=== PATIENT | female | born 1995 | race Caucasian/White ===

== ENCOUNTER 2021-03-03 12:48 | Outpatient (REF) | payer MEDICAID, SELFPAY ==
[2021-03-03 14:52] LABS: MANUAL DIFF FLAG NO
[2021-03-03 14:54] LABS: Basophils Percent Auto 0.1 % (0-2); Eosinophils Absolute Auto 0.1 X10*3/uL (0.0-0.4); Eosinophils Percent Auto 0.6 % (0-4); Hematocrit 44.7 % (37-47); Hemoglobin 14.9 g/dl (12.0-16.0); Imm Gran Abs Auto 0.03 X10*3/uL (0.00-0.03); Imm Gran Pct Auto 0.4 % (0.0-0.4); Lymphocytes Percent Auto 23.4 % (20-40); Mean Corpuscular HGB Conc 33.3 g/dl (31.0-35.0); Mean Corpuscular Hemoglobin 26.7 pg (27.0-33.0); Mean Corpuscular Volume 80.1 fL (80-98); Mean Platelet Volume 11.4 fL (9.4-12.3); Monocytes Absolute Auto 0.5 X10*3/uL (0.1-1.2); Monocytes Percent Auto 6.2 % (2-11); Neutrophils Absolute Auto 5.9 X10*3/uL (2.0-8.3); Neutrophils Percent Auto 69.3 % (45-73); Platelet Count 283 X10*3/uL (160-400); Red Blood Count 5.58 X10*6/uL (4.20-5.50); Red Cell Distribution Width 13.2 % (11.0-16.0); White Blood Count 8.5 X10*3/uL (4.8-10.8)
[2021-03-03 15:00] LABS: Estimated Average Glucose 338 mg/dL; Hemoglobin A1c % 13.4 %
[2021-03-03 15:10] LABS: Alanine Aminotransferase 43 U/L (0-31); Albumin Level 4.6 g/dL (3.5-5.0); Alkaline Phosphatase 123 U/L (39-117); Anion Gap 16 (12-20); Aspartate Amino Transferase 19 U/L (5-31); Bilirubin Total 0.6 mg/dL (0.0-1.0); Blood Urea Nitrogen 12 mg/dL (9-16); C Reactive Protein 1.16 mg/dL (< or = 0.50); Carbon Dioxide 23 mmol/L (22-29); Chloride 104 mmol/L (96-108); Cholesterol 271 mg/dL; Estimated Glomerular Filt Rate > 60; Glucose Random 338 mg/dL (60-115); HDL Cholesterol 38 mg/dL; Iron 62 mcg/dL (30-160); LDL Cholesterol Calculated 167 mg/dl; Percent Iron Saturation 13 % (15-50); Potassium 4.3 mmol/L (3.3-5.1); Sodium 139 mmol/L (135-145); Total Iron Binding Capacity 477 mcg/dL (228-428); Total Protein 7.5 g/dL (6.5-8.0); Triglycerides 330 mg/dL; Unsaturated Iron Binding 415 ug/dL
[2021-03-03 15:34] LABS: Ferritin 240 ng/mL (10-122); TSH reflex Free T4 1.23 uIU/mL (0.32-4.0); Vitamin D 25-OH Total 10.4 ng/mL (>30)
[2021-03-03 15:43] LABS: Folate 16.1 ng/mL (> or = 4.0); Vitamin B12 432 pg/mL (200-900)
[2021-03-04 13:31] LABS: PTHI 50 pg/mL (14-64)
[2021-03-04 21:11] LABS: Insulin Level Total 9.3 uIU/mL
[2021-03-06 17:16] LABS: Zinc 77 mcg/dL (60-130)
[2021-03-07 00:32] LABS: Vitamin A 45 mcg/dL (38-98)
[2021-03-07 06:22] LABS: Vitamin B1 15 nmol/L (8-30)
== END 2021-03-03 12:49 | disposition home or self-care (01) ==
LOC: HO.LAB 12:48
PROVIDERS: PCP Internal Medicine; Referring Provider Internal Medicine; Visit Provider Physician Assistant
DX: E66.01 Morbid (severe) obesity due to excess calories (principal); Z68.44 Body mass index [BMI] 60.0-69.9, adult
CPT/HCPCS: 36415; 80053; 80061; 82306; 82607; 82728; 82746; 83036; 83525; 83540; 83970; 84425; 84443; 84590; 84630; 85025; 86140; 99212

== ENCOUNTER 2021-03-13 11:03 | Outpatient (REF) | payer MEDICAID, SELFPAY ==
--- NOTE | ~2021-03-13 | XR_ITS ---
EXAMINATION: XR CHEST CLINICAL INFORMATION: Bariatric service evaluation. E66.01 COMPARISON: Chest radiograph 10/24/2014. TECHNIQUE: 2 views of the chest were obtained. FINDINGS: Radiographs are mildly underpenetrated. There is no lobar or segmental airspace consolidation or focal groundglass opacity. The costophrenic sulci are clear. The heart is normal in size. The hilar and mediastinal contours and visualized bony structures are unremarkable. XR/XR chest 2V IMPRESSION: Unremarkable examination.
--- NOTE | 2021-03-13 12:54 | ECG_ITS ---
Test Reason : OBESITY Blood Pressure : / mmHG Vent. Rate : 100 BPM Atrial Rate : 100 BPM P-R Int : 180 ms QRS Dur : 108 ms QT Int : 374 ms P-R-T Axes : 039 000 004 degrees QTc Int : 482 ms Normal sinus rhythm Prolonged QT Abnormal ECG When compared with ECG of 05-AUG-2018 12:11, No significant change was found Referred By: Darya Guan Electronically Signed By:Max Rios
[2021-03-14 14:26] LABS: H Pylori Breath Test NOT DETECTED (NOT DETECTED)
== END 2021-03-13 11:04 | disposition home or self-care (01) ==
LOC: HO.XRAY 11:03
PROVIDERS: PCP Internal Medicine; Referring Provider Internal Medicine; Visit Provider Physician Assistant
DX: E66.01 Morbid (severe) obesity due to excess calories (principal); Z11.0 Encounter for screening for intestinal infectious diseases; Z71.3 Dietary counseling and surveillance
CPT/HCPCS: 71046; 83013; 93005; 99211; 99212

== ENCOUNTER 2021-03-31 08:34 | Outpatient (REF) | payer MEDICAID, SELFPAY ==
--- NOTE | ~2021-03-31 | FL_ITS ---
EXAMINATION: XR GI SERIES CLINICAL INFORMATION: Morbid/severe obesity due to excess calories. COMPARISON: None TECHNIQUE: Routine upper GI air-contrast study was performed. FINDINGS: Following oral administration of thick barium and effervescent granules, there is normal propagation of bolus from the oral cavity through the pharynx, esophagus into stomach without any evidence of obstruction, narrowing or stricture. On placing patient supine and prone lying, the course, caliber and peristalsis of the stomach, duodenal bulb and the sweep are normal. The mucosal pattern of the stomach and the duodenum is normal. No gastroesophageal reflux or hiatal hernia seen. FLUOROSCOPY TIME: 1.4 minutes. DOSE AREA PRODUCT: 57.91 uGy-m2 (microgray-meter squared) FL/FL upper GI series IMPRESSION: Unremarkable upper GI air-contrast study.
--- NOTE | ~2021-03-31 | US_ITS ---
EXAMINATION: US COMPLETE ABDOMEN WITH LIVER ELASTOGRAPHY CLINICAL INFORMATION: Morbid obesity. COMPARISON: None. TECHNIQUE: Real-time imaging of the abdominal viscera. Noninvasive ultrasound liver fibrosis assessment is performed using Karen ElastPQ point quantification shear wave elastography (pSWE) with a C5-2 MHz transducer. Multiple elastography samples are obtained. FINDINGS: PANCREAS: Largely obscured by overlying bowel gas. ABDOMINAL AORTA: The proximal, middle, and distal aortic segments are normal in caliber. INFERIOR VENA CAVA: Visualized portions are normal. LIVER: The liver demonstrates normal size, contour and increased echogenicity. No focal lesion or intrahepatic biliary duct dilatation. The right lobe measures 18.0 cm in length. The left lobe measures 16.0 cm in length. Portal flow is towards the liver (hepatopetal). Shear wave liver elastography median stiffness is 1.50 m/s (reference: normal median stiffness is 1.3 m/s or less). IQR/median stiffness to assess sampling precision is 0.19 (reference: good quality data set is IQR/median stiffness of 0.15 or less). GALLBLADDER: Normal. The gallbladder is physiologically distended without evidence of stones, sludge, polyps, wall thickening or pericholecystic fluid. COMMON BILE DUCT: Normal in caliber measuring 0.5 cm in diameter. RIGHT KIDNEY: Normal. No hydronephrosis. No renal calculi or focal parenchymal lesions. The kidney measures 13.5 cm in maximum dimension. LEFT KIDNEY: Normal. No hydronephrosis. No renal calculi or focal parenchymal lesions. The kidney measures 14.0 cm in maximum dimension. SPLEEN: Normal. The spleen measures 12.6 cm in maximum dimension. FREE FLUID: None. US/US abdomen comp w elastography IMPRESSION: 1. There is generalized increase in hepatic echotexture, consistent with fatty infiltration or hepatocellular disease. Please correlate clinically. No focal hepatic mass or intrahepatic biliary dilatation is seen. 2. Liver elastography: Although measurements appear to rule out compensated advanced chronic liver disease, there is statistical variability of the sampling which decreases accuracy. REFERENCE: Society of Radiologists in Ultrasound Liver Stiffness Thresholds (2019): LIVER STIFFNESS THRESHOLDS: *Liver Stiffness equal or less than 1.3 m/s: High probability of being normal. *Liver Stiffness less than 1.7 m/s: In the absence of other known clinical signs, rules out compensated advanced chronic liver disease. *Liver Stiffness 1.7-2.1 m/s: Suggestive of compensated advanced chronic liver disease but need further test for confirmation. *Liver Stiffness over 2.1 m/s: Rules in compensated advanced chronic liver disease. *Liver Stiffness over 2.4 m/s: Suggestive of clinically significant portal hypertension. QUALITY OF DATA SET: *IQR/Median value equal or less than 0.15 implies a quality data set. *IQR/Median value over 0.15 implies a poor quality data set. SIGNIFICANT CHANGE FROM PRIOR EXAM: Significant change if liver stiffness measurement is 10% or greater from prior exam. OTHER CONSIDERATIONS: The stage of liver fibrosis may be overestimated in the setting of acute hepatitis, liver inflammation, elevated liver function tests, hepatic vascular congestion, obstructive cholestasis, non-fasting state, and infiltrative diseases such as amyloidosis and lymphoma. In some patients with NAFLD, the liver stiffness thresholds for compensated advanced chronic liver disease may be lower. In causes other than viral hepatitis and NAFLD, liver stiffness thresholds are not well established.
== END 2021-03-31 08:35 | disposition home or self-care (01) ==
LOC: HO.US 08:34
PROVIDERS: Visit Provider Physician Assistant
DX: Z01.818 Encounter for other preprocedural examination (principal); E66.01 Morbid (severe) obesity due to excess calories; K21.9 Gastro-esophageal reflux disease without esophagitis
CPT/HCPCS: 74240; 76705; 76981

== ENCOUNTER → 2021-04-07 10:32 | Outpatient (BNVA) | payer MEDICAID, SELFPAY | PROVIDERS: PCP Internal Medicine; Visit Provider Dietitian, Registered | DX: E66.01 Morbid (severe) obesity due to excess calories (principal); Z68.43 Body mass index [BMI] 50.0-59.9, adult | CPT/HCPCS: 97802 ==

== ENCOUNTER → 2021-04-23 10:09 | Outpatient (BNVA) | payer MEDICAID, SELFPAY | PROVIDERS: PCP Internal Medicine; Referring Provider Internal Medicine; Visit Provider Physician Assistant ==

== ENCOUNTER → 2021-05-12 09:55 | Outpatient (BNVA) | payer MEDICAID, SELFPAY | PROVIDERS: PCP Internal Medicine; Referring Provider Internal Medicine; Visit Provider Physician Assistant Surgical ==

== ENCOUNTER → 2021-05-14 08:25 | Outpatient (BNVA) | payer MEDICAID, SELFPAY | PROVIDERS: PCP Internal Medicine; Visit Provider Physician Assistant ==

== ENCOUNTER 2021-06-11 15:30 | Outpatient (REF) | payer MEDICAID, SELFPAY ==
[2021-06-11 16:50] LABS: Estimated Average Glucose 126 mg/dL
[2021-06-11 16:55] LABS: Alanine Aminotransferase 96 U/L (0-31); Albumin Level 4.4 g/dL (3.5-5.0); Alkaline Phosphatase 118 U/L (39-117); Aspartate Amino Transferase 38 U/L (5-31); Bilirubin Direct 0.3 mg/dL (0.0-0.5); Bilirubin Total 0.7 mg/dL (0.0-1.0); Total Protein 6.8 g/dL (6.5-8.0)
== END 2021-06-11 15:31 | disposition home or self-care (01) ==
LOC: HO.LAB 15:30
PROVIDERS: PCP Internal Medicine; Referring Provider Internal Medicine; Visit Provider Physician Assistant
DX: E66.01 Morbid (severe) obesity due to excess calories (principal); Z68.43 Body mass index [BMI] 50.0-59.9, adult; R94.31 Abnormal electrocardiogram [ECG] [EKG]; E11.9 Type 2 diabetes mellitus without complications; Z79.4 Long term (current) use of insulin
CPT/HCPCS: 36415; 80076; 83036; 99212

== ENCOUNTER → 2021-06-18 08:46 | Outpatient (BNVA) | payer MEDICAID, SELFPAY | PROVIDERS: PCP Internal Medicine; Visit Provider Surgery ==

== ENCOUNTER → 2021-07-07 08:06 | Outpatient (REF) | payer MEDICAID, SELFPAY ==
--- NOTE | 2021-07-07 08:10 | CA_ITS ---
Transthoracic Echocardiogram Patient (Last, First, Middle): Yulia Ryan, Gender: Female Date of : 1995 Age: 25 Procedure Date: 07/07/2021 Procedure Type: Transthoracic Echocardiogram Location: OP Height: 162.56 cm Weight: 135.17 kg BSA: 2.32 m2 Heart Rate: bpm BP: 130 / 80 mmHg Preload Supervisor: DEONNA Genao MD: Darya Guan PA-C Symptoms: R94.31 - Abnormal electrocardiogram [ECG] [EKG] Study Quality: Technically Difficult/Contrast ECG Rhythm: Sinus Conclusions: - The left ventricular systolic function is moderately decreased. The calculated ejection fraction is 34% by biplane method. - No obvious valvular pathology seen on this study. Findings Procedure Information Contrast agent, definity, is being given per protocol without apparent complications. Left Ventricle Normal left ventricular cavity size. There is normal left ventricular wall thickness. The left ventricular systolic function is moderately decreased. The calculated ejection fraction is 34% by biplane method. There is moderate global hypokinesis. Diastolic function is normal for age. Right Ventricle Normal right ventricular cavity size and systolic function. TAPSE 2cm. Atria Both atria are normal in size. Aortic Valve There is a normal trileaflet aortic valve. There is no aortic valve stenosis. There is no aortic valve regurgitation. Mitral Valve The mitral valve appears normal. There is no mitral valve regurgitation. There is no mitral valve stenosis. Pulmonic Valve The pulmonic valve was not well visualized. Tricuspid Valve Normal tricuspid valve structure. There is trace tricuspid valve regurgitation. The pulmonary artery systolic pressure is normal. Great Vessels The aortic annulus, sinuses of valsalva, asc aorta, and aortic arch are normal in size. Venous The inferior vena cava is normal in size and collapses less than 50% with inspiration. Pericardium/Pleural There is no evidence of pericardial effusion. Prior Study Comparison No prior study available for comparison. Recommendations, Care & Conclusions No obvious valvular pathology seen on this study. Measurements 2D Linear Measurements IVSd: 1.07 0.6-0.9/0.6-1.0 cm LVIDd: 5.30 3.9-5.3/4.2-5.9 cm LVIDd Index: 2.28 2.4-3.2/2.2-3.1 cm/m2 LVIDs: 4.07 2.0-3.6 cm LVPWd: 0.90 0.7-1.1 cm Ao Root: 2.90 2.1-3.5 cm LA Diam: 3.60 2.7-3.8/3.0-4.0 cm LAIDs Index: 1.55 1.5-2.3 cm/m2 LV Mass: 245.44 67-162/88-224 g LV Mass Index: 105.79 43-95/49-115 g/m2 LVOT Diam: 2.10 3.0+(-)1.3 cm 2D Systolic Function EF 4C: 39.10 >55% EF 2C: 32.20 >55% EF BiP: 33.90 >55% Mitral Valve MV Pk E: 0.87 MV PK A: 0.59 MV Decel Time: 236.00 E/A: 1.50 E'Lateral: 10.90 E'Medial: 7.40 E/E' Med: 11.80 E/E' Lat: 8.00 PHT: 69.00 MVA PHT: 3.19 Decel Castro: 3.70 Aortic Valve AoV Pk Ras: 1.55 AoV Mn Ras: 1.09 AoV VTI: 0.30 AoV Pk Grad: 10.00 Aov Mn Grad: 5.00 VICK Cont.VTI: 2.29 LVOT LVOT Pk Ras: 0.92 LVOT Mn Ras: 0.68 LVOT VTI: 0.20 LVOT Pk Grad: 3.00 LVOT Mn Grad: 2.00 LVOT Diam: 2.10 LVOT Area: 3.46 Diastolic Function MV Pk E: 0.87 MV Pk A: 0.59 E/A: 1.50 E'Medial: 7.40 E/E' Med: 11.80 E' Laterial: 10.90 E/E' Lat: 8.00 Right Ventricle TAPSE (mm): 1.98 TVS' Ras: 13.40 Tricuspid Valve TR Pk Ras: 2.10 TR Pk Grad: 18.00 RA Press: 8.00 RVSP: 26.00 Great Vessels Aorta Ao Root-2D: 2.90 2.0-3.7 cm Ao Asc: 2.80 2.1-3.4 cm Ao Arch: 2.60 Updated in Other Vendor System with Status of Final Nicolas Bauman MD electronically signed on 07/07/2021 4:46:57 PM with status of Final
== END ==
LOC: HO.CARD 08:06
PROVIDERS: Visit Provider Physician Assistant
DX: R94.31 Abnormal electrocardiogram [ECG] [EKG] (principal)
CPT/HCPCS: 93306; Q9957

== ENCOUNTER → 2021-07-18 08:06 | Outpatient (BNVA) | payer MEDICAID, SELFPAY | PROVIDERS: PCP Internal Medicine; Visit Provider Surgery ==

== ENCOUNTER → 2021-07-23 14:50 | Outpatient (BNVA) | payer MEDICAID, SELFPAY | PROVIDERS: PCP Internal Medicine; Referring Provider Surgery; Visit Provider Internal Medicine Cardiovascular Disease | DX: Z01.810 Encounter for preprocedural cardiovascular examination (principal); I42.9 Cardiomyopathy, unspecified; E66.01 Morbid (severe) obesity due to excess calories; Z68.42 Body mass index [BMI] 45.0-49.9, adult | CPT/HCPCS: 99202 ==

== ENCOUNTER → 2021-08-11 07:50 | Outpatient (BNVA) | payer MEDICAID, SELFPAY | PROVIDERS: PCP Internal Medicine; Visit Provider Surgery ==

== ENCOUNTER → 2021-08-22 10:46 | Outpatient (REF) | payer MEDICAID, SELFPAY ==
--- NOTE | 2021-08-22 10:49 | CA_ITS ---
Acquisition Time: 2021-08-22 10:53:22 Total Exercise Time: 00:08:51 Test Indications: CARDIOMYOPATHY Medications: SEE CHART Protocol: LIYA Max HR: 184 BPM 93% of Pred: 196 BPM Max BP: 172/084 mmHG Max Work Load: 10.1 METS Exercise stress test with exercise 8 min 51 sec of Liya protocol, without anginal symptoms, without arrythmia, with normotensive response to exercise, without EKG changes meeting criteria for ischemia. Echo images obtained by tech at rest and immediately post peak exercise. Definity contrast used. Test reviewed with Dr Bauman. Referred By: Max Rios Overread By: ELINA CARMEN
== END ==
LOC: HO.CARD 10:46
PROVIDERS: Visit Provider Internal Medicine Cardiovascular Disease
DX: I42.9 Cardiomyopathy, unspecified (principal)
CPT/HCPCS: 93350; Q9957

== ENCOUNTER → 2021-08-27 12:57 | Outpatient (BNVA) | payer MEDICAID, SELFPAY | PROVIDERS: PCP Internal Medicine; Referring Provider Internal Medicine; Visit Provider Physician Assistant Surgical ==

== ENCOUNTER 2021-09-03 06:43 | Inpatient (IN) | payer MEDICAID, SELFPAY ==
[2021-08-29 07:16] LABS: MANUAL DIFF FLAG NO
[2021-08-29 07:48] LABS: Basophils Percent Auto 0.3 % (0-2); Eosinophils Absolute Auto 0.1 X10*3/uL (0.0-0.4); Eosinophils Percent Auto 0.7 % (0-4); Hematocrit 38.9 % (37.0-47.0); Imm Gran Abs Auto 0.01 X10*3/uL (0.00-0.03); Imm Gran Pct Auto 0.1 % (0.0-0.4); Lymphocytes Absolute Auto 2.7 X10*3/uL (1.2-4.9); Lymphocytes Percent Auto 37.9 % (20-40); Mean Corpuscular HGB Conc 33.4 g/dl (31.0-35.0); Mean Corpuscular Hemoglobin 28.4 pg (27.0-33.0); Mean Corpuscular Volume 84.9 fL (80.0-98.0); Mean Platelet Volume 12.4 fL (9.4-12.3); Monocytes Absolute Auto 0.5 X10*3/uL (0.1-1.2); Monocytes Percent Auto 7.1 % (2-11); Neutrophils Absolute Auto 3.8 x10*3/uL (2.0-8.3); Neutrophils Percent Auto 53.9 % (45-73); Platelet Count 242 X10*3/uL (160-400); Red Blood Count 4.58 X10*6/uL (4.20-5.50); Red Cell Distribution Width 13.3 % (11.0-16.0); White Blood Count 7.1 X10*3/uL (4.8-10.8)
[2021-08-29 07:52] LABS: INTERNATIONAL NORM RATIO 1.3 (0.9-1.1); Prothrombin Time 14.5 SEC (9.9-13.0)
[2021-08-29 07:55] LABS: Partial Thromboplastin Time 41.1 SEC (24.1-38.0)
[2021-08-29 08:24] LABS: Estimated Average Glucose 91 mg/dL; Hemoglobin A1c % 4.8 %
[2021-08-29 08:36] LABS: Alanine Aminotransferase 71 U/L (0-31); Albumin Level 4.1 g/dL (3.5-5.0); Alkaline Phosphatase 95 U/L (39-117); Anion Gap 15 (12-20); Aspartate Amino Transferase 37 U/L (5-31); Bilirubin Total 0.9 mg/dL (0.0-1.0); Blood Urea Nitrogen 9 mg/dL (9-16); C Reactive Protein 0.88 mg/dL (< or = 0.50); Calcium 9.9 mg/dL (8.4-10.2); Carbon Dioxide 24 mmol/L (22-29); Chloride 105 mmol/L (96-108); Cholesterol 196 mg/dL; Estimated Glomerular Filt Rate > 60; Glucose Random 91 mg/dL (60-115); HDL Cholesterol 28 mg/dL; LDL Cholesterol Calculated 147 mg/dl; Potassium 3.9 mmol/L (3.3-5.1); Sodium 140 mmol/L (135-145); Total Protein 6.7 g/dL (6.5-8.0); Triglycerides 107 mg/dL
[2021-08-29 08:46] LABS: TSH reflex Free T4 2.55 uIU/mL (0.32-4.0)
[2021-08-29 12:39] VITALS: BMI 46.1
[2021-08-29 20:49] LABS: Insulin 9 uU/mL (2-29)
--- NOTE | 2021-09-01 19:59 | MHC.SHP ---
Pre-Procedural Eval Section A Date of Service: 09/01/21 The patient is an INPATIENT: Yes The History & Physical has been completed within 30 days and I have reviewed it.: No Section B Chief Complaint: obesity Relevant Family History (Specify if Yes): Yes Relevant Social History: None Present Medications: None Medical History: No relevant PMH History of Previous Operations: No relevant previous surgery Allergies: Allergies Allergy/AdvReac Type Severity Reaction Status Date / Time No Known Allergies Allergy Verified 08/29/21 12:39 [No Known Allergies*] Review of Systems Sugical H&P ROS: Negative: Constitution, Cardiovascular, Respiratory, Neurological, Psychiatric, Hem-Onc, Allergic/Immunologic, Gastrointestinal, Genitourinary, Musculoskeletal, Integumentary, Endocrine and Eyes/Ears/Nose/Throat Exam Surgical H&P Exam: Normal: HEENT, Normal: Heart, Normal: Lungs, Normal: Extremities, Normal: Abdomen, Normal: Skin and Normal: Neurological Plan Diagnosis/Plan: Unchanged I have reviewed the history and physical and performed a pertinent physical examination on my patient. No changes have occurred unless specified.
--- NOTE | 2021-09-02 10:58 | HO.ANESPROP2 ---
Documented by User: Cheyenne Rojas NP 09/02/21 11:03 HPI - Anesthesia Eval Consult details Narrative: 25yo F for Gastrectomy Sleeve,EGD,poss diaphragmatic hernia,poss ventral hernia,poss open, Cardiac cleared at low to intermed risk PMFSH Active Problems Active Problems: All Active Problems (Updated 08/29/21 @ 12:43 by Dinah Pizano, RN) Morbid obesity (Acute) MDD (major depressive disorder), recurrent episode, moderate (Acute) Abnormal ECG (Acute) Insulin dependent type 2 diabetes mellitus (Acute) Low left ventricular ejection fraction (Acute) Cardiomyopathy (Acute) Preop cardiovascular exam (Acute) Hypertension (Acute) Past Medical History Medical History (Updated 08/29/21 @ 12:43 by Dinah Pizano RN) Hypertension MARCIA (obstructive sleep apnea) Family History Family History Mother Bipolar 1 disorder Father Heart disease Brother No problems noted. Brother No problems noted. Sister No problems noted. Surgical History Surgical History No significant past surgical history Social History Social History (Updated 08/29/21 @ 12:37 by Dinah Pizano RN) Household Members Other:: mother Are you a primary manager of care to a significant other at home: No Do you presently have visiting nurse or other home services: No Alcohol intake: never Patient Tobacco Use Status: Never used Tobacco Use of substances other than those prescribed or required for medical reasons: No Have you been hit, kicked, punched, or otherwise hurt by someone within the past year? If so, by whom?: No Are you DNR?: No Advance Directives: No Advance Directives Information Provided: Yes Advance Directives on File: No Recently lost weight without trying: No Patient : No FDLMP: 08/28/2021 : No Poor oral hygiene: No Meds Allergies Allergy/AdvReac Type Severity Reaction Status Date / Time No Known Allergies Allergy Verified 08/29/21 12:39 [No Known Allergies*] Exam Exam Date and Time: September 02, 2021 1058 Height,Weight and Vital Signs: Height 5 ft 4 in Weight 122.016 kg Pertinent Lab Results Pertinent Lab Results: Laboratory Tests 08/29/21 08/29/21 08/29/21 07:10 07:14 07:14 WBC 7.1 RBC 4.58 Hgb 13.0 Hct 38.9 MCV 84.9 MCH 28.4 MCHC 33.4 RDW 13.3 Plt Count 242 MPV 12.4 H Immature Gran % (Auto) 0.1 Neut % (Auto) 53.9 Lymph % (Auto) 37.9 [place] % (Auto) 7.1 Eos % (Auto) 0.7 Baso % (Auto) 0.3 Lymph # (Auto) 2.7 [place] # (Auto) 0.5 Eos # (Auto) 0.1 Baso # (Auto) 0.0 Abs Immat Gran (auto) 0.01 Absolute Neuts (auto) 3.8 Absolute Nucleated RBC 0.000 Nucleated RBC % (auto) 0.0 PT 14.5 H INR 1.3 H APTT 41.1 H Sodium Potassium Chloride Carbon Dioxide Anion Gap BUN Creatinine Estim Creat Clear Calc Estimated GFR Random Glucose Estimat Average Glucose Hemoglobin A1c % Insulin Level Calcium Total Bilirubin AST ALT Alkaline Phosphatase C-Reactive Protein Total Protein Albumin Triglycerides Cholesterol LDL Cholesterol, Calc HDL Cholesterol TSH Blood Type O Positive Antibody Screen NEGATIVE 08/29/21 08/29/21 07:14 07:14 WBC RBC Hgb Hct MCV MCH MCHC RDW Plt Count MPV Immature Gran % (Auto) Neut % (Auto) Lymph % (Auto) [place] % (Auto) Eos % (Auto) Baso % (Auto) Lymph # (Auto) [place] # (Auto) Eos # (Auto) Baso # (Auto) Abs Immat Gran (auto) Absolute Neuts (auto) Absolute Nucleated RBC Nucleated RBC % (auto) PT INR APTT Sodium 140 Potassium 3.9 Chloride 105 Carbon Dioxide 24 Anion Gap 15 BUN 9 Creatinine 0.57 Estim Creat Clear Calc TNP Estimated GFR > 60 Random Glucose 91 Estimat Average Glucose 91 Hemoglobin A1c % 4.8 Insulin Level 9 Calcium 9.9 Total Bilirubin 0.9 AST 37 H ALT 71 H Alkaline Phosphatase 95 C-Reactive Protein 0.88 H Total Protein 6.7 Albumin 4.1 Triglycerides 107 Cholesterol 196 D LDL Cholesterol, Calc 147 HDL Cholesterol 28 D TSH 2.55 Blood Type Antibody Screen Narrative Narrative: EKG 03/2021 Vent. Rate : 100 BPM ? ? Atrial Rate : 100 BPM ?? P-R Int : 180 ms? QRS Dur : 108 ms ? ? QT Int : 374 ms ? ? ? P-R-T Axes : 039 000 004 degrees ?? QTc Int : 482 ms ? Normal sinus rhythm Prolonged QT Abnormal ECG When compared with ECG of 05-AUG-2018 12:11, No significant change was found ECHO 06/2021 Conclusions: - The left ventricular systolic function is moderately decreased. The calculated ejection fraction is 34% by biplane method. ? ? ? - No obvious valvular pathology seen on this study.? ?? Stress ECHO 08/2021 Normal LVEF without any regional wall motion abnormalities (RWMA)? at rest. LV size is smaller after stress with appropriate augmentation of the LVEF. There are no RWMA on the post stress images. ? Impression: Normal stress echocardiogram. Assessment and Plan Assessment Anesthesia Assessment: Chart Reviewed Documented by User: Arthur Givens MD 09/03/21 07:14 [facility] Past Medical History Medical History (Updated 08/29/21 @ 12:43 by Dinah Pizano RN) Hypertension MARCIA (obstructive sleep apnea) Family History Family History Mother Bipolar 1 disorder Father Heart disease Brother No problems noted. Brother No problems noted. Sister No problems noted. Family history of problems with anesthesia: No Surgical History Surgical History No significant past surgical history History of Problems with Anesthesia: No Social History Social History (Updated 08/29/21 @ 12:37 by Dinah Pizano RN) Household Members Other:: mother Are you a primary manager of care to a significant other at home: No Do you presently have visiting nurse or other home services: No Alcohol intake: never Patient Tobacco Use Status: Never used Tobacco Use of substances other than those prescribed or required for medical reasons: No Have you been hit, kicked, punched, or otherwise hurt by someone within the past year? If so, by whom?: No Are you DNR?: No Advance Directives: No Advance Directives Information Provided: Yes Advance Directives on File: No Recently lost weight without trying: No Patient : No FDLMP: 08/28/2021 : No Poor oral hygiene: No Meds Allergies Allergy/AdvReac Type Severity Reaction Status Date / Time No Known Allergies Allergy Verified 08/29/21 12:39 [No Known Allergies*] Exam Airway Mallampati Class: I TM Dist: >3cm Neck ROM: Full Assessment and Plan Assessment Anesthesia Assessment: Anesthesia Plan Discussed Final Anesthetic Review Family History of Problems with Anesthesia: No History of Problems with Anesthesia: No NPO: Yes ASA Class: III Final Preanesthetic Review: No Changes in Pt Med Stat, Meds/Allgs Chart Reviewed, Consent Obtained/Reviewed and Anes Risks/Benef Reviewed Patient Risk: Intermediate Procedure Risk: Intermediate Anesthetic Plan Anesthetic Plan: GA Disposition: Inp. Admit - Standard Bed
[2021-09-02 13:13] LABS: COVID-19 Test Negative (Negative)
[2021-09-03] VITALS (12 sets, daily range): BP systolic 135–156; BP diastolic 74–98; PULSE 68–113; RESP 16–24; TEMP 36.2–37.2; O2SAT 98–100
--- NOTE | 2021-09-03 07:14 | P.CONAN_ITS ---
[facility] Active Problems Active Problems: All Active Problems (Updated 08/29/21 @ 12:43 by Dinah Pizano RN) Morbid obesity (Acute) MDD (major depressive disorder), recurrent episode, moderate (Acute) Abnormal ECG (Acute) Insulin dependent type 2 diabetes mellitus (Acute) Low left ventricular ejection fraction (Acute) Cardiomyopathy (Acute) Preop cardiovascular exam (Acute) Hypertension (Acute) Past Medical History Medical History (Updated 08/29/21 @ 12:43 by Dinah Pizano RN) Hypertension MARCIA (obstructive sleep apnea) Family History Family History Mother Bipolar 1 disorder Father Heart disease Brother No problems noted. Brother No problems noted. Sister No problems noted. Family history of problems with anesthesia: No Surgical History Surgical History No significant past surgical history History of Problems with Anesthesia: No Social History Social History (Updated 08/29/21 @ 12:37 by Dinah Pizano RN) Household Members Other:: mother Are you a primary personal care attendant to a significant other at home: No Do you presently have visiting nurse or other home services: No Alcohol intake: never Patient Tobacco Use Status: Never used Tobacco Use of substances other than those prescribed or required for medical reasons: No Have you been hit, kicked, punched, or otherwise hurt by someone within the past year? If so, by whom?: No Are you DNR?: No Advance Directives: No Advance Directives Information Provided: Yes Advance Directives on File: No Recently lost weight without trying: No Patient : No FDLMP: 08/28/2021 : No Poor oral hygiene: No Meds Allergies Allergy/AdvReac Type Severity Reaction Status Date / Time No Known Allergies Allergy Verified 08/29/21 12:39 [No Known Allergies*] Active Medications: Current Medications Lactated Ringer's (Lr) 1,000 mls @ 100 mls/hr IVCONT .Q10H SAGE Lactated Ringer's (Lr) 1,000 mls @ 999 mls/hr IV .Q1H1M SAGE Stop: 09/03/21 07:45 Exam Exam Date and Time: September 03, 2021 0714 Height,Weight and Vital Signs: Height 5 ft 4 in Weight 122.016 kg Pertinent Lab Results Pertinent Lab Results: Laboratory Tests 08/29/21 08/29/21 08/29/21 07:10 07:14 07:14 WBC 7.1 RBC 4.58 Hgb 13.0 Hct 38.9 MCV 84.9 MCH 28.4 MCHC 33.4 RDW 13.3 Plt Count 242 MPV 12.4 H Immature Gran % (Auto) 0.1 Neut % (Auto) 53.9 Lymph % (Auto) 37.9 [place] % (Auto) 7.1 Eos % (Auto) 0.7 Baso % (Auto) 0.3 Lymph # (Auto) 2.7 [place] # (Auto) 0.5 Eos # (Auto) 0.1 Baso # (Auto) 0.0 Abs Immat Gran (auto) 0.01 Absolute Neuts (auto) 3.8 Absolute Nucleated RBC 0.000 Nucleated RBC % (auto) 0.0 PT 14.5 H INR 1.3 H APTT 41.1 H Sodium Potassium Chloride Carbon Dioxide Anion Gap BUN Creatinine Estim Creat Clear Calc Estimated GFR Random Glucose Estimat Average Glucose Hemoglobin A1c % Insulin Level Calcium Total Bilirubin AST ALT Alkaline Phosphatase C-Reactive Protein Total Protein Albumin Triglycerides Cholesterol LDL Cholesterol, Calc HDL Cholesterol TSH COVID-19 (DANIA) COVID-19 Clin Com Blood Type O Positive Antibody Screen NEGATIVE 08/29/21 08/29/21 09/02/21 07:14 07:14 12:45 WBC RBC Hgb Hct MCV MCH MCHC RDW Plt Count MPV Immature Gran % (Auto) Neut % (Auto) Lymph % (Auto) [place] % (Auto) Eos % (Auto) Baso % (Auto) Lymph # (Auto) [place] # (Auto) Eos # (Auto) Baso # (Auto) Abs Immat Gran (auto) Absolute Neuts (auto) Absolute Nucleated RBC Nucleated RBC % (auto) PT INR APTT Sodium 140 Potassium 3.9 Chloride 105 Carbon Dioxide 24 Anion Gap 15 BUN 9 Creatinine 0.57 Estim Creat Clear Calc TNP Estimated GFR > 60 Random Glucose 91 Estimat Average Glucose 91 Hemoglobin A1c % 4.8 Insulin Level 9 Calcium 9.9 Total Bilirubin 0.9 AST 37 H ALT 71 H Alkaline Phosphatase 95 C-Reactive Protein 0.88 H Total Protein 6.7 Albumin 4.1 Triglycerides 107 Cholesterol 196 D LDL Cholesterol, Calc 147 HDL Cholesterol 28 D TSH 2.55 COVID-19 (DANIA) Negative COVID-19 Clin Com See Note Blood Type Antibody Screen Assessment and Plan Final Anesthetic Review Family History of Problems with Anesthesia: No History of Problems with Anesthesia: No
[2021-09-03 07:24] LABS: Glucose, Whole Blood 84 mg/dL (60-115)
[2021-09-03] MEDS: Lactated Ringers 1,000 ML 999 ML IV (07:50)
[2021-09-03] MEDS: Lactated Ringers 1,000 ML 100 ML IVCONT ×3 (07:50→21:17)
--- NOTE | 2021-09-03 08:11 | PC.NURSE ---
Patient arrived to preop for prep. Attempted to urinate x3 to obtain sample for HCG. Unable to obtain sample. Per patient, she has never had intercourse. Dr. Givens and Dr. Gutierrez aware. Okay per both doctors to proceed with surgery without urine sample to check for .
--- NOTE | 2021-09-03 11:03 | P.DS_ITS ---
DS: Providers Provider Date of Service: 09/04/21 Date of admission: 09/03/21 06:43 Primary care physician: Marcella Khan MD DS: Summary Hospital Course Hospital Course: ADMITTING DIAGNOSIS: morbid obesity, HTN DISCHARGE DIAGNOSIS: same, s/p laparoscopic sleeve gastrectomy PAST SURGICAL HISTORY: none PROCEDURE: upper endoscopy, laparoscopic sleeve gastrectomy DISCHARGE SUMMARY: History of Present Illness: The patient is a 25 year-old woman with a BMI of 61.9 kg/m2 and associated co- morbidities as described above. The patient had extensive work-up,lost 96.8 lbs preoperatively and was electively scheduled for laparoscopic, possible open sleeve gastrectomy and gastropexy. Risks and complications of the surgery were discussed with the patient in advance, particularly the possibility of , pulmonary embolism, anastomotic leak, bleeding, bowel injury, GERD, cardiac, renal or pulmonary complications. The patient understood all the risks and was in agreement with the surgical plan. Hospital Course: The patient underwent an uneventful laparoscopic sleeve gastrectomy with gastropexy on the day of admission. Postoperatively, the patient was transferred to the surgical floor. The patient received IV Acetaminophen and IV dilaudid for pain control. Patient was started on bariatric phase 1 diet POD #0. On postoperative day one, the patient was feeling well without nausea, vomiting, fevers, or tachycardia. The patient had some mild incisional pain and the abdomen was soft. On the morning of postoperative day one, the patient was continued on 1 ounce of water or ice every half hour. During the day, the patient did fairly well, having some incisional pain, but able to ambulate adequately and to tolerate liquids well. Since the patient is doing well, we decided that the patient was ready to be discharged. The patient was given instructions to follow-up with me next week and to call my office for any fever over 101, persistent abdominal pain, nausea, vomiting, GERD, symptoms of DVT such as calf tenderness, or leg swelling, or pulmonary embolism such as chest pain or shortness of breath. The patient was also instructed to drink 40-60 ounces of liquids per day using the 1-ounce cups. The patient had been given prescriptions for Tylenol for pain, Zofran prn for nausea, and pantoprazole and carafate previously. The patient was encouraged to ambulate and use the incentive spirometer. The patient was allowed to shower, but no baths, and encouraged to stay active at home. All of these instructions were given to the patient personally. All questions were answered and the patient understood all instructions, the instructions were also given to the patient in print. Time Spent with Patient Time attestation: Total time spent providing and/or coordinating discharge services: Discharge coordination time: Less than 30 minutes Quality: Stroke Does the patient have a stroke diagnosis?: No Physical Exam Verdana 4l Vital Signs: Verdana 4d Verdana 4d Vital Signs: Verdana 4d Verdana 4Bd Last Vital Signs Verdana 4d Stove Mounter New 4d Stove Mounter New 4d Temp 97.5 F 09/03/21 07:23 Stove Mounter New 4d Pulse 91 09/03/21 07:23 Stove Mounter New 4d Resp 16 09/03/21 07:23 BP 139/86 09/03/21 07:23 Pulse Ox 99 09/03/21 07:23 BMI result Body Mass Index 46.1 DS: Data Data Completed and Pending Pending studies at discharge: Pending at discharge 09/03/21 10:30 Surgical [PTH] Routine Labs on day of discharge: Laboratory Results - last 24 hr 09/02/21 09/03/21 12:45 07:20 POC Glucose 84 COVID-19 (DANIA) Negative COVID-19 Clin Com See Note Discharge Plan Discharge Anticipated Discharge Date/Time: 09/04/21 10:00 Patient Disposition: Home, Self-Care Discharge Diagnosis: s/p sleeve gastrectomy Referrals: Marcella Khan MD [Primary Care Provider] - 1 Week Discharge Medications: Continued (DME) blood-glucose meter [Blood Glucose Monitoring] Kit See Rx Instructions .Route Qty: 1 0RF Rx Instructions: As directed metoprolol succinate [Toprol XL] 25 mg tablet extended release 24 hr 25 mg PO DAILY Qty: 30 3RF pantoprazole 40 mg tablet,delayed release (DR/EC) 40 mg PO DAILY Qty: 30 2RF sucralfate 100 mg/mL suspension 10 ml PO BID Qty: 400 2RF ondansetron HCl 4 mg tablet 4 mg PO Q12H Qty: 20 0RF Discontinued cholecalciferol (vitamin D3) 50 mcg (2,000 unit) tablet 50 mcg PO DAILY 180 Days Qty: 180 3RF cyanocobalamin (vitamin B-12) 500 mcg tablet 500 mcg PO DAILY Qty: 30 6RF polyethylene glycol 3350 [Miralax] 17 gram powder in packet 17 g PO DAILY Qty: 14 0RF Rx Instructions: Mix each packet with 8oz of water and do 7 packets on 09/01/21 and another 7 packets on 09/02/21 Discharge Orders: Discharge Order (Routine); Ordered 09/04/21 Ordered By: Ruben Bird Diet: other Activity on Discharge: No heavy lifting Stand Alone Forms: Patient Portal Discharge page Care Plan Goals: weight loss Health Concerns: morbid obesity Plan of Treatment: No tub baths, sex or returning to work until discussed at first post op appointment. No exercise, alcohol, tobacco or illegal drug use. Continue to use incentive spirometer hourly while awake. Walk in home for 5- 10 minutes every 2 hours during the first week. Continue phase 1 diet today and start phase 2 diet tomorrow morning. Follow all instructions in the bariatric handbook and call with any questions. 1. Please call your doctor or come back to the emergency room should any new symptoms arise. 2. You will receive a courtesy call from [facility] 24-48 hours after discharge. 3. Activity: abstain from alcohol, practice limited stair climbing, no bending, no driving, no exercise, no illicit substances, no lifting, no sex, no tub bath, no work. 4. Diet: continue as discussed with Dr. Bird. 5. Dressing Change/Wound Care: Do not change or remove surgical dressings unless they are wet or soiled. 6. Call your doctor if: - Your temperature exceeds 101.5 F - You experience excessive pain or swelling - You have an unexpected reaction to medication - You have excessive bleeding - You experience continued vomiting/nausea - Your incision begins to separate - Your incision shows signs of infection such as increased redness, swelling, excessive pain, heat, or drainage (light blood or clear fluid is normal) 7. General instructions: No lifting greater than 5 lbs for the next 4 weeks[address] driving within 24 hours of taking narcotic pain medications. If you do not move your bowels in the next 2 days, please take milk of magnesia over the counter. Please follow the post op diet and do not advance your diet until you are seen in the office in about 2 weeks. Please walk around your home every hour or two to prevent blood clots from forming in your legs. You do not need to wake from sleeping to walk. Please sleep in a bed or couch to prevent kinking at the hips and knees. Please take your incentive spirometer (your lung humanities professor) home with you and use it for the next few days to prevent pneumonias. You may shower, no hot tubs, baths or swimming pools. Please call the office with any questions or concerns such as increasing abdominal pain, fever, chills, shortness of breath, chest pain, leg pain or swelling, or redness or drainage from your incisions. Do not hesitate to contact the office with any questions at . The patient's medical history has been reviewed and they are considered low risk for post op DVT and therefore DVT prophylaxis is not considered necessary. Travel after surgery was reviewed. The patient has not disclosed any travel plans during the first 30 days after surgery and they have been advised that within the first 30 days after surgery any bus, plane, train or car travel over 2 hours in duration is contraindicated due to the possibility of developing blood clots from immobility. Any travel, needs to include periods of ambulation of 10 minutes in duration every 2 hours. The patient was instructed to discuss any plans for travel during this period with their bariatric surgeon. Assessment: stable post op sleeve gastrectomy
[2021-09-03 12:09] LABS: Hematocrit 38.9 % (37.0-47.0); Hemoglobin 13.2 g/dl (12.0-16.0)
[2021-09-03 12:25] LABS: Anion Gap 22 (12-20); Blood Urea Nitrogen 6 mg/dL (9-16); Calcium 9.5 mg/dL (8.4-10.2); Carbon Dioxide 20 mmol/L (22-29); Chloride 100 mmol/L (96-108); Estimated Glomerular Filt Rate > 60; Glucose Random 183 mg/dL (60-115); Potassium 3.5 mmol/L (3.3-5.1); Sodium 138 mmol/L (135-145)
[2021-09-03] MEDS: ondansetron HCL 4 MG/2 ML VIAL IVPUSH ×2 (12:26→19:11)
[2021-09-03] MEDS: Famotidine/PF 20 MG/2 ML VIAL IVPUSH ×2 (12:26→21:17)
[2021-09-03] MEDS: ceFAZolin Sodium/Dextrose,Iso 2 GM/50 ML PIGGYBACK IV (14:25)
--- NOTE | 2021-09-03 15:03 | MHC.CM.PN ---
CM meet with patient. A&O x3 able to make needs known and answer questions. Patient reports living at home with her mother. Will not need services on d/c. Anticipate D/C 09/04 AM.
--- NOTE | 2021-09-03 17:20 | P.BOP_ITS ---
Brief Operative Note Date of Service: 09/03/21 Pre-op diagnosis: Morbid obesity with comorbid conditions (see below) Post-op diagnosis: same Procedure: INITIAL PATIENT BMI ON PRESENTATION AT OUR OFFICE: 61.9 kg/m2 LAST BMI BEFORE SURGERY: 46.7 kg/m2 COMORBIDITIES: insulin dependent diabetes, cardiomyopathy, liver steatosis, liver fibrosis ?The patient presented to the Weight Management Program with significant obesity that was negatively impacting the patient's comorbidities as listed above.? The program is a phased program with a special focus on preoperative medical weight management to promote substantial weight loss and prepare the patients for the second phase of the program: bariatric surgery. The patient participated in an intensive weekly lifestyle ?intervention and exercise program during which the patient ?has lost between the initial office visit and the last preoperative visit 102 lbs, or 27.4% of initial actual body weight. It was deemed appropriate for the patient to now have bariatric surgery. In light of the current Covid-19 pandemic and the well documented strong association of obesity and increased risk of worse outcomes if infected with Covid-19 (REFERENCES: https://pubmed.ncbi.nlm.nih.gov/69288836/ ,? https://pubmed.ncbi.nlm.nih.gov/80457743/ ), any delay in undergoing bariatric surgery may lead to the patient's worsening health condition and increased?risk of more severe Covid-19 disease if infected. In addition a recent?study from [facility] published in [facility] on 08/04/2021 ([email or web address]:/[id number]) found that, among patients with obesity, substantial weight loss achieved with surgery was associated with improved outcomes of COVID-19 infection. The findings suggest that obesity can be a modifiable risk factor for the severity of COVID-19 infection. In addition, the patient met the BMI-criteria for bariatric surgery based on the BMI on initial presentation. The patient should not be penalized for achieving such weight loss because ?it is not sustainable long-term without surgical intervention and it was achieved in preparation for bariatric surgery ?under my direction and based on my published research ([email or web address]).pdf and? https://www.soard.org/article/[email or web address](86)15983-X/pdf ) ?that a 10% preoperative weight loss improves long-term weight loss after surgery and reduces perioperative complications.? Insurance carriers such as [facility] have endorsed my recommendations ?and have included in their policies criteria to include a 10% preoperative weight loss requirement. PROCEDURE: Esophago-gastroscopy, laparoscopic sleeve gastrectomy and laparoscopic gastropexy INDICATIONS: This is a 25 year-old female who was electively scheduled for laparoscopic, possibly open sleeve gastrectomy. The risks and complications of the procedure were discussed with the patient in advance, particularly the possibility of ; pulmonary embolism; staple line leak; bleeding; GERD; cardiac, pulmonary, or renal complications; as well as long-term problems such as insufficient weight loss, vitamin deficiency, strictures, or ulcers. The patient understood all the risks, and was in agreement to proceed with surgery. DESCRIPTION OF PROCEDURE: After informed consent was obtained from the patient, the patient was given preoperative antibiotics, and was transferred to the operating room. After successful induction of general anesthesia, pneumatic compression devices were placed on both lower extremities. An upper endoscopy was performed next. The oropharynx and esophagus appeared to be within normal limits. There was a diaphragmatic hernia present of moderate size consistent with the findings of the preoperative upper GI. The stomach was entered. Then after all fluid and air were suctioned and the stomach was fully decompressed, the scope was withdrawn and secured in the mid esophagus. The patient was then prepped and draped in the usual sterile manner, and abdominal access was established at the right upper quadrant with the Kaila technique. A 12 mm blunt port was inserted, and the abdomen was insufflated with CO2 to a pressure of 15 mmHg. Under direct visualization, additional ports were placed, specifically two 5 mm Versi-step ports to the left upper quadrant, and a 5 mm Versi-Step port to the right upper quadrant. 1% lidocaine plain was used to infiltrate all port sites as well as all fascia defects. Using the EndoClose suture passer device, I placed a #1 Polysorb tie across the falciform ligament in order to retract it up against the abdominal wall and prevent injury of the ligament with our instruments during the procedure. Following that, the patient was placed in a steep reverse Trendelenburg position. An additional 5 mm port was placed to the right flank for the Mediflex retractor that was used to retract the left lobe of the liver. The gastro-esophageal fat pad was opened with the ultrasonic device (Thunderbeat, Olympus) and the anterior esophagus and hiatus were exposed. The angle of His was opened with the ultrasonic device the fundus of the stomach from any diaphragmatic and splenic attachments. I then opened the gastrocolic ligament between the transverse colon and the greater curvature of the stomach with the ultrasonic device to enter the lesser sac and facilitate the ligation of the short gastric vessels. I started at a mid-point along the greater curvature and using the Thunderbeat, all short gastric vessels were divided all the way to the angle of His until the left twyla was completely dissected at its entirety. I then divided the gastro-colic ligament distally to a distance of about 3-4 cm proximal to the esophagus. The stomach was then divided transversely with one Endo VAMSHI-45 purple, and four VAMSHI-60 articulating orange loads using the AEON stapler and loads. Every effort was made that the gastric sleeve had a tubular shape and an even caliber throughout. Once the sleeve resection was completed, the staple line of the gastric sleeve was reinforced with Hemoclips. The resected stomach was retrieved without difficulty from the Kaila port. A gastropexy was then performed in order to prevent postoperative GERD and partial gastric volvulus. Several interrupted 2.0 Surgidac sutures were placed between the sleeve's staple line and the previously divided greater omentum and gastro-colic ligament using the Endo-Stitch device. ?An upper endoscopy was performed. There was no narrowing at the GE junction. T he scope was easily advanced all the way to the pylorus which was clearly visualized. There was no narrowing anywhere and the sleeve's caliber was even throughout. The sleeve's staple line was inspected and there was no evidence of ischemia, bleeding or dehiscence. At that point the gastroscope was withdrawn from the patient?s mouth while we were decompressing the bowel and the stomach from any remaining air. I looked into the lesser sac to see how the sleeve was situating and it was situating well. There was no bleeding from the staple line, spleen, or short gastric vessels. The Mediflex retractor was removed, and the undersurface of the liver was inspected and there was no bleeding. The patient was placed in supine position. I closed the fascial defect of the 12 mm port site with a figure of eight #1 Polysorb suture. Then 100 cc 0.25 % Marcaine plain with 10 mg of Dexamethasone were used to infiltrate the fascial closure as well as all skin incisions. At this point, the abdomen was deflated, all ports were removed under direct vision, and no bleeding was noted from any of the port sites. The skin incisions were irrigated with saline and were closed with 4-0 absorbable monofilament sutures. Steri-Strips and OpSites were used to cover all incisions. The patient was extubated and was transferred in stable condition to the recovery room for further care. I was present and performed all ag parts of the procedure. Ms. Guan was the journeyman operator assistant. There were no residents to assist with this case. Edgar Bird MD, PhD, FACS Surgeon: Ruben Bird MD Anesthesia: GETA, local and other (TAP block) Was an [employer] used for this Procedure?: Yes [employer]: Darya Guan Estimated blood loss (mL): 10 IV fluids (mL): 3,500 Urine output (mL): 0 (no sullivan to gravity) Pathology: other (Stomach) Condition: stable Disposition: PACU
--- NOTE | 2021-09-03 17:28 | P.PNGS_ITS ---
Subjective Subjective Date of Service: 09/04/21 Interval history: Patient has mild incisional pain, but was able to ambulate and use the incentive spirometer. She is tolerating phase 1 bariatric diet Physical Exam Verdana 4l Vital Signs: Verdana 4d Verdana 4d Vital Signs: Verdana 4d Verdana 4Bd Last Vital Signs Verdana 4d Health Care Specialist New 4d Health Care Specialist New 4d Temp 97.2 F 09/03/21 15:30 Health Care Specialist New 4d Pulse 109 H 09/03/21 15:30 Health Care Specialist New 4d Resp 16 09/03/21 15:30 BP 138/98 H 09/03/21 15:30 Pulse Ox 98 09/03/21 15:30 BMI result Body Mass Index 46.1 GI: Inspection: Yes normal to inspection, Yes incision (clean, dry and intact) and Yes obesity Extrem: Right lower extremity: normal to inspection (no calf tenderness) Left lower extremity: normal to inspection (no calf tenderness) Objective Data Active Medications Famotidine (Famotidine/Pf 20 Mg/2 Ml Vial) 20 mg IVPUSH BID [facility] Last Admin: 09/03/21 12: Dose: 20 mg Documented by: MARITZA Hydromorphone HCl (Hydromorphone Hcl 0.5 Mg/0.5 Ml Syringe) 0.5 mg IVPUSH Q5M PRN; Protocol PRN Reason: Pain, Severe (Pain Scale 7-10) Hydromorphone HCl (Hydromorphone Hcl 1 Mg/Ml Syringe) 0.25 mg IVPUSH Q4H PRN; Protocol PRN Reason: Pain, Moderate (Pain Scale 4-6 Promethazine HCl 12.5 mg/ (Sodium Chloride) 50.5 mls @ 202 mls/hr IV ONCE PRN PRN Reason: Nausea and Vomiting Lactated Ringer's (Lr) 1,000 mls @ 100 mls/hr IVCONT .Q10H [facility] Last Admin: 09/03/21 12: Dose: 100 mls/hr Documented by: MARITZA Acetaminophen (Ofirmev) 1,000 mg in 100 mls @ 16.7 mls/hr IV .Q6H [facility] Last Admin: 09/03/21 12: Dose: 16.7 mls/hr Documented by: MARITZA Metoclopramide HCl (Metoclopramide Hcl 10 Mg/2 Ml Vial) 10 mg IVPUSH Q6H PRN PRN Reason: Nausea Metoprolol Succinate (Metoprolol Succinate Er 25 Mg Tab.Er.24h) 25 mg PO DAILY [facility]; Protocol Ondansetron HCl (Ondansetron Hcl 4 Mg/2 Ml Vial) 4 mg IVPUSH Q8H [facility] Last Admin: 09/03/21 12:26 Dose: 4 mg Documented by: MARITZA Sodium Chloride (0.9 % Sodium Chloride Flush 3 Ml Syringe) 3 ml IVFLUSH QSHIFT [facility] Last Admin: 09/03/21 13:14 Dose: Not Given Documented by: MARITZA Non-Admin Reason: IV Running Labs CBC & Chem 7: 09/04/21 05:13 09/04/21 05:13 Labs: Laboratory Results - last 24 hr 09/03/21 09/03/21 07:20 11:50 Anion Gap 22 H Estim Creat Clear Calc 151.0 Estimated GFR > 60 POC Glucose 84 Random Glucose 183 H Calcium 9.5 Procedures Date of Service Date of Service: 09/04/21 Progress Note: A&P Assessment and plan (1) Morbid obesity: Status: Acute Assessment and Plan: s/p laparoscopic sleeve gastrectomy and gastropexy Doing well Check am labs. If OK, will discharge home? (2) S/P laparoscopic sleeve gastrectomy: Status: Acute (3) Insulin dependent type 2 diabetes mellitus: (4) Low left ventricular ejection fraction: (5) Cardiomyopathy: Status: Acute (6) Hypertension: Status: Acute (7) Steatosis, liver: Status: Acute Fall Risk Details Current Medications: Current Medications Famotidine (Famotidine/Pf 20 Mg/2 Ml Vial) 20 mg IVPUSH BID [facility] Last Admin: 09/03/21 12:26 Dose: 20 mg Documented by: Hydromorphone HCl (Hydromorphone Hcl 0.5 Mg/0.5 Ml Syringe) 0.5 mg IVPUSH Q5M PRN; Protocol PRN Reason: Pain, Severe (Pain Scale 7-10) Hydromorphone HCl (Hydromorphone Hcl 1 Mg/Ml Syringe) 0.25 mg IVPUSH Q4H PRN; Protocol PRN Reason: Pain, Moderate (Pain Scale 4-6 Promethazine HCl 12.5 mg/ (Sodium Chloride) 50.5 mls @ 202 mls/hr IV ONCE PRN PRN Reason: Nausea and Vomiting Lactated Ringer's (Lr) 1,000 mls @ 100 mls/hr IVCONT .Q10H [facility] Last Admin: 09/03/21 12:26 Dose: 100 mls/hr Documented by: Acetaminophen (Ofirmev) 1,000 mg in 100 mls @ 16.7 mls/hr IV .Q6H [facility] Last Admin: 09/03/21 12:27 Dose: 16.7 mls/hr Documented by: Metoclopramide HCl (Metoclopramide Hcl 10 Mg/2 Ml Vial) 10 mg IVPUSH Q6H PRN PRN Reason: Nausea Metoprolol Succinate (Metoprolol Succinate Er 25 Mg Tab.Er.24h) 25 mg PO DAILY [facility]; Protocol Ondansetron HCl (Ondansetron Hcl 4 Mg/2 Ml Vial) 4 mg IVPUSH Q8H [facility] Last Admin: 09/03/21 12:26 Dose: 4 mg Documented by: Sodium Chloride (0.9 % Sodium Chloride Flush 3 Ml Syringe) 3 ml IVFLUSH QSHIFT [facility] Last Admin: 09/03/21 13:14 Dose: Not Given Documented by: Time Spent With Patient Time: Total time spent is greater than 50% in coordination of care (as documented) at patient's floor/unit and/or counseling patient: Time with patient: less than 15 minutes Quality Stroke Does the patient have a stroke diagnosis?: No VTE Prior VTE?: No VTE Risk Level:: Surgical - moderate VTE Device Contraindication: N/A - Device Ordered VTE Drug Contraindication: Treatment Not Indicated
[2021-09-03] MEDS: 0.9 % Sodium Chloride Flush 3 ML SYRINGE IVFLUSH (19:15)
[2021-09-04] VITALS: BP 133/72; PULSE 105; RESP 18; TEMP 36.2; O2SAT 99
[2021-09-04 03:56] VITALS: BP 126/66; PULSE 103; RESP 18; TEMP 36.6; O2SAT 98
[2021-09-04] MEDS: ondansetron HCL 4 MG/2 ML VIAL IVPUSH (04:17)
[2021-09-04 05:43] LABS: MANUAL DIFF FLAG NO
[2021-09-04 05:46] LABS: Basophils Percent Auto 0.1 % (0-2); Hematocrit 36.4 % (37.0-47.0); Hemoglobin 12.4 g/dl (12.0-16.0); Imm Gran Abs Auto 0.04 X10*3/uL (0.00-0.03); Imm Gran Pct Auto 0.4 % (0.0-0.4); Lymphocytes Absolute Auto 1.5 X10*3/uL (1.2-4.9); Lymphocytes Percent Auto 13.2 % (20-40); Mean Corpuscular HGB Conc 34.1 g/dl (31.0-35.0); Mean Corpuscular Hemoglobin 28.3 pg (27.0-33.0); Mean Corpuscular Volume 83.1 fL (80.0-98.0); Monocytes Absolute Auto 0.7 X10*3/uL (0.1-1.2); Monocytes Percent Auto 5.9 % (2-11); Neutrophils Absolute Auto 8.9 x10*3/uL (2.0-8.3); Neutrophils Percent Auto 80.4 % (45-73); Platelet Count 273 X10*3/uL (160-400); Red Blood Count 4.38 X10*6/uL (4.20-5.50); Red Cell Distribution Width 13.4 % (11.0-16.0); White Blood Count 11.1 X10*3/uL (4.8-10.8)
[2021-09-04] MEDS: Lactated Ringers 1,000 ML 100 ML IVCONT (06:25)
[2021-09-04 06:29] LABS: Anion Gap 19 (12-20); Blood Urea Nitrogen 3 mg/dL (9-16); Calcium 9.4 mg/dL (8.4-10.2); Carbon Dioxide 15 mmol/L (22-29); Chloride 107 mmol/L (96-108); Creatinine Clr Calc Pharmacy 164.3; Estimated Glomerular Filt Rate > 60; Glucose Random 113 mg/dL (60-115); Sodium 137 mmol/L (135-145)
--- NOTE | 2021-09-04 07:00 | HO.POSTANES ---
Post Anesthesia Evaluation Post Anesthesia Evaluation Vital Signs: Vital Signs Temp Pulse Resp BP Pulse Ox 09/04/21 03:56 97.9 F 103 H 18 126/66 98 09/04/21 00:00 97.2 F 105 H 18 133/72 99 09/03/21 19:34 97.6 F 111 H 18 135/74 99 Anesthesia: General Endotracheal-GETA Mental Status: Awake Pain Control: Satisfactory Nausea/Vomiting: None Hydration: Adequate Anesthesia-Related Issues: No Anes. Related Issues
--- NOTE | 2021-09-04 07:00 | PHA.MEDREC ---
Pharmacy Consult ? Medication Reconciliation Pharmacy has reviewed the medication reconciliation. Unverifed medications are for post-op. Odilia Acosta, MegD
[2021-09-04] MEDS: Famotidine/PF 20 MG/2 ML VIAL IVPUSH (07:07)
[2021-09-04 08:00] VITALS: BP 142/90; PULSE 85; RESP 18; TEMP 36.2; O2SAT 98
[2021-09-04] MEDS: Metoprolol Succinate ER 25 MG TAB.ER.24H PO (08:32)
== END 2021-09-04 10:40 | disposition home or self-care (01) | DRG 403 ==
LOC: HO.SSSA 06:45 → HO.S3 10:40
PROVIDERS: Physician Assistant; Physician Assistant Surgical; Admitting Provider Surgery; PCP Internal Medicine; Visit Provider Surgery
PROC: 0DB64Z3 Excision of Stomach, Percutaneous Endoscopic Approach, Vertical (ICD-10-PCS; CPT 43845; principal; 2021-09-03 10:20)
DX: E66.01 Morbid (severe) obesity due to excess calories (principal); I42.9 Cardiomyopathy, unspecified; K74.00 Hepatic fibrosis, unspecified; K76.0 Fatty (change of) liver, not elsewhere classified; E11.9 Type 2 diabetes mellitus without complications; G47.33 Obstructive sleep apnea (adult) (pediatric); Z68.42 Body mass index [BMI] 45.0-49.9, adult; Z20.822 Contact with and (suspected) exposure to COVID-19; Z79.899 Other long term (current) drug therapy
CPT/HCPCS: 36415; 80048; 80053; 80061; 82947; 83036; 83525; 84443; 85014; 85018; 85025; 85610; 85730; 86140; 86850; 86900; 86901; 87635; 88307; 88342; 99024; A4649; J0131; J0690; J1100; J1170; J2250; J2405; J3010

== ENCOUNTER → 2021-09-10 08:33 | Outpatient (BNVA) | payer MEDICAID, SELFPAY | PROVIDERS: PCP Internal Medicine; Referring Provider Internal Medicine; Visit Provider Surgery | DX: E66.01 Morbid (severe) obesity due to excess calories (principal); Z98.84 Bariatric surgery status; Z68.41 Body mass index [BMI] 40.0-44.9, adult | CPT/HCPCS: 99212 ==

== ENCOUNTER → 2021-09-24 10:30 | Outpatient (BNVA) | payer MEDICAID, SELFPAY | PROVIDERS: PCP Internal Medicine; Referring Provider Internal Medicine; Visit Provider Physician Assistant Surgical ==

== ENCOUNTER 2021-09-24 11:41 | Inpatient (IN) | payer MEDICAID, SELFPAY ==
--- NOTE | ~2021-09-24 | CT_ITS ---
EXAMINATION: CT ABDOMEN AND PELVIS WITH CONTRAST CLINICAL INFORMATION: Post laparoscopic sleeve gastrectomy. Nausea and vomiting. Evaluate for obstruction. COMPARISON: Abdominal ultrasound March 2021 TECHNIQUE: Multidetector volumetric images were obtained from the superior aspect of the liver through the pubic symphysis following administration 85 mL of Omnipaque 350 intravenous contrast. Sagittal and coronal reformatted images were obtained on the technologist's workstation. Oral contrast: Yes This CT examination was performed using dose optimization techniques as appropriate, variously including the following: *Automated exposure control *Adjustment of mA and/or kV according to patient size (this includes techniques or standardized protocols for targeted exams where dose is matched to indication/reason for exam; i.e. extremities or head) *Use of iterative reconstruction technique DLP: 969 mGy-cm FINDINGS: LUNG BASES: The visualized lung bases are unremarkable. LIVER, GALLBLADDER, AND BILIARY TREE: There is low-attenuation in the left lobe of the liver adjacent to the falciform ligament. This is slightly more prominent than is normally seen with vascular changes or fatty infiltration. The liver is otherwise unremarkable. The gallbladder is unremarkable. The gallbladder is unremarkable with no evidence of radiopaque gallstones, gallbladder wall thickening, or obvious pericholecystic inflammatory changes. PANCREAS: There is fatty infiltration of the pancreas. Pancreas is otherwise unremarkable. SPLEEN: Unremarkable. ADRENAL GLANDS: Unremarkable. KIDNEYS AND URETERS: The kidneys are normal in size, shape, and attenuation. No hydronephrosis, hydroureter, or calculi seen. No perinephric stranding. BLADDER: Not optimally distended. GASTROINTESTINAL TRACT: The small and large bowel are unremarkable. The appendix is unremarkable. There are postsurgical changes from gastric sleeve procedure. No evidence of obstruction is seen. No extraluminal air or fluid is seen to suggest leak. ABDOMINAL WALL: There are postsurgical changes. No hernia is seen. LYMPH NODES: Normal. VASCULAR: Unremarkable. PELVIC VISCERA: Unremarkable. OSSEOUS STRUCTURES: Unremarkable. CT/CT abdomen pelvis w con IMPRESSION: No acute findings. Post surgical changes from gastric sleeve procedure. No evidence of obstruction or leak is seen. Fatty infiltration of the pancreas. Fleischner guidelines were followed.
--- NOTE | 2021-09-24 12:19 | ED.NAVMDI ---
HPI - Nausea/Vomiting/Diarrhea General Chief complaint: Nausea/Vomiting/Diarrhea Stated complaint: dehydration Time Seen by Provider: 09/24/21 11:56 Source: patient and other (Expect note from bariatric medicine physician assistant elementary teacher Ant Hanson) Mode of arrival: ambulatory Limitations: no limitations History of Present Illness HPI Narrative: 26-year-old female who was sent to the emergency department from the bariatric clinic for evaluation nausea and vomiting since 09/20/2021 (5 days). The patient is S/P laparoscopic sleeve gastrectomy on 09/03/2021. The patient states she felt fine after the surgery and had no abdominal or other symptoms. She states that 5 days prior to evaluation she began vomiting. She states that she has been vomiting more than 10 times a day. She states she has not been able to eat food and seems to vomit immediately after eating. She states that she has been able to drink only very small sips of water but this also makes her vomit. She denied abdominal pain. She has not noted any abdominal distension. She denied fever, chills, chest pain or shortness of breath. She states that she has been urinating frequently and has some slight dysuria. She states that she has not had a bowel movement since the surgery. I did get a call from the bariatric Physician assistant elementary teacher, Ant Hanson and we discussed the workup. The patient will get a CT scan of the abdomen pelvis with contrast IV and oral, CBC, CMP, lipase, serum beta-hCG, urinalysis and COVID-19 test. Patient will be treated with normal saline IV times 3 L. she will receive 1 L with alignment 100 mg and folate 1 g IV. She will also be treated vitamin B12 1000 mg IM. Patient's nausea was treated with Zofran 4 mg IV. MD elicited complaint: nausea and vomiting Pertinent past history: other (S/P laparoscopic sleeve gastrectomy since 09/03/2021 (3 weeks)) Onset (ago): day(s) (5) Description of vomiting: food contents and watery Associated nausea: Yes Associated abdominal pain: No Exacerbating factors: eating Relieving factors: none Associated symptoms: other (Dysuria) Related Data Previous Rx's Medication Instructions Recorded blood-glucose meter (Blood Glucose #1 ea 06/18/21 Monitoring) metoprolol succinate 25 mg 25 mg PO DAILY #30 tab 07/23/21 tablet,extended release 24 hr (Toprol XL) ondansetron HCl 4 mg tablet 4 mg PO Q12H #20 tab 08/27/21 pantoprazole 40 mg tablet,delayed 40 mg PO DAILY #30 tab 08/27/21 release sucralfate 100 mg/mL oral 10 ml PO BID #400 ml 08/27/21 suspension ondansetron HCl 4 mg tablet 4 mg PO Q12H #30 tab 09/23/21 Allergies Allergy/AdvReac Type Severity Reaction Status Date / Time No Known Allergies Allergy Verified 09/10/21 08:40 [No Known Allergies*] Review of Systems Review of Systems: Yes all other systems are reviewed and are negative Gastrointestinal: Gastrointestinal: Reports nausea PMFSH Past Medical History Medical History Abnormal ECG Hypertension Insulin dependent type 2 diabetes mellitus Low left ventricular ejection fraction MDD (major depressive disorder), recurrent episode, moderate MARCIA (obstructive sleep apnea) Preop cardiovascular exam Steatosis, liver Surgical History No significant past surgical history S/P laparoscopic sleeve gastrectomy Family History Family History Mother Bipolar 1 disorder Father Heart disease Brother No problems noted. Brother No problems noted. Sister No problems noted. Social History Social History Household Members Other:: mother Are you a primary care trainer to a significant other at home: No Do you presently have visiting nurse or other home services: No Alcohol intake: never Patient Tobacco Use Status: Never used Tobacco Smoked in Last 30 Days: No Advance Directives: No Advance Directives Information Provided: Yes Patient : No service: No Physical Exam Vital Signs: Vital Signs: Last Vital Signs Temp 98.3 F 09/24/21 12:26 Pulse 112 H 09/24/21 15:31 Resp 20 09/24/21 15:31 BP 146/83 H 09/24/21 15:31 Pulse Ox 99 09/24/21 15:31 BMI result Body Mass Index 41.8 Const: Other: Awake, alert, female patient, pleasant, cooperative, answers all questions appropriately, patient had several episodes of dry heaving with no emesis while I was there in the room talking to her. HENMT: Head: Yes normal to inspection, Yes normocephalic and Yes atraumatic Ears: external ears normal General nose exam: Normal external nose present Face and sinus: Yes normal facial exam Mouth: Normal oral and palatal mucosa present Throat: Yes posterior oropharynx normal Eyes: General: appearance normal, both eyes and all related structures Pupils: Equal, round and reactive pupils present Neck: Neck: Yes normal visual inspection, Yes no lymphadenopathy, Yes trachea midline and Yes supple Chest: Chest palpation & inspection: normal inspection of the chest and normal palpation of entire chest wall Resp: Effort & Inspection: normal respiratory effort and able to speak in complete sentences Auscultation: clear to auscultation bilaterally Cardio: Rate: regular rate Rhythm: regular rhythm Heart sounds: S1 normal heart sound present, S2 normal heart sound present and no murmurs GI: Inspection: Yes normal to inspection Palpation (GI): Soft to palpation, nontender and no guarding Auscultation: normal bowel sounds : General: Yes no CVA tenderness Back/Spine/Pelvis: Back: no CVA tenderness Skin: General skin exam: no rashes or lesions noted Neuro: Cranial nerves: Yes CN's II-XII intact bilaterally and Yes Equal, round and reactive pupils present Cognition (Neuro): normal cognition Motor exam (neuro): 5/5 motor strength present throughout Extrem: General: Yes normal to inspection Psych: Appearance: grossly normal Speech and movement: Normal speech and movement present Affect: normal affect Attitude: cooperative Thought process: Normal thought process present Thought content: Normal thought content present Course Course Course Narrative: 26-year-old female who is 3 weeks S/P laparoscopic sleeve gastrectomy who presents emergency department for evaluation of 5 days of nausea, vomiting with no abdominal pain and no perceived abdominal distension. Patient states however she has not had a bowel movement since the bariatric surgery. Physical examination revealed normal bowel sounds and no abdominal tenderness. Laboratory evaluation was ordered. Patient will receive normal saline with time and and folate x1 L and 2 more Liters of normal saline. She also received Zofran 4 mg IV and vitamin B12 1000 mg IM. 1526: Laboratory evaluation: He elevated sodium 146, low bicarb of 19, elevated AST and ALT of 57 and 146, elevated alk-phos of 139. Lactate was normal 1.8. CT scan of the abdomen pelvis with IV and oral contrast did not reveal any acute findings. The patient is feeling better after receiving her IV fluids and Zofran. I did discuss the patient with the Bariatric Medicine physician insistent, Ant Hanson and he states that he will come to the emergency department talk to the patient. 1547: The patient was seen by the physician assistant elementary teacher, Ant Hanson. He was concerned that the patient would continued to vomit if the patient was discharged therefore the patient will be admitted for IV fluids and antiemetics overnight. MDM - Nausea/Vomiting/Diarrhea Lab Data Result diagrams: 09/24/21 12:24 09/24/21 12:24 Labs: Lab Results 09/24/21 09/24/21 09/24/21 Range/Units 12:24 12:24 12:24 WBC 10.9 H (4.8-10.8) X10*3/uL RBC 5.68 H D (4.20-5.50) X10*6/uL Hgb 16.2 H D (12.0-16.0) g/dl Hct 46.3 D (37.0-47.0) % MCV 81.5 (80.0-98.0) fL MCH 28.5 (27.0-33.0) pg MCHC 35.0 (31.0-35.0) g/dl RDW 14.3 (11.0-16.0) % Plt Count 285 (160-400) X10*3/uL MPV 12.9 H (9.4-12.3) fL Immature Gran % (Auto) 0.5 H (0.0-0.4) % Neut % (Auto) 87.5 H (45-73) % Lymph % (Auto) 7.4 L (20-40) % Towner % (Auto) 4.3 (2-11) % Eos % (Auto) 0.0 (0-4) % Baso % (Auto) 0.3 (0-2) % Lymph # (Auto) 0.8 L (1.2-4.9) X10*3/uL Towner # (Auto) 0.5 (0.1-1.2) X10*3/uL Eos # (Auto) 0.0 (0.0-0.4) X10*3/uL Baso # (Auto) 0.0 (0.0-0.2) X10*3/uL Abs Immat Gran (auto) 0.05 H (0.00-0.03) X10*3/uL Absolute Neuts (auto) 9.5 H (2.0-8.3) x10*3/uL Absolute Nucleated RBC 0.000 (0.0-0.012) X10*3/uL Nucleated RBC % (auto) 0.0 (0.0-0.2) /100WBC Sodium 146 H (135-145) mmol/L Potassium 3.7 (3.3-5.1) mmol/L Chloride 105 (96-108) mmol/L Carbon Dioxide 19 L (22-29) mmol/L Anion Gap 26 H (12-20) BUN 13 D (9-16) mg/dL Creatinine 1.20 (0.5-1.4) mg/dL Estim Creat Clear Calc 87.1 Estimated GFR 55 Random Glucose 222 H (60-115) mg/dL Lactic Acid (0.5-2.0) mmol/L Calcium 10.8 H D (8.4-10.2) mg/dL Total Bilirubin 2.4 H (0.0-1.0) mg/dL AST 57 H (5-31) U/L ALT 146 H (0-31) U/L Alkaline Phosphatase 139 H D (39-117) U/L Total Protein 7.8 (6.5-8.0) g/dL Albumin 4.7 (3.5-5.0) g/dL Lipase 10 (8-78) U/L Beta HCG, Quant mIU/mL COVID-19 (DANIA) Negative (Negative) COVID-19 Clin Com See Note 09/24/21 09/24/21 Range/Units 12:24 12:24 WBC (4.8-10.8) X10*3/uL RBC (4.20-5.50) X10*6/uL Hgb (12.0-16.0) g/dl Hct (37.0-47.0) % MCV (80.0-98.0) fL MCH (27.0-33.0) pg MCHC (31.0-35.0) g/dl RDW (11.0-16.0) % Plt Count (160-400) X10*3/uL MPV (9.4-12.3) fL Immature Gran % (Auto) (0.0-0.4) % Neut % (Auto) (45-73) % Lymph % (Auto) (20-40) % Towner % (Auto) (2-11) % Eos % (Auto) (0-4) % Baso % (Auto) (0-2) % Lymph # (Auto) (1.2-4.9) X10*3/uL Towner # (Auto) (0.1-1.2) X10*3/uL Eos # (Auto) (0.0-0.4) X10*3/uL Baso # (Auto) (0.0-0.2) X10*3/uL Abs Immat Gran (auto) (0.00-0.03) X10*3/uL Absolute Neuts (auto) (2.0-8.3) x10*3/uL Absolute Nucleated RBC (0.0-0.012) X10*3/uL Nucleated RBC % (auto) (0.0-0.2) /100WBC Sodium (135-145) mmol/L Potassium (3.3-5.1) mmol/L Chloride (96-108) mmol/L Carbon Dioxide (22-29) mmol/L Anion Gap (12-20) BUN (9-16) mg/dL Creatinine (0.5-1.4) mg/dL Estim Creat Clear Calc Estimated GFR Random Glucose (60-115) mg/dL Lactic Acid 1.8 (0.5-2.0) mmol/L Calcium (8.4-10.2) mg/dL Total Bilirubin (0.0-1.0) mg/dL AST (5-31) U/L ALT (0-31) U/L Alkaline Phosphatase (39-117) U/L Total Protein (6.5-8.0) g/dL Albumin (3.5-5.0) g/dL Lipase (8-78) U/L Beta HCG, Quant < 2 mIU/mL COVID-19 (DANIA) (Negative) COVID-19 Clin Com Discharge Plan Discharge Patient Disposition: Admitted As Inpatient Prescriptions: No Action ondansetron HCl 4 mg tablet 4 mg PO Q12H Qty: 30 0RF (DME) blood-glucose meter [Blood Glucose Monitoring] Kit See Rx Instructions .Route Qty: 1 0RF Rx Instructions: As directed metoprolol succinate [Toprol XL] 25 mg tablet extended release 24 hr 25 mg PO DAILY Qty: 30 3RF pantoprazole 40 mg tablet,delayed release (DR/EC) 40 mg PO DAILY Qty: 30 2RF sucralfate 100 mg/mL suspension 10 ml PO BID Qty: 400 2RF ondansetron HCl 4 mg tablet 4 mg PO Q12H Qty: 20 0RF
[2021-09-24 12:26] VITALS: BP 146/89; PULSE 118; RESP 20; TEMP 36.8; O2SAT 98; BMI 41.8
[2021-09-24 12:29] LABS: MANUAL DIFF FLAG NO
[2021-09-24 12:30] LABS: Basophils Percent Auto 0.3 % (0-2); Hematocrit 46.3 % (37.0-47.0); Hemoglobin 16.2 g/dl (12.0-16.0); Imm Gran Abs Auto 0.05 X10*3/uL (0.00-0.03); Imm Gran Pct Auto 0.5 % (0.0-0.4); Lymphocytes Absolute Auto 0.8 X10*3/uL (1.2-4.9); Lymphocytes Percent Auto 7.4 % (20-40); Mean Corpuscular Hemoglobin 28.5 pg (27.0-33.0); Mean Corpuscular Volume 81.5 fL (80.0-98.0); Mean Platelet Volume 12.9 fL (9.4-12.3); Monocytes Absolute Auto 0.5 X10*3/uL (0.1-1.2); Monocytes Percent Auto 4.3 % (2-11); Neutrophils Absolute Auto 9.5 x10*3/uL (2.0-8.3); Neutrophils Percent Auto 87.5 % (45-73); Platelet Count 285 X10*3/uL (160-400); Red Blood Count 5.68 X10*6/uL (4.20-5.50); Red Cell Distribution Width 14.3 % (11.0-16.0); White Blood Count 10.9 X10*3/uL (4.8-10.8)
[2021-09-24 12:43] LABS: Lactic Acid 1.8 mmol/L (0.5-2.0)
[2021-09-24 12:55] LABS: COVID-19 Test Negative (Negative); HCG Quantitative < 2 mIU/mL
[2021-09-24 13:06] LABS: Alanine Aminotransferase 146 U/L (0-31); Albumin Level 4.7 g/dL (3.5-5.0); Alkaline Phosphatase 139 U/L (39-117); Anion Gap 26 (12-20); Aspartate Amino Transferase 57 U/L (5-31); Blood Urea Nitrogen 13 mg/dL (9-16); Calcium 10.8 mg/dL (8.4-10.2); Carbon Dioxide 19 mmol/L (22-29); Chloride 105 mmol/L (96-108); Creatinine Clr Calc Pharmacy 87.1; Estimated Glomerular Filt Rate 55; Glucose Random 222 mg/dL (60-115); Lipase 10 U/L (8-78); Potassium 3.7 mmol/L (3.3-5.1); Sodium 146 mmol/L (135-145); Total Protein 7.8 g/dL (6.5-8.0)
[2021-09-24 13:14] LABS: Bilirubin Total 2.4 mg/dL (0.0-1.0)
[2021-09-24] MEDS: Folic Acid 1 MG in 0.9 % Sodium Chloride 50 ML 100.4 MG IV (13:19)
[2021-09-24] MEDS: iohexoL 350 MG/ML 100 ML INFUS..BTL IV (13:50)
[2021-09-24] MEDS: ondansetron HCL 4 MG/2 ML VIAL IVPUSH (13:58)
[2021-09-24] MEDS: Thiamine HCL 100 MG in 0.9 % Sodium Chloride 100 ML 202 MG IV (13:59)
--- NOTE | 2021-09-24 15:07 | PC.NURSE ---
awaiting pharmacy for vitamin b12
[2021-09-24] MEDS: Cyanocobalamin (Vitamin B-12) 1,000 MCG/ML VIAL 1000 MCG IM (15:29)
[2021-09-24 15:31] VITALS: BP 146/83; PULSE 112; RESP 20; O2SAT 99
--- NOTE | 2021-09-24 16:17 | P.HPGS_ITS ---
History of Present Illness History of Present Illness Date of Service: 09/24/21 Chief complaint: dehydration Narrative: Yulia Ryan is a 26 year old female who underwent LSG by Dr Bird on 09/03/21. The procedure was uneventful and she was doing well until this past Wednesday. She reported she went to [facility] with her mother, bought water and then began to not feel well. She reports persistent vomiting since then and a general intolerance to fluids although was able to drink 26 oz yesterday. Given her continued vomiting she was asked to come into the office to be seen. In the office she was visibly anxious and appeared dry. Her vitals reflected sinus tachycardia and after discussing with Dr Bird, she was sent to the ED for further evaluation, labs and diagnostic imaging. In the ED, w/u revealed hypernatremia and slight elevation in bilirubin and LFTs. Mild leukocytosis and mild renal insufficiency consistent with dehydration. Abdominal CT scan was negative for acute pathology. She was given 3 liters of IVF including MVI, thiamine, folic acid and IM B12. After intervention, she stated she felt a little better but given no significant improvement, decision is to admit overnight for continued IV hydration and monitoring. Review of Systems Review of Systems: Yes all other systems are reviewed and are negative PMFSH Past Medical History Medical History Abnormal ECG Hypertension Insulin dependent type 2 diabetes mellitus Low left ventricular ejection fraction MDD (major depressive disorder), recurrent episode, moderate MARCIA (obstructive sleep apnea) Preop cardiovascular exam Steatosis, liver Family History Family History Mother Bipolar 1 disorder Father Heart disease Brother No problems noted. Brother No problems noted. Sister No problems noted. Surgical History Surgical History No significant past surgical history S/P laparoscopic sleeve gastrectomy Social History Social History Household Members Other:: mother Are you a primary field care coordinator to a significant other at home: No Do you presently have visiting nurse or other home services: No Alcohol intake: never Patient Tobacco Use Status: Never used Tobacco Smoked in Last 30 Days: No Advance Directives: No Advance Directives Information Provided: Yes Patient : No service: No Meds Allergies Allergy/AdvReac Type Severity Reaction Status Date / Time No Known Allergies Allergy Verified 09/10/21 08:40 [No Known Allergies*] Active Medications: Current Medications Bisacodyl (Bisacodyl 10 Mg Supp.Rect) 10 mg VA ONCE ONE Stop: 09/24/21 16:12 Famotidine (Famotidine/Pf 20 Mg/2 Ml Vial) 20 mg IVPUSH BID SAGE Dextrose/Sodium Chloride (D5ns) 1,000 mls @ 200 mls/hr IVCONT .Q5H SAGE Lorazepam (Lorazepam 2 Mg/Ml Vial) 0.5 mg IVPUSH Q8H PRN PRN Reason: anxiety/restlessness Ondansetron HCl (Ondansetron Hcl 4 Mg/2 Ml Vial) 4 mg IVPUSH Q8H PRN PRN Reason: Nausea Sodium Chloride (0.9 % Sodium Chloride Flush 3 Ml Syringe) 3 ml IVFLUSH QSHIFT SAGE Physical Exam Vital Signs: Vital Signs: Last Vital Signs Temp 98.3 F 09/24/21 12:26 Pulse 112 H 09/24/21 15:31 Resp 20 09/24/21 15:31 BP 146/83 H 09/24/21 15:31 Pulse Ox 99 09/24/21 15:31 BMI result Body Mass Index 41.8 Results Results Labs: Short CBC 09/24/21 Range/Units 12:24 WBC 10.9 H (4.8-10.8) X10*3/uL Hgb 16.2 H D (12.0-16.0) g/dl Hct 46.3 D (37.0-47.0) % Plt Count 285 (160-400) X10*3/uL BMP 09/24/21 12:24 Sodium 146 H Potassium 3.7 Chloride 105 Carbon Dioxide 19 L BUN 13 D Creatinine 1.20 Calcium 10.8 H D Liver Function 09/24/21 Range/Units 12:24 Total Bilirubin 2.4 H (0.0-1.0) mg/dL AST 57 H (5-31) U/L ALT 146 H (0-31) U/L Alkaline Phosphatase 139 H D (39-117) U/L Albumin 4.7 (3.5-5.0) g/dL Abdomen CT scan report/results: report reviewed (IMPRESSION: No acute findings. Post surgical changes from gastric sleeve procedure. No evidence of obstruction or leak is seen. Fatty infiltration of the pancreas) and image reviewed Assessment and Plan (1) Acute dehydration: Status: Acute Continue IVF D5NS at 200/hr, thiamine, folic acid and B12. Re-check labs in the morning. Bariatric phase 2 today and advance to phase 3 tomorrow. If all improved and tolerating PO then possibly dc home (2) Nausea & vomiting: Status: Acute add prn zofran and dulcolax 10 supp VA x 1, also prn lorazepam (3) S/P laparoscopic sleeve gastrectomy: Status: Acute LSG 09/03/21, no evidence of surgical complications, CT scan negative for pathology. Phase 2 today, phase 3 tomorrow if improved. Quality Stroke Does the patient have a stroke diagnosis?: No VTE Prior VTE?: No VTE Risk Level:: Medical - low VTE Device Contraindication: N/A - Device Ordered VTE Drug Contraindication: Treatment Not Indicated Procedures Date of Service Date of Service: 09/24/21
[2021-09-24] MEDS: bisacodyL 10 MG SUPP.RECT PR (16:52)
[2021-09-24] MEDS: Dextrose 5 % and 0.9 % NaCl 1,000 ML 200 ML IVCONT ×2 (16:54→23:09)
--- NOTE | 2021-09-24 16:56 | PHA.MEDREC ---
Pharmacy Consult ? Medication Reconciliation Pharmacy has completed the medication reconciliation. Pt was told to stop toprol
[2021-09-24 17:53] VITALS: BP 136/90; PULSE 113; RESP 18; TEMP 36.6; O2SAT 98
--- NOTE | 2021-09-24 19:23 | PC.NURSE ---
Assumed care of pt at 1900. Pt ambulatory to and from bathroom w/o assistance, in NAD. Awaiting report to transfer to inpatient room
--- NOTE | 2021-09-24 19:40 | PC.NURSE ---
Pt to floor via wc in stable condition w/ all belongings
[2021-09-24] MEDS: Famotidine/PF 20 MG/2 ML VIAL IVPUSH (19:48)
[2021-09-24 19:52] VITALS: BMI 40.8
[2021-09-24 20:00] VITALS: BP 140/102; PULSE 125; RESP 17; TEMP 36.3; O2SAT 99
[2021-09-24 23:33] VITALS: BP 108/55; PULSE 100; RESP 16; TEMP 36.4; O2SAT 97
[2021-09-25] VITALS (7 sets, daily range): BP systolic 120–147; BP diastolic 60–93; PULSE 67–109; RESP 14–20; TEMP 35.7–37.1; O2SAT 95–100
[2021-09-25] MEDS: Dextrose 5 % and 0.9 % NaCl 1,000 ML 200 ML IVCONT ×5 (04:05→23:27)
[2021-09-25 05:57] LABS: MANUAL DIFF FLAG NO
[2021-09-25 06:06] LABS: Basophils Percent Auto 0.4 % (0-2); Hematocrit 40.3 % (37.0-47.0); Hemoglobin 13.9 g/dl (12.0-16.0); Imm Gran Abs Auto 0.03 X10*3/uL (0.00-0.03); Imm Gran Pct Auto 0.4 % (0.0-0.4); Lymphocytes Absolute Auto 1.7 X10*3/uL (1.2-4.9); Lymphocytes Percent Auto 21.1 % (20-40); Mean Corpuscular HGB Conc 34.5 g/dl (31.0-35.0); Mean Corpuscular Hemoglobin 28.4 pg (27.0-33.0); Mean Corpuscular Volume 82.2 fL (80.0-98.0); Mean Platelet Volume 12.9 fL (9.4-12.3); Monocytes Absolute Auto 1.1 X10*3/uL (0.1-1.2); Monocytes Percent Auto 13.2 % (2-11); Neutrophils Absolute Auto 5.4 x10*3/uL (2.0-8.3); Neutrophils Percent Auto 64.9 % (45-73); Platelet Count 202 X10*3/uL (160-400); Red Cell Distribution Width 14.4 % (11.0-16.0); White Blood Count 8.3 X10*3/uL (4.8-10.8)
[2021-09-25 06:33] LABS: Anion Gap 17 (12-20); Blood Urea Nitrogen 13 mg/dL (9-16); Calcium 9.6 mg/dL (8.4-10.2); Carbon Dioxide 25 mmol/L (22-29); Chloride 107 mmol/L (96-108); Creatinine Clr Calc Pharmacy 108.6; Estimated Glomerular Filt Rate > 60; Glucose Random 188 mg/dL (60-115); Potassium 3.1 mmol/L (3.3-5.1); Sodium 146 mmol/L (135-145)
--- NOTE | 2021-09-25 08:00 | P.PNGS_ITS ---
Subjective Subjective Date of Service: 09/25/21 Interval history: Patient was admitted for what it appears to be an anxiety attack. Appears very anxious this morning also Denies any abdominal pain or nausea CT reviewed and it appears normal. No evidence of infection, fluid collection, stenosis or other pathology. Physical Exam Vital Signs: Vital Signs: Last Vital Signs Temp 97.3 F 09/25/21 07:40 Pulse 67 09/25/21 07:40 Resp 20 09/25/21 07:40 BP 147/60 H 09/25/21 07:40 Pulse Ox 99 09/25/21 03:48 BMI result Body Mass Index 40.8 GI: Inspection: Yes normal to inspection and Yes incision (well healed) Palpation (GI): Soft to palpation and Other GI palpation findings present (no tenderness) Extrem: Right lower extremity: normal to inspection (no calf tenderness) Left lower extremity: normal to inspection (no calf tenderness) Objective Data Active Medications Cyanocobalamin (Cyanocobalamin (Vitamin B-12) 1,000 Mcg/Ml Vial) 1,000 mcg IM ONCE ONE Stop: 09/25/21 08:30 Famotidine (Famotidine/Pf 20 Mg/2 Ml Vial) 20 mg IVPUSH BID [facility] Last Admin: 09/24/21 19:48 Dose: 20 mg Documented by: RHYS Dextrose/Sodium Chloride (D5ns) 1,000 mls @ 200 mls/hr IVCONT .Q5H [facility] Last Admin: 09/25/21 04:05 Dose: 200 mls/hr Documented by: RHYS Thiamine HCl 100 mg/ Sodium (Chloride) 101 mls @ 202 mls/hr IV DAILY [facility] Folic Acid 1 mg/ Sodium (Chloride) 50.2 mls @ 100.4 mls/hr IV DAILY [facility] Lorazepam (Lorazepam 2 Mg/Ml Vial) 0.5 mg IVPUSH Q8H PRN PRN Reason: anxiety/restlessness Ondansetron HCl (Ondansetron Hcl 4 Mg/2 Ml Vial) 4 mg IVPUSH Q8H PRN PRN Reason: Nausea Sodium Chloride (0.9 % Sodium Chloride Flush 3 Ml Syringe) 3 ml IVFLUSH QSHIFT [facility] Last Admin: 09/25/21 07:24 Dose: Not Given Documented by: ELENI Non-Admin Reason: IV Running Labs CBC & Chem 7: 09/25/21 05:37 09/25/21 05:37 Labs: Laboratory Results - last 24 hr 09/24/21 09/24/21 09/24/21 12:24 12:24 12:24 MCV 81.5 MCH 28.5 MCHC 35.0 RDW 14.3 Plt Count 285 MPV 12.9 H Immature Gran % (Auto) 0.5 H Neut % (Auto) 87.5 H Lymph % (Auto) 7.4 L [place] % (Auto) 4.3 Eos % (Auto) 0.0 Baso % (Auto) 0.3 Lymph # (Auto) 0.8 L [place] # (Auto) 0.5 Eos # (Auto) 0.0 Baso # (Auto) 0.0 Abs Immat Gran (auto) 0.05 H Absolute Neuts (auto) 9.5 H Absolute Nucleated RBC 0.000 Nucleated RBC % (auto) 0.0 Anion Gap 26 H Estim Creat Clear Calc 87.1 Estimated GFR 55 Random Glucose 222 H Lactic Acid Calcium 10.8 H D Total Bilirubin 2.4 H AST 57 H ALT 146 H Alkaline Phosphatase 139 H D Total Protein 7.8 Albumin 4.7 Lipase 10 Beta HCG, Quant COVID-19 ([facility]ANIA) Negative COVID-19 Clin Com See Note 09/24/21 09/24/21 09/25/21 12:24 12:24 05:37 MCV 82.2 MCH 28.4 MCHC 34.5 RDW 14.4 Plt Count 202 D MPV 12.9 H Immature Gran % (Auto) 0.4 Neut % (Auto) 64.9 Lymph % (Auto) 21.1 [place] % (Auto) 13.2 H Eos % (Auto) 0.0 Baso % (Auto) 0.4 Lymph # (Auto) 1.7 [place] # (Auto) 1.1 Eos # (Auto) 0.0 Baso # (Auto) 0.0 Abs Immat Gran (auto) 0.03 Absolute Neuts (auto) 5.4 Absolute Nucleated RBC 0.000 Nucleated RBC % (auto) 0.0 Anion Gap Estim Creat Clear Calc Estimated GFR Random Glucose Lactic Acid 1.8 Calcium Total Bilirubin AST ALT Alkaline Phosphatase Total Protein Albumin Lipase Beta HCG, Quant < 2 COVID-19 (DANIA) COVID-[facility] Clin Com 09/25/21 05:37 MCV MCH MCHC RDW Plt Count MPV Immature Gran % (Auto) Neut % (Auto) Lymph % (Auto) [place] % (Auto) Eos % (Auto) Baso % (Auto) Lymph # (Auto) [place] # (Auto) Eos # (Auto) Baso # (Auto) Abs Immat Gran (auto) Absolute Neuts (auto) Absolute Nucleated RBC Nucleated RBC % (auto) Anion Gap 17 Estim Creat Clear Calc 108.6 Estimated GFR > 60 Random Glucose 188 H Lactic Acid Calcium 9.6 D Total Bilirubin AST ALT Alkaline Phosphatase Total Protein Albumin Lipase Beta HCG, Quant COVID-19 (DANIA) COVID-19 Clin Com Procedures Date of Service Date of Service: 09/25/21 Progress Note: A&P Assessment and plan (1) S/P laparoscopic sleeve gastrectomy: Status: Acute Assessment and Plan: 1. Continue IV fluids and antiemetics 2. Encouraged her to start drinking more consistently 3. Advance to bariatric phase 3 4. Inpatient psychiatric evaluation (2) Nausea & vomiting: Status: Acute (3) Acute dehydration: Status: Acute (4) Sinus tachycardia: Status: Acute (5) Anxiety with limited-symptom attacks: Status: Acute Fall Risk Details Current Medications: Current Medications Cyanocobalamin (Cyanocobalamin (Vitamin B-12) 1,000 Mcg/Ml Vial) 1,000 mcg IM ONCE ONE Stop: 09/25/21 08:30 Famotidine (Famotidine/Pf 20 Mg/2 Ml Vial) 20 mg IVPUSH BID [facility] Last Admin: 09/24/21 19:48 Dose: 20 mg Documented by: Dextrose/Sodium Chloride (D5ns) 1,000 mls @ 200 mls/hr IVCONT .Q5H [facility] Last Admin: 09/25/21 04:05 Dose: 200 mls/hr Documented by: Thiamine HCl 100 mg/ Sodium (Chloride) 101 mls @ 202 mls/hr IV DAILY [facility] Folic Acid 1 mg/ Sodium (Chloride) 50.2 mls @ 100.4 mls/hr IV DAILY [facility] Lorazepam (Lorazepam 2 Mg/Ml Vial) 0.5 mg IVPUSH Q8H PRN PRN Reason: anxiety/restlessness Ondansetron HCl (Ondansetron Hcl 4 Mg/2 Ml Vial) 4 mg IVPUSH Q8H PRN PRN Reason: Nausea Sodium Chloride (0.9 % Sodium Chloride Flush 3 Ml Syringe) 3 ml IVFLUSH QSHIFT [facility] Last Admin: 09/25/21 07:24 Dose: Not Given Documented by: Time Spent With Patient Time: Total time spent is greater than 50% in coordination of care (as documented) at patient's floor/unit and/or counseling patient: Time with patient: 15 - 24 minutes Quality Stroke Does the patient have a stroke diagnosis?: No VTE Prior VTE?: No VTE Risk Level:: Medical - low VTE Device Contraindication: N/A - Device Ordered VTE Drug Contraindication: Treatment Not Indicated
--- NOTE | 2021-09-25 08:08 | P.PNGS_ITS ---
Subjective Subjective Date of Service: 09/25/21 Patient reports: tolerating liquids well and no bowel movement Interval history: 26 yo female s/p uneventful LSG on 09/03/21 presented with feeling unwell since 09/20/21 with symptoms of nausea, vomiting, anxiety. She was seen in the office 08/24/21 and found to have sinus tachycardia and signs of dehydration. Sent to the ER with evidence of dehydration (hypernatremia, elevated SCr,) Abd CT neg for acute pathology and she was admitted overnight. She has been receiving D5NS at 200. Tolerated sips overnight however still with chills and states feeling dehydrated. She also endorses anxiety and concern about her Aunt putting a spell on her. Physical Exam Vital Signs: Vital Signs: Last Vital Signs Temp 97.3 F 09/25/21 07:40 Pulse 67 09/25/21 07:40 Resp 20 09/25/21 07:40 BP 147/60 H 09/25/21 07:40 Pulse Ox 99 09/25/21 03:48 BMI result Body Mass Index 40.8 Const: General: cooperative, healthy appearing and anxious Resp: Effort & Inspection: normal respiratory effort Auscultation: clear to auscultation bilaterally Cardio: Rate: tachycardic Rhythm: regular rhythm GI: Inspection: Yes normal to inspection and Yes incision (healing well) Palpation (GI): Soft to palpation and nontender Auscultation: normal bowel sounds Extrem: General: Yes normal to inspection and Yes no calf tenderness Objective Data Active Medications Cyanocobalamin (Cyanocobalamin (Vitamin B-12) 1,000 Mcg/Ml Vial) 1,000 mcg IM ONCE ONE Stop: 09/25/21 08:30 Famotidine (Famotidine/Pf 20 Mg/2 Ml Vial) 20 mg IVPUSH BID [facility] 234 BEDS AT [facility] Last Admin: 09/24/21 19:48 Dose: 20 mg Documented by: RHYS Dextrose/Sodium Chloride (D5ns) 1,000 mls @ 200 mls/hr IVCONT .Q5H [facility] 234 BEDS AT [facility] Last Admin: 09/25/21 04:05 Dose: 200 mls/hr Documented by: RHYS Thiamine HCl 100 mg/ Sodium (Chloride) 101 mls @ 202 mls/hr IV DAILY [facility] 234 BEDS AT [facility] Folic Acid 1 mg/ Sodium (Chloride) 50.2 mls @ 100.4 mls/hr IV DAILY [facility]CLUDE 234 BEDS AT THE [facility] Potassium Chloride () 20 meq in 100 mls @ 100 mls/hr IV ONCE ONE Stop: 09/25/21 09:03 Lorazepam (Lorazepam 2 Mg/Ml Vial) 0.5 mg IVPUSH Q8H PRN PRN Reason: anxiety/restlessness Ondansetron HCl (Ondansetron Hcl 4 Mg/2 Ml Vial) 4 mg IVPUSH Q8H PRN PRN Reason: Nausea Sodium Chloride (0.9 % Sodium Chloride Flush 3 Ml Syringe) 3 ml IVFLUSH QSHIFT [facility] Last Admin: 09/25/21 07:24 Dose: Not Given Documented by: ELENI Non-Admin Reason: IV Running Labs CBC & Chem 7: 09/25/21 05:37 09/25/21 05:37 Labs: Laboratory Results - last 24 hr 09/24/21 09/24/21 09/24/21 12:24 12:24 12:24 MCV 81.5 MCH 28.5 MCHC 35.0 RDW 14.3 Plt Count 285 MPV 12.9 H Immature Gran % (Auto) 0.5 H Neut % (Auto) 87.5 H Lymph % (Auto) 7.4 L [place] % (Auto) 4.3 Eos % (Auto) 0.0 Baso % (Auto) 0.3 Lymph # (Auto) 0.8 L [place] # (Auto) 0.5 Eos # (Auto) 0.0 Baso # (Auto) 0.0 Abs Immat Gran (auto) 0.05 H Absolute Neuts (auto) 9.5 H Absolute Nucleated RBC 0.000 Nucleated RBC % (auto) 0.0 Anion Gap 26 H Estim Creat Clear Calc 87.1 Estimated GFR 55 Random Glucose 222 H Lactic Acid Calcium 10.8 H D Total Bilirubin 2.4 H AST 57 H ALT 146 H Alkaline Phosphatase 139 H D Total Protein 7.8 Albumin 4.7 Lipase 10 Beta HCG, Quant COVID-19 (DANIA) Negative COVID-19 Clin Com See Note 09/24/21 09/24/21 09/25/21 12:24 12:24 05:37 MCV 82.2 MCH 28.4 MCHC 34.5 RDW 14.4 Plt Count 202 D MPV 12.9 H Immature Gran % (Auto) 0.4 Neut % (Auto) 64.9 Lymph % (Auto) 21.1 [place] % (Auto) 13.2 H Eos % (Auto) 0.0 Baso % (Auto) 0.4 Lymph # (Auto) 1.7 [place] # (Auto) 1.1 Eos # (Auto) 0.0 Baso # (Auto) 0.0 Abs Immat Gran (auto) 0.03 Absolute Neuts (auto) 5.4 Absolute Nucleated RBC 0.000 Nucleated RBC % (auto) 0.0 Anion Gap Estim Creat Clear Calc Estimated GFR Random Glucose Lactic Acid 1.8 Calcium Total Bilirubin AST ALT Alkaline Phosphatase Total Protein Albumin Lipase Beta HCG, Quant < 2 COVID-19 (DANIA) COVID-19 Clin Com 09/25/21 05:37 MCV MCH MCHC RDW Plt Count MPV Immature Gran % (Auto) Neut % (Auto) Lymph % (Auto) [place] % (Auto) Eos % (Auto) Baso % (Auto) Lymph # (Auto) [place] # (Auto) Eos # (Auto) Baso # (Auto) Abs Immat Gran (auto) Absolute Neuts (auto) Absolute Nucleated RBC Nucleated RBC % (auto) Anion Gap 17 Estim Creat Clear Calc 108.6 Estimated GFR > 60 Random Glucose 188 H Lactic Acid Calcium 9.6 D Total Bilirubin AST ALT Alkaline Phosphatase Total Protein Albumin Lipase Beta HCG, Quant COVID-19 (DANIA) COVID-19 Clin Com Procedures Date of Service Date of Service: 09/25/21 Progress Note: A&P Assessment and plan (1) Acute dehydration: Status: Acute Assessment and Plan: Continue IVF and monitor C7 in the morning. Encouraged PO as tolerated bariatric phase 3. (2) Anxiety: Status: Acute Assessment and Plan: Has had lorazepam q 8 hrs prn, consult to psych. Pt herself endorses significant anxiety. Not previously appreciated in our office. This seems to have been since this past Wednesday (3) Nausea & vomiting: Status: Acute Assessment and Plan: Prn Zofran, improved from yesterday (4) Hypokalemia: Status: Acute Assessment and Plan: Replace w Kcl 10 meq IV x 2. Repeat C7 in am. Plan Pt seen and examined with Dr Bird Fall Risk Details Current Medications: Current Medications Cyanocobalamin (Cyanocobalamin (Vitamin B-12) 1,000 Mcg/Ml Vial) 1,000 mcg IM ONCE ONE Stop: 09/25/21 08:30 Famotidine (Famotidine/Pf 20 Mg/2 Ml Vial) 20 mg IVPUSH BID [facility]S [facility]CLUDE 234 BEDS AT [facility] Last Admin: 09/24/21 19:48 Dose: 20 mg Documented by: Dextrose/Sodium Chloride (D5ns) 1,000 mls @ 200 mls/hr IVCONT .Q5H COUNTS INCLUDE 234 BEDS AT THE [facility] Last Admin: 09/25/21 04:05 Dose: 200 mls/hr Documented by: Thiamine HCl 100 mg/ Sodium (Chloride) 101 mls @ 202 mls/hr IV DAILY [facility]S INCLUDE 234 BEDS AT [facility] Folic Acid 1 mg/ Sodium (Chloride) 50.2 mls @ 100.4 mls/hr IV DAILY [facility] INCLUDE 234 BEDS AT [facility] Potassium Chloride () 20 meq in 100 mls @ 100 mls/hr IV ONCE ONE Stop: 09/25/21 09:03 Lorazepam (Lorazepam 2 Mg/Ml Vial) 0.5 mg IVPUSH Q8H PRN PRN Reason: anxiety/restlessness Ondansetron HCl (Ondansetron Hcl 4 Mg/2 Ml Vial) 4 mg IVPUSH Q8H PRN PRN Reason: Nausea Sodium Chloride (0.9 % Sodium Chloride Flush 3 Ml Syringe) 3 ml IVFLUSH QSHIFT COUNTS [facility]CLUDE 234 BEDS AT [facility] Last Admin: 09/25/21 07:24 Dose: Not Given Documented by: Time Spent With Patient Time: Total time spent is greater than 50% in coordination of care (as documented) at patient's floor/unit and/or counseling patient: Time with patient: 25 - 35 minutes No Severe Sepsis: No Severe Sepsis Quality Stroke Does the patient have a stroke diagnosis?: No VTE Prior VTE?: No VTE Risk Level:: Medical - low VTE Device Contraindication: N/A - Device Ordered VTE Drug Contraindication: Treatment Not Indicated
[2021-09-25] MEDS: LORazepam 2 MG/ML VIAL 0.5 MG IVPUSH (08:57)
[2021-09-25] MEDS: Folic Acid 1 MG in 0.9 % Sodium Chloride 50 ML 100.4 MG IV (08:57)
[2021-09-25] MEDS: Cyanocobalamin (Vitamin B-12) 1,000 MCG/ML VIAL 1000 MCG IM (08:57)
[2021-09-25] MEDS: ondansetron HCL 4 MG/2 ML VIAL IVPUSH (08:57)
[2021-09-25] MEDS: Famotidine/PF 20 MG/2 ML VIAL IVPUSH ×2 (08:58→19:45)
[2021-09-25] MEDS: Thiamine HCL 100 MG in 0.9 % Sodium Chloride 100 ML 202 MG IV (09:59)
[2021-09-25] MEDS: Potassium Chloride/H20 10 MEQ/100 ML PIGGYBACK 100 MEQ IV ×2 (11:25→12:28)
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
--- NOTE | 2021-09-25 15:38 | MHC.CM.PN ---
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
[2021-09-25] MEDS: 0.9 % Sodium Chloride Flush 3 ML SYRINGE IVFLUSH (19:45)
[2021-09-25] MEDS: risperiDONE 0.5 MG TABLET PO (19:46)
[2021-09-26 03:49] VITALS: BP 129/76; PULSE 72; RESP 14; TEMP 36.1; O2SAT 99
[2021-09-26] MEDS: Dextrose 5 % and 0.9 % NaCl 1,000 ML 200 ML IVCONT ×2 (04:00→08:30)
[2021-09-26 06:05] LABS: MANUAL DIFF FLAG NO
[2021-09-26 06:12] LABS: Basophils Percent Auto 0.6 % (0-2); Eosinophils Absolute Auto 0.1 X10*3/uL (0.0-0.4); Eosinophils Percent Auto 1.5 % (0-4); Hematocrit 37.3 % (37.0-47.0); Hemoglobin 12.4 g/dl (12.0-16.0); Imm Gran Abs Auto 0.01 X10*3/uL (0.00-0.03); Imm Gran Pct Auto 0.2 % (0.0-0.4); Lymphocytes Absolute Auto 1.6 X10*3/uL (1.2-4.9); Lymphocytes Percent Auto 32.6 % (20-40); Mean Corpuscular HGB Conc 33.2 g/dl (31.0-35.0); Mean Corpuscular Hemoglobin 28.1 pg (27.0-33.0); Mean Corpuscular Volume 84.4 fL (80.0-98.0); Mean Platelet Volume 12.9 fL (9.4-12.3); Monocytes Absolute Auto 0.6 X10*3/uL (0.1-1.2); Monocytes Percent Auto 11.4 % (2-11); Neutrophils Absolute Auto 2.6 x10*3/uL (2.0-8.3); Neutrophils Percent Auto 53.7 % (45-73); Platelet Count 136 X10*3/uL (160-400); Red Blood Count 4.42 X10*6/uL (4.20-5.50); Red Cell Distribution Width 14.5 % (11.0-16.0); White Blood Count 4.8 X10*3/uL (4.8-10.8)
[2021-09-26 06:34] LABS: Anion Gap 10 (12-20); Blood Urea Nitrogen 8 mg/dL (9-16); Calcium 8.9 mg/dL (8.4-10.2); Carbon Dioxide 27 mmol/L (22-29); Chloride 111 mmol/L (96-108); Creatinine Clr Calc Pharmacy 158.8; Estimated Glomerular Filt Rate > 60; Glucose Random 152 mg/dL (60-115); Potassium 3.2 mmol/L (3.3-5.1); Sodium 145 mmol/L (135-145)
[2021-09-26 08:00] VITALS: BP 137/90; PULSE 71; RESP 20; TEMP 36.4; O2SAT 99
[2021-09-26] MEDS: Famotidine/PF 20 MG/2 ML VIAL IVPUSH (08:30)
[2021-09-26] MEDS: Folic Acid 1 MG in 0.9 % Sodium Chloride 50 ML 100.4 MG IV (08:30)
[2021-09-26] MEDS: Thiamine HCL 100 MG in 0.9 % Sodium Chloride 100 ML 202 MG IV (08:30)
--- NOTE | 2021-09-26 08:34 | PM.PNGS ---
Subjective Subjective Date of Service: 09/26/21 Interval history: Feels better. Less anxious. Had brief psychotic episode per Psychiatrist. We appreciate input Tolerating phase 3 bariatric diet Physical Exam Vital Signs: Vital Signs: Last Vital Signs Temp 97.5 F 09/26/21 08:00 Pulse 71 09/26/21 08:00 Resp 20 09/26/21 08:00 BP 137/90 H 09/26/21 08:00 Pulse Ox 99 09/26/21 08:00 BMI result Body Mass Index 40.8 GI: Inspection: Yes normal to inspection, Yes incision (healing well) and Yes obesity Extrem: Right lower extremity: normal to inspection (no calf tenderness) Left lower extremity: normal to inspection (no calf tenderness) Objective Data Active Medications Famotidine (Famotidine/Pf 20 Mg/2 Ml Vial) 20 mg IVPUSH BID [facility] Last Admin: 09/26/21 08:30 Dose: 20 mg Documented by: COTEMA Dextrose/Sodium Chloride (D5ns) 1,000 mls @ 200 mls/hr IVCONT .Q5H [facility] Last Admin: 09/26/21 08:30 Dose: 200 mls/hr Documented by: COTEMA Thiamine HCl 100 mg/ Sodium (Chloride) 101 mls @ 202 mls/hr IV DAILY [facility] Last Admin: 09/26/21 08:30 Dose: 202 mls/hr Documented by: COTEMA Folic Acid 1 mg/ Sodium (Chloride) 50.2 mls @ 100.4 mls/hr IV DAILY [facility] Last Admin: 09/26/21 08:30 Dose: 100.4 mls/hr Documented by: ARYAEMA Lorazepam (Lorazepam 2 Mg/Ml Vial) 0.5 mg IVPUSH Q8H PRN PRN Reason: anxiety/restlessness Last Admin: 09/25/21 08:57 Dose: 0.5 mg Documented by: ARYAEMA Risperidone (Risperidone 0.5 Mg Tablet) 0.5 mg PO BEDTIME [facility] Last Admin: 09/25/21 19:46 Dose: 0.5 mg Documented by: RHYS Risperidone (Risperidone 0.5 Mg Tablet) 0.5 mg PO DAILY PRN PRN Reason: agitation, anxiety Sodium Chloride (0.9 % Sodium Chloride Flush 3 Ml Syringe) 3 ml IVFLUSH QSHIFT [facility] Last Admin: 09/26/21 07:17 Dose: Not Given Documented by: ELENI Non-Admin Reason: IV Running Labs CBC & Chem 7: 09/26/21 05:48 09/26/21 05:48 Labs: Laboratory Results - last 24 hr 09/26/21 09/26/21 05:48 05:48 MCV 84.4 MCH 28.1 MCHC 33.2 RDW 14.5 Plt Count 136 L D MPV 12.9 H Immature Gran % (Auto) 0.2 Neut % (Auto) 53.7 Lymph % (Auto) 32.6 [place] % (Auto) 11.4 H Eos % (Auto) 1.5 Baso % (Auto) 0.6 Lymph # (Auto) 1.6 [place] # (Auto) 0.6 Eos # (Auto) 0.1 Baso # (Auto) 0.0 Abs Immat Gran (auto) 0.01 Absolute Neuts (auto) 2.6 Absolute Nucleated RBC 0.000 Nucleated RBC % (auto) 0.0 Anion Gap 10 L Estim Creat Clear Calc 158.8 Estimated GFR > 60 Random Glucose 152 H Calcium 8.9 D Procedures Date of Service Date of Service: 09/26/21 Progress Note: A&P Assessment and plan (1) Brief psychotic disorder: Status: Acute Assessment and Plan: 1. Continue Risperdal 2. Will follow with our therapist 3. Continue phase 3 bariatric diet with 2 Celebrate 4:1 shakes (2 scoops each in 8oz almond milk) and one Ensure Max or Premier protein shake 4. Discussed with patient (2) MDD (major depressive disorder): Status: Acute (3) S/P laparoscopic sleeve gastrectomy: Status: Acute Fall Risk Details Current Medications: Current Medications Famotidine (Famotidine/Pf 20 Mg/2 Ml Vial) 20 mg IVPUSH BID [facility] Last Admin: 09/26/21 08:30 Dose: 20 mg Documented by: Dextrose/Sodium Chloride (D5ns) 1,000 mls @ 200 mls/hr IVCONT .Q5H [facility] Last Admin: 09/26/21 08:30 Dose: 200 mls/hr Documented by: Thiamine HCl 100 mg/ Sodium (Chloride) 101 mls @ 202 mls/hr IV DAILY [facility] Last Admin: 09/26/21 08:30 Dose: 202 mls/hr Documented by: Folic Acid 1 mg/ Sodium (Chloride) 50.2 mls @ 100.4 mls/hr IV DAILY [facility] Last Admin: 09/26/21 08:30 Dose: 100.4 mls/hr Documented by: Lorazepam (Lorazepam 2 Mg/Ml Vial) 0.5 mg IVPUSH Q8H PRN PRN Reason: anxiety/restlessness Last Admin: 09/25/21 08:57 Dose: 0.5 mg Documented by: Risperidone (Risperidone 0.5 Mg Tablet) 0.5 mg PO BEDTIME [facility] Last Admin: 09/25/21 19:46 Dose: 0.5 mg Documented by: Risperidone (Risperidone 0.5 Mg Tablet) 0.5 mg PO DAILY PRN PRN Reason: agitation, anxiety Sodium Chloride (0.9 % Sodium Chloride Flush 3 Ml Syringe) 3 ml IVFLUSH QSHIFT [facility] Last Admin: 09/26/21 07:17 Dose: Not Given Documented by: Time Spent With Patient Time: Total time spent is greater than 50% in coordination of care (as documented) at patient's floor/unit and/or counseling patient: Time with patient: less than 15 minutes Quality Stroke Does the patient have a stroke diagnosis?: No VTE Prior VTE?: No VTE Risk Level:: Medical - low VTE Device Contraindication: N/A - Device Ordered VTE Drug Contraindication: Treatment Not Indicated
[2021-09-26 09:16] VITALS: BP 150/78; PULSE 71
--- NOTE | 2021-09-26 10:54 | P.CDIC_ITS ---
CDI Concurrent Query Documentation Clarification: PHYSICIAN'S DOCUMENTATION REQUEST Date of Query: 09/26/21 1054 Patient Name: Yulia Ryan Admit Date: 09/24/21 Dear Doctor, A review of the medical record indicates additional documentation may be needed. Please review below and update the documentation accordingly. Clinical Indicators: Height: [] 5'4 Weight: [] 108 kg BMI: [] 40.9 Other Clinical Notes Supporting Significance of the BMI: Risk Factors/Clinical Indicators/Treatments s/p sleeve gastrectomy on 09/03/21 If possible, please provide an associated diagnosis related to the abnormal BMI, such as: For a BMI >= 40: * Overweight * Obesity * Due to excess calories * Drug induced * Due to other cause * Severe or Morbid Obesity * With alveolar hypoventilation * Without alveolar hypoventilation Or: * BMI is not significant * Other (please specify) * Unable to determine Use of terms such as suspected, likely, concern for, or probable (associated with a specific diagnosis that is being evaluated, monitored, or treated as if it exists) are acceptable and can be coded in the inpatient setting, when documented at the time of discharge. Thank you, Mora Graves RN Extension: [phone] Please use your independent medical judgment in providing your response. THIS QUERY IS PART OF THE PERMANENT MEDICAL RECORD
--- NOTE | 2021-09-26 11:02 | MHC.CARE ---
Pt has been referred to [facility].
[2021-09-26 11:23] VITALS: BP 153/74; PULSE 74; RESP 20; TEMP 36.3; O2SAT 100
--- NOTE | 2021-09-26 12:08 | P.DS_ITS ---
DS: Providers Provider Date of Service: 09/26/21 Date of admission: 09/24/21 16:06 Primary care physician: Marcella Khna MD Consults: 09/25/21 08:01 Consult to Psychiatry Routine Consulting Provider: Psych Covering Reason for consultation: significant anxiety Has provider been notified: Yes 09/26/21 10:54 Consult to Care Team Stat Comment: Reason for consultation: new dx of brief psychotic episode, will be discharged today DS: Diagnosis Discharge Diagnosis (1) Brief psychotic disorder: Status: Acute (2) MDD (major depressive disorder): Status: Acute (3) S/P laparoscopic sleeve gastrectomy: Status: Acute DS: Summary Hospital Course Hospital Course: Patient was admitted for dehydration and brief psychotic event on Sep 24, 2021 after LSG on Sep 03, 2021 [place] [facility] [place] was admitted, rehydrated an given anti emetics, she was able tolerate phase 3 bariatric diet without anitemetic use. She was seen by psychiatry diagnosed with bref psychoses and started on Risperidal. Pt toelrated this medication wll and agrees to continue usage at home. She will follow up with her meal plan of 2 protien shakes and at least 2 bottles of water per day and will contact Dr Marlow within 48 hours for follow up. She will be seen in bariatric office in 1 week and Care team is arrangign psychiatric follow up. Time Spent with Patient Time attestation: Total time spent providing and/or coordinating discharge services: Discharge coordination time: Greater than 30 minutes Quality: Stroke Does the patient have a stroke diagnosis?: No Physical Exam Vital Signs: Vital Signs: Last Vital Signs Temp 97.3 F 09/26/21 11:23 Pulse 74 09/26/21 11:23 Resp 20 09/26/21 11:23 BP 153/74 H 09/26/21 11:23 Pulse Ox 100 09/26/21 11:23 BMI result Body Mass Index 40.8 DS: Data Data Completed and Pending Completed studies during hospitalization [Text1]: Procedures Excision of Stomach, Percutaneous Endoscopic Approach, Vertical (09/03/21) Labs on day of discharge: Laboratory Results - last 24 hr 09/26/21 09/26/21 05:48 05:48 WBC 4.8 RBC 4.42 Hgb 12.4 Hct 37.3 MCV 84.4 MCH 28.1 MCHC 33.2 RDW 14.5 Plt Count 136 L D MPV 12.9 H Immature Gran % (Auto) 0.2 Neut % (Auto) 53.7 Lymph % (Auto) 32.6 Wilkinson % (Auto) 11.4 H Eos % (Auto) 1.5 Baso % (Auto) 0.6 Lymph # (Auto) 1.6 Wilkinson # (Auto) 0.6 Eos # (Auto) 0.1 Baso # (Auto) 0.0 Abs Immat Gran (auto) 0.01 Absolute Neuts (auto) 2.6 Absolute Nucleated RBC 0.000 Nucleated RBC % (auto) 0.0 Sodium 145 Potassium 3.2 L Chloride 111 H Carbon Dioxide 27 Anion Gap 10 L BUN 8 L Creatinine 0.65 Estim Creat Clear Calc 158.8 Estimated GFR > 60 Random Glucose 152 H Calcium 8.9 D Discharge Plan Discharge Anticipated Discharge Date/Time: 09/26/21 09:17 Patient Disposition: Home, Self-Care Discharge Diagnosis: s/p brief psychotic disorder Referrals: [facility] [Other] - 1 Week ([facility], [facility]. ([facility]) will be following up with you within one week of discharge for therapy and psychiatric services. If you don't hear from them please follow up directly with [facility] . ) [facility] [Other] () Marcella Khan MD [Primary Care Provider] - 1 Week Discharge Medications: New risperidone 0.5 mg Tablet 0.5 mg PO BEDTIME Qty: 30 0RF risperidone 0.5 mg Tablet 0.5 mg PO DAILY PRN (Reason: agitation, anxiety) Qty: 30 0RF Continued ondansetron HCl 4 mg tablet 4 mg PO Q12H Qty: 30 0RF (DME) blood-glucose meter [Blood Glucose Monitoring] Kit See Rx Instructions .Route Qty: 1 0RF Rx Instructions: As directed pantoprazole 40 mg tablet,delayed release (DR/EC) 40 mg PO DAILY Qty: 30 2RF sucralfate 100 mg/mL suspension 10 ml PO BID Qty: 400 2RF Discharge Orders: Discharge Order (Routine); Ordered 09/26/21 Ordered By: Darya Guan Diet: other Activity on Discharge: No heavy lifting Stand Alone Forms: Patient Portal Discharge page Care Plan Goals: weight loss. Care team consulted today for follow up with them. New medications given 30 day supply only. Health Concerns: brief psychotic disorder, s/pLSG Plan of Treatment: Continue phase 3 bariatric diet with 2 Celebrate 4:1 shakes (2 scoops each in 8oz almond milk) and one Ensure Max or Premier protein shake Patient will have follow up in office with Darya Guan next Wednesday, Sep t 10:30 am and also with Kristan He LCSW in the bariatric office on October 08 at 1 pm. Assessment: see above
--- NOTE | 2021-10-02 07:05 | P.CDIR_ITS ---
Documented by User: Mora Graves RN 10/02/21 07:07 Retrospective Query PHYSICIAN'S DOCUMENTATION REQUEST Date of Query: 10/02/21705 Patient Name: Yulia Ryan Admit Date: 09/24/21 Dear Doctor, A review of the medical record indicates additional documentation may be needed. Please review below and update the documentation accordingly. Clinical Indicators: Height: [] 5'4 Weight: [] 108 kg BMI: [] 40.9 Other Clinical Notes Supporting Significance of the BMI: Risk Factors/Clinical Indicators/Treatments s/p sleeve gastrectomy on 09/03/21 If possible, please provide an associated diagnosis related to the abnormal BMI, such as: For a BMI >= 40: * Overweight * Obesity * Due to excess calories * Drug induced * Due to other cause * Severe or Morbid Obesity * With alveolar hypoventilation * Without alveolar hypoventilation Or: * BMI is not significant * Other (please specify) * Unable to determine Use of terms such as suspected, likely, concern for, or probable (associated with a specific diagnosis that is being evaluated, monitored, or treated as if it exists) are acceptable and can be coded in the inpatient setting, when documented at the time of discharge. Thank you, Mora Graves RN Extension: [phone] Please use your independent medical judgment in providing your response. THIS QUERY IS PART OF THE PERMANENT MEDICAL RECORD Documented by User: Ruben Bird MD 12/30/21 14:45 Retrospective Query PHYSICIAN'S DOCUMENTATION REQUEST Date of Query: 10/02/21705 Patient Name: Yulia Ryan Admit Date: 09/24/21 Dear Doctor, A review of the medical record indicates additional documentation may be needed. Please review below and update the documentation accordingly. Clinical Indicators: Height: [] 5'4 Weight: [] 247.8 lbs BMI: [] 42.8 Other Clinical Notes Supporting Significance of the BMI: Risk Factors/Clinical Indicators/Treatments s/p sleeve gastrectomy on 09/03/21 If possible, please provide an associated diagnosis related to the abnormal BMI, such as: For a BMI >= 40: * Overweight * Obesity * Due to excess calories * Drug induced * Due to other cause * Severe or Morbid Obesity * With alveolar hypoventilation * Without alveolar hypoventilation Or: * BMI is not significant * Other (please specify) * Unable to determine Use of terms such as suspected, likely, concern for, or probable (associated with a specific diagnosis that is being evaluated, monitored, or treated as if it exists) are acceptable and can be coded in the inpatient setting, when documented at the time of discharge. Thank you, Mora Graves RN Extension: [phone] Please use your independent medical judgment in providing your response. THIS QUERY IS PART OF THE PERMANENT MEDICAL RECORD Provider Response: Morbid Obesity
--- NOTE | 2021-10-09 14:37 | P.CDIR_ITS ---
Retrospective Query PHYSICIAN'S DOCUMENTATION REQUEST Date of Query: 10/09/21 1438 Patient Name: Yulia Ryan Admit Date: 09/24/21 Dear Doctor, A review of the medical record indicates additional documentation may be needed. Please review below and update the documentation accordingly. Clinical Indicators: Height: [] 5'4 Weight: [] 108 kg BMI: [] 40.9 Other Clinical Notes Supporting Significance of the BMI: Risk Factors/Clinical Indicators/Treatments s/p sleeve gastrectomy on 09/03/21 If possible, please provide an associated diagnosis related to the abnormal BMI, such as: For a BMI >= 40: * Overweight * Obesity * Due to excess calories * Drug induced * Due to other cause * Severe or Morbid Obesity * With alveolar hypoventilation * Without alveolar hypoventilation Or: * BMI is not significant * Other (please specify) * Unable to determine Use of terms such as suspected, likely, concern for, or probable (associated with a specific diagnosis that is being evaluated, monitored, or treated as if it exists) are acceptable and can be coded in the inpatient setting, when documented at the time of discharge. Thank you, Mora Graves RN Extension: [phone] Please use your independent medical judgment in providing your response. THIS QUERY IS PART OF THE PERMANENT MEDICAL RECORD
== END 2021-09-26 14:21 | disposition home or self-care (01) | DRG 422 ==
LOC: HO.ED 15:49 → HO.EDOVER 16:16 → HO.S3 18:46
PROVIDERS: Physician Assistant Surgical; Admitting Provider Surgery; Emergency Provider Emergency Medicine Emergency Medical Services; PCP Internal Medicine; Visit Provider Surgery
DX: E86.0 Dehydration (principal); E66.01 Morbid (severe) obesity due to excess calories; E87.6 Hypokalemia; F41.9 Anxiety disorder, unspecified; F32.9 Major depressive disorder, single episode, unspecified; Z98.84 Bariatric surgery status; Z20.822 Contact with and (suspected) exposure to COVID-19; Z79.899 Other long term (current) drug therapy; Z68.41 Body mass index [BMI] 40.0-44.9, adult
CPT/HCPCS: 36415; 74177; 80048; 80053; 83605; 83690; 84702; 85025; 87635; 96365; 96372; 96375; 99024; 99212; 99284; J2060; J2405; J3411; Q9967

== ENCOUNTER → 2021-10-02 10:18 | Outpatient (BNVA) | payer MEDICAID, SELFPAY | PROVIDERS: PCP Internal Medicine; Referring Provider Internal Medicine; Visit Provider Physician Assistant | DX: E66.01 Morbid (severe) obesity due to excess calories (principal); Z68.41 Body mass index [BMI] 40.0-44.9, adult; F23 Brief psychotic disorder; Z98.84 Bariatric surgery status | CPT/HCPCS: 99212 ==

== ENCOUNTER → 2021-10-08 10:56 | Outpatient (BNVA) | payer MEDICAID, SELFPAY | PROVIDERS: PCP Internal Medicine; Visit Provider Physician Assistant | DX: E66.9 Obesity, unspecified (principal); Z98.84 Bariatric surgery status; Z68.39 Body mass index [BMI] 39.0-39.9, adult | CPT/HCPCS: 90834; 99212 ==

== ENCOUNTER → 2021-10-15 14:00 | Outpatient (BNVA) | payer OTHER, SELFPAY | PROVIDERS: PCP Internal Medicine; Visit Provider Counselor Mental Health | DX: F43.22 Adjustment disorder with anxiety (principal); F23 Brief psychotic disorder; Z98.84 Bariatric surgery status | CPT/HCPCS: H0046 ==

== ENCOUNTER → 2021-10-16 10:15 | Outpatient (BNVA) | payer OTHER, SELFPAY | PROVIDERS: PCP Internal Medicine; Visit Provider Counselor Mental Health | DX: F43.22 Adjustment disorder with anxiety (principal); E66.9 Obesity, unspecified | CPT/HCPCS: 90834 ==

== ENCOUNTER → 2021-10-23 13:30 | Outpatient (BNVA) | payer OTHER, SELFPAY | PROVIDERS: PCP Internal Medicine; Visit Provider Counselor Mental Health | DX: F43.22 Adjustment disorder with anxiety (principal); E66.9 Obesity, unspecified | CPT/HCPCS: 90834 ==

== ENCOUNTER → 2021-10-27 13:39 | Outpatient (BNVA) | payer MEDICAID, SELFPAY | PROVIDERS: PCP Internal Medicine; Referring Provider Internal Medicine; Visit Provider Physician Assistant | DX: E66.9 Obesity, unspecified (principal); Z68.37 Body mass index [BMI] 37.0-37.9, adult; Z98.84 Bariatric surgery status | CPT/HCPCS: 99212 ==

== ENCOUNTER → 2021-10-30 13:30 | Outpatient (BNVA) | payer MEDICAID, SELFPAY | PROVIDERS: PCP Internal Medicine; Visit Provider Counselor Mental Health | DX: F43.22 Adjustment disorder with anxiety (principal); E66.9 Obesity, unspecified; Z98.84 Bariatric surgery status | CPT/HCPCS: 90834 ==

== ENCOUNTER → 2021-11-06 08:00 | Outpatient (BNVA) | payer MEDICAID, SELFPAY | PROVIDERS: PCP Internal Medicine; Visit Provider Physician Assistant | DX: Z98.84 Bariatric surgery status (principal); Z71.3 Dietary counseling and surveillance | CPT/HCPCS: 99212 ==

== ENCOUNTER → 2021-11-13 13:37 | Outpatient (BNVA) | payer MEDICAID, SELFPAY | PROVIDERS: PCP Internal Medicine; Visit Provider Counselor Mental Health | DX: F43.22 Adjustment disorder with anxiety (principal); E66.9 Obesity, unspecified; R94.31 Abnormal electrocardiogram [ECG] [EKG]; G47.33 Obstructive sleep apnea (adult) (pediatric); E11.9 Type 2 diabetes mellitus without complications; I10 Essential (primary) hypertension; Z90.3 Acquired absence of stomach [part of]; Z98.84 Bariatric surgery status | CPT/HCPCS: 90834 ==

== ENCOUNTER → 2021-11-17 13:21 | Outpatient (BNVA) | payer OTHER, MEDICAID, SELFPAY | PROVIDERS: PCP Internal Medicine; Referring Provider Internal Medicine; Visit Provider Physician Assistant Surgical | DX: Z13.89 Encounter for screening for other disorder (principal) ==

== ENCOUNTER → 2021-12-01 13:54 | Outpatient (BNVA) | payer MEDICAID, SELFPAY | PROVIDERS: PCP Internal Medicine; Referring Provider Internal Medicine; Visit Provider Physician Assistant | DX: E66.9 Obesity, unspecified (principal); Z68.34 Body mass index [BMI] 34.0-34.9, adult; Z98.84 Bariatric surgery status | CPT/HCPCS: 99212 ==

== ENCOUNTER 2021-12-29 14:10 | Outpatient (REF) | payer MEDICAID, SELFPAY ==
[2021-12-29 14:46] LABS: COVID-19 Test Positive (Negative)
== END 2021-12-29 14:11 | disposition home or self-care (01) ==
LOC: HO.LAB 14:10
PROVIDERS: Visit Provider Internal Medicine
DX: Z20.822 Contact with and (suspected) exposure to COVID-19 (principal)
CPT/HCPCS: 87635; C9803

== ENCOUNTER 2023-05-07 09:33 | Outpatient (AMB) | payer MEDICAID, SELFPAY ==
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
[2023-05-07 09:46] VITALS: BP 140/87; PULSE 106; RESP 16; TEMP 36.2; O2SAT 100; BMI 37.8
== END 2023-05-07 10:29 | disposition home or self-care (01) ==
PROVIDERS: PCP Internal Medicine; Visit Provider Physician Assistant
DX: E66.9 Obesity, unspecified (principal); Z98.84 Bariatric surgery status
CPT/HCPCS: 99214

== ENCOUNTER 2023-05-07 09:33 | Outpatient (REF) | payer MEDICAID, SELFPAY ==
[2023-05-07 10:51] LABS: MANUAL DIFF FLAG NO
[2023-05-07 11:05] LABS: Basophils Percent Auto 0.3 % (0-2); Eosinophils Percent Auto 0.6 % (0-4); Hematocrit 39.8 % (37.0-47.0); Imm Gran Abs Auto 0.02 X10*3/uL (0.00-0.03); Imm Gran Pct Auto 0.3 % (0.0-0.4); Lymphocytes Absolute Auto 1.2 X10*3/uL (1.2-4.9); Lymphocytes Percent Auto 18.2 % (20-40); Mean Corpuscular HGB Conc 32.7 g/dl (31.0-35.0); Mean Corpuscular Hemoglobin 26.7 pg (27.0-33.0); Mean Corpuscular Volume 81.7 fL (80.0-98.0); Mean Platelet Volume 11.1 fL (9.4-12.3); Monocytes Absolute Auto 0.6 X10*3/uL (0.1-1.2); Monocytes Percent Auto 8.5 % (2-11); Neutrophils Absolute Auto 4.7 x10*3/uL (2.0-8.3); Neutrophils Percent Auto 72.1 % (45-73); Platelet Count 245 X10*3/uL (160-400); Red Blood Count 4.87 X10*6/uL (4.20-5.50); Red Cell Distribution Width 12.7 % (11.0-16.0); White Blood Count 6.6 X10*3/uL (4.8-10.8)
[2023-05-07 11:28] LABS: Estimated Average Glucose 82 mg/dL; Hemoglobin A1c % 4.5 % (<6.0)
[2023-05-07 11:48] LABS: Alanine Aminotransferase 16 U/L (0-31); Albumin Level 4.4 g/dL (3.5-5.0); Alkaline Phosphatase 69 U/L (39-117); Anion Gap 13 (12-20); Aspartate Amino Transferase 17 U/L (5-31); Bilirubin Total 0.5 mg/dL (0.0-1.0); Blood Urea Nitrogen 11 mg/dL (9-16); C Reactive Protein < 0.10 mg/dL (< or = 0.50); Calcium 9.4 mg/dL (8.4-10.2); Carbon Dioxide 23 mmol/L (22-29); Chloride 111 mmol/L (96-108); Cholesterol 186 mg/dL (<200); Estimated Glomerular Filt Rate > 60; Glucose Random 93 mg/dL (60-115); HDL Cholesterol 46 mg/dL (>40); Iron 44 mcg/dL (30-160); LDL Cholesterol Calculated 125 mg/dL (<100); Percent Iron Saturation 12 % (15-50); Potassium 3.8 mmol/L (3.3-5.1); Sodium 143 mmol/L (135-145); Total Iron Binding Capacity 378 mcg/dL (228-428); Total Protein 7.5 g/dL (6.5-8.0); Triglycerides 75 mg/dL (<150); Unsaturated Iron Binding 334 ug/dL
[2023-05-07 11:57] LABS: Ferritin 14 ng/mL (10-122); Insulin 8 uU/mL (2-29); Vitamin D 25-OH Total 26.5 ng/mL (>30)
[2023-05-07 12:16] LABS: Folate 11.3 ng/mL (> or = 4.0); Vitamin B12 344 pg/mL (200-900)
[2023-05-10 13:09] LABS: Calcium (PTHI) 9.5 mg/dL (8.6-10.2); PTHI 52 pg/mL (16-77)
[2023-05-11 16:03] LABS: Zinc 70 mcg/dL (60-130)
[2023-05-13 11:33] LABS: Vitamin A 35 mcg/dL (38-98)
[2023-05-13 15:04] LABS: Vitamin B1 16 nmol/L (8-30)
== END 2023-05-07 09:34 | disposition home or self-care (01) ==
LOC: HO.LAB 09:33
PROVIDERS: PCP Internal Medicine; Visit Provider Physician Assistant
DX: E66.9 Obesity, unspecified (principal); Z98.84 Bariatric surgery status
CPT/HCPCS: 36415; 80053; 80061; 82306; 82607; 82728; 82746; 83036; 83525; 83540; 83970; 84425; 84443; 84590; 84630; 85025; 86140; 99212

== ENCOUNTER 2023-05-26 13:54 | Emergency (ER) | payer MEDICAID, SELFPAY ==
[2023-05-26 14:04] VITALS: BP 145/91; PULSE 77; RESP 17; TEMP 35.9; O2SAT 100; BMI 40.3
--- NOTE | 2023-05-26 14:04 | ED.ALLEREA ---
HPI - Allergic Reaction General Chief complaint: Allergic Reaction Stated complaint: allergic reaction to facial serum Time Seen by Provider: 05/26/23 14:10 Source: patient Mode of arrival: ambulatory Limitations: no limitations History of Present Illness HPI narrative: 27 yo female presents to the ER for evaluation of an allergic reaction on her face to a new vitamin C facial serum she applied yesterday. She states the skin on her cheeks was red yesterday but when she woke up this morning it was much worse. The skin is raw, burning and she has some swelling under her eyes. She states the skin feels tight. No oral swelling or lip swelling. No SOB or wheezing. No fevers. No history of similar reactions but does have sensitive skin, complaint: allergic reaction and facial swelling Onset (ago): day(s) (1) Exposure: other (topical face serum) Symptoms: rash and facial swelling Severity: severe Treatment prior to arrival: none Previous Allergic Reaction History: none Related Data Home Medications Medication Instructions Recorded Confirmed [id number] 45 mg-folic cap PO 05/07/23 05/07/23 acid 800 mcg-vit K 120 mcg capsule (Bariatric Multivitamins) Previous Rx's Medication Instructions Recorded blood-glucose meter (Blood Glucose #1 ea 06/18/21 Monitoring kit) pantoprazole 40 mg tablet,delayed 40 mg PO DAILY #30 tabs 08/27/21 release risperidone 0.5 mg tablet 0.5 mg PO BEDTIME #30 tabs 10/08/21 sennosides 8.6 mg-docusate sodium 1 tab-cap PO BEDTIME #30 tabs 10/27/21 50 mg tablet (Laxative Stool Softener With Senna) calcium citrate 315 mg-vitamin D3 1 tab PO BID #60 tabs 12/01/21 5 mcg (200 unit) tablet (Calcium Citrate + D) inulin 2 gram chewable tablet 2 g PO BID #60 tabs 12/01/21 (Fiber Gummies) cholecalciferol (vitamin D3) 25 25 mcg PO DAILY #30 caps 05/07/23 mcg (1,000 unit) capsule vitamin A palmitate 3,000 mcg 3,000 mcg PO DAILY 3 months #90 05/13/23 (10,000 unit) tablet tabs diphenhydramine HCl 25 mg capsule 50 mg (2 x 25 mg) PO TID PRN 05/26/23 (Benadryl) allergic reaction #30 caps prednisone 50 mg tablet 50 mg PO DAILY #5 tabs 05/26/23 Allergies Allergy/AdvReac Type Severity Reaction Status Date / Time No Known Allergies Allergy Verified 05/07/23 09:50 [No Known Allergies*] Review of Systems Review of Systems: Yes all other systems are reviewed and are negative [facility] Past Medical History Medical History Abnormal ECG Hypertension Insulin dependent type 2 diabetes mellitus Low left ventricular ejection fraction MDD (major depressive disorder), recurrent episode, moderate MARCIA (obstructive sleep apnea) Preop cardiovascular exam Steatosis, liver Surgical History S/P laparoscopic sleeve gastrectomy No significant past surgical history Family History Family History Mother Bipolar 1 disorder Father Heart disease Brother No problems noted. Brother No problems noted. Sister No problems noted. Social History Social History Household Members: Family Household Members Other:: mother Housing: Condominium Are you a primary laboratory animal care veterinarian to a significant other at home: No Do you presently have visiting nurse or other home services: No Alcohol intake: never Patient Tobacco Use Status: Never used Tobacco Advance Directives: No service: No Current occupational status: employed Physical Exam ED Vital Signs: Vital Signs - 24 hr 05/26/23 14:04 Temperature 96.6 F L Pulse Rate 77 Respiratory Rate 17 Blood Pressure 145/91 H Pulse Oximetry 100 Oxygen Delivery Method Room Air BMI result Body Mass Index 40.3 Appearance: Alert. Oriented X3. No acute distress. HEENT: face with a erythematous, raw, rash to the bilateral cheeks. no forehead involvement. very mild puffiness under the eyes, otherwise inspection of the eyes and mouth are normal. CVS: Normal heart rate and rhythm. Pulses normal. Respiratory: No respiratory distress. Skin: Skin warm and dry. Normal skin color. Normal skin turgor Extremities: normal inspection x4 Neuro: Oriented X 3. No motor deficit. No sensory deficit. Medical Decision Making Medical Decision Making MDM Narrative: 27 yo female presenting to the ER for evaluation of a painful, burning rash on her face that started yesterday after using a new facial serum from [employer] w/ vitamin C and hyaluronic acid in it. No airway involvement. very mild swelling below the eyes. will treat w/ benadryl and prednisone supportive care and return precautions d/w patient. stable for d/c home with outpatient follow up Differential Diagnosis Differential Diagnoses: The differential diagnosis associated with the presentation includes allergic reaction, anaphylaxis, contact dermatitis External Record Review External record reviewed: Outpatient record and Prior outpatient labs Prescription Management I considered prescription management with: Antibiotic and Other (benadryl, prednisone) Critical Care Time Critical Care Time Critical Care Time: No Discharge Plan Discharge Clinical Impression: Allergic reaction Qualifiers: Encounter type: initial encounter Qualified Code(s): T78.40XA - Allergy, unspecified, initial encounter Patient Disposition: Home, Self-Care Instructions: General Allergic Reaction (ED) Additional Instructions: take the benadryl 50 mg every 6-8 hours until your rash is completely resolved take the prednisone daily for 5 days, complete the entire course use topical vasoline or Aquaphor ointment to the face for moisture. do not use any scented creams or lotions if you develop new or worsening symptoms call 911 or come back to the ER for further evaluation. Prescriptions: New diphenhydramine HCl [Benadryl] 25 mg capsule 50 mg PO TID PRN (Reason: allergic reaction) Qty: 30 0RF prednisone 50 mg tablet 50 mg PO DAILY Qty: 5 0RF No Action cholecalciferol (vitamin D3) 25 mcg (1,000 unit) capsule 25 mcg PO DAILY Qty: 30 11RF vitamin A palmitate 3,000 mcg (10,000 unit) tablet 3,000 mcg PO DAILY 90 Days Qty: 90 2RF sennosides-docusate sodium [Lax Stool Softener With Senna] 8.6-50 mg tablet 1 tab-cap PO BEDTIME Qty: 30 6RF (DME) blood-glucose meter [Blood Glucose Monitoring] Kit See Rx Instructions .Route Qty: 1 0RF Rx Instructions: As directed pantoprazole 40 mg tablet,delayed release (DR/EC) 40 mg PO DAILY Qty: 30 2RF risperidone 0.5 mg tablet 0.5 mg PO BEDTIME Qty: 30 0RF calcium citrate-vitamin D3 [Calcium Citrate + D] 315 mg-5 mcg (200 unit) tablet 1 tab PO BID Qty: 60 11RF Fiber Gummies 2 gram tablet,chewable 2 g PO BID Qty: 60 6RF Bariatric Multivitamins 45 mg iron- 800 mcg-120 mcg capsule PO Interventions: ED Discharge Assessment Last Done: 05/26/23 14:22 Discharge Date/Time: 05/26/23 14:22
== END 2023-05-26 14:22 | disposition home or self-care (01) ==
PROVIDERS: Emergency Provider Emergency Medicine Emergency Medical Services
DX: L50.0 Allergic urticaria (principal); Z79.899 Other long term (current) drug therapy
CPT/HCPCS: 99282; 99283

== ENCOUNTER 2023-10-01 09:57 | Outpatient (REF) | payer MEDICAID, SELFPAY ==
[2023-10-02 09:08] LABS: Follicle Stimulating Hormone 6.7 mIU/mL; Lutenizing Hormone 3.3 mIU/mL
[2023-10-07 00:03] LABS: DHEA, Unconjugated 435 ng/dL
[2023-10-07 01:03] LABS: Estradiol Ultra Sensitive 12 pg/mL
== END 2023-10-01 09:58 | disposition home or self-care (01) ==
LOC: HO.HHCL 09:57
PROVIDERS: Visit Provider Internal Medicine
DX: Z31.69 Encounter for other general counseling and advice on procreation (principal)
CPT/HCPCS: 36415; 82626; 82670; 83001; 83002

== ENCOUNTER 2024-07-17 09:17 | Outpatient (REF) | payer MEDICAID, SELFPAY ==
[2024-07-17 11:46] LABS: Hematocrit 38.6 % (37.0-47.0); Hemoglobin 12.1 g/dl (12.0-16.0); Mean Corpuscular HGB Conc 31.3 g/dl (31.0-35.0); Mean Corpuscular Hemoglobin 24.4 pg (27.0-33.0); Mean Platelet Volume 11.5 fL (9.4-12.3); Platelet Count 262 X10*3/uL (160-400); Red Blood Count 4.95 X10*6/uL (4.20-5.50); Red Cell Distribution Width 14.2 % (11.0-16.0); White Blood Count 5.9 X10*3/uL (4.8-10.8)
[2024-07-17 12:01] LABS: Estimated Average Glucose 108 mg/dL; Hemoglobin A1c % 5.4 % (<6.0); Total Hemoglobin (HGBA1C) 3160.8779 umol/L
[2024-07-17 12:31] LABS: HBc Num1 0.12 S/CO (0.00-0.79); HBsAGNum1 0.43 S/CO (0.00-0.99); HIV AB/AG Nonreactive (Nonreactive); HIV Num 1 0.12 S/CO (0.00-0.99); Hepatitis B Core Antibody Nonreactive (Nonreactive); Hepatitis B Surface Antigen Negative (Negative); ~HepC Num1 0.27 S/CO (0.00-0.79); ~Hepatitis B Surface Antibody NONREACTIVE (Nonreactive); ~Hepatitis C Antibody Nonreactive (Nonreactive)
[2024-07-17 12:36] LABS: Syphilis Screen Nonreactive (Nonreactive)
[2024-07-17 12:39] LABS: Alanine Aminotransferase 17 U/L (0-31); Albumin Level 4.1 g/dL (3.5-5.0); Alkaline Phosphatase 74 U/L (39-117); Anion Gap 8 (12-20); Aspartate Amino Transferase 19 U/L (5-31); Bilirubin Total 0.3 mg/dL (0.0-1.0); Blood Urea Nitrogen 15 mg/dL (9-16); Calcium 8.9 mg/dL (8.4-10.2); Carbon Dioxide 27 mmol/L (22-29); Chloride 108 mmol/L (96-108); Cholesterol 207 mg/dL (<200); Estimated Glomerular Filt Rate > 60; Glucose Random 97 mg/dL (60-115); HDL Cholesterol 51 mg/dL (>40); LDL Cholesterol Calculated 136 mg/dL (<100); Potassium 4.2 mmol/L (3.3-5.1); Sodium 139 mmol/L (135-145); Total Protein 7.5 g/dL (6.5-8.0); Triglycerides 102 mg/dL (<150)
[2024-07-17 12:41] LABS: TSH reflex Free T4 2.15 uIU/mL (0.32-4.0); Vitamin D 25-OH Total 18.9 ng/mL (>30)
[2024-07-18 14:34] LABS: Prolactin 5.3 ng/mL
== END 2024-07-17 09:18 | disposition home or self-care (01) ==
LOC: HO.HHCL 09:17
PROVIDERS: Visit Provider Student in an Organized Health Care Education/Training Program
DX: Z00.00 Encounter for general adult medical examination without abnormal findings (principal); N91.2 Amenorrhea, unspecified; Z11.59 Encounter for screening for other viral diseases
CPT/HCPCS: 36415; 80053; 80061; 82306; 83036; 84146; 84443; 85027; 86704; 86706; 86780; 86803; 87340; 87389

== ENCOUNTER 2024-11-20 13:25 | Outpatient (REF) | payer MEDICAID, SELFPAY ==
--- OUTSIDE RECORDS SUMMARY | 2024-11-20 15:24 | XMS_ITS | Encounter Summary ---
Author Organization [employer] Address [address] [place] [address] Care Team Providers Care Field Marketing Director Name Role Phone Kristan Zurita MD Primary Care Pro vider Encounter Details Date Type Department Care Team (Latest Contact Info) Description 11/20/2024 Travel Social History Tobacco Use Types Packs/Day Years Used Date Smoking Tobacco: Never Smokeless Tobacco: Never Alcohol Use Standard Drinks/Week Comments Never 0 (1 standard drink = 0.6 oz pur e alcohol) Alcohol Answer Date Recorded Frequency of Alcohol Consumption Not on file 09/30/2023 Average Number of Drinks Not on file 024 Frequency of Binge Drinking Not on file 09/10 Score 0 09/30/2023 Depression Answer Date Recorded Patient Health Questionnaire-9 Score 13 11/16/2024 Patient Health Questionnaire-9 Score 13 11/16/2024 Last PHQ-9: Questionnaire Data Not on file 0 11/16/2024 Housing Stability Answer Date Recorded What is your housing situation today? I have ami inge 09/30/[address] you li ve. Do you have problems with any of the following? None of the above 09/30/2023 Food Insecurity Answer Date Recorded Within the past 12 months, y ou worried that your food would run out before you got money to buy more: Never True 09/30/2023 Within the past 12 months,th e food you bought just didn't last and you didn't have enough money to get more: Never True Transportation Answer Date Recorded In the past 12 months, has l ack of transportation kept you from medical appts, meetings, work or from getting things needed for daily living? No 09/30/2023 Utilities Answer Date Recorded In the past 12 months, has t he electric, gas, oil or water company threatened to shut off services in your home? No 09/30/2023 Depression Answer Date Recorded Patient Health Questionnaire-2 Score 3 11/16/2024 Internet Access Answer Date Recorded Internet Access Q1 Yes 05/09/2024 Internet Access Q2 Not on file 05/09/2024 Comments No Sex and Gender Information Value Date Recorded Sex Assigned at Female 06/08/2022 10:14 AM EDT Legal Sex Female 10:14 AM EDT Gender Identity Female 06/08/2022 10:14 AM EDT Sexual Orientation Straight 06/08/2022 10 :14 AM EDT documented as of this encounter Plan of Treatment Upcoming Encounters Date Type Department Care Team (Late st Contact Info) Description 12/11/2024 9:30 AM EDT Nutrition [facility] DIABETES/NUTRITION [address] [place] [id number] [place] [address] 01/17/2025 11:30 AM EDT Office Visit [facility] MEDICINE [address] [place] [phone] Kristan Zurita MD [address] [place] [address] [phone] documented as of this encounter Visit Diagnoses Not on filedocumented in this encounter Additional Health Concerns Assessment Noted Time PHQ-9 Depression Total Score: 13 025 1:53 PM EDT documented as of this encounter Care Teams Field Marketing Director Relationship Specialty Start Date End Date Kristan Zurita MD [address] [place] [id number] PCP - General Internal Medicine 05/23/24 documented as of this encounter
--- OUTSIDE RECORDS SUMMARY | 2024-11-20 15:24 | XMS_ITS | Encounter Summary ---
Author Organization [facility] Address [address] [facility] 7t [place] [address] Care Team Providers Care Agricultural Mechanic Name Role Phone Kristan Zurita MD Primary Care Pro vider Reason for Visit * Reason Comments Gynecologic Exam Encounter Details Date Type Department Care Team (Latest Contact Info) Description 11/20/2024 1:15 PM EDT Procedure Visit [facility] MEDICINE [address], [place] [phone] Arlene Gudino CNM [address] [place] [address] Cervical cancer screening (Primary Dx); Irregular periods; Screening examination for venereal disease Social History Tobacco Use Types Packs/Day Years Used Date Smoking Tobacco: Never Smokeless Tobacco: Never Tobacco Cessation:Counseling Given: Not Answered Alcohol Use Standard Drinks/Week Comments Never 0 [...] your housing situation today? I have ami alcazar 09/30/[address] you li [...] AM EDT documented as of this encounter Last Filed Vital Signs Vital Sign Reading Time Taken Comments Blood Pressure 145/89 11/20/2024 1:04 PM EDT Pulse 90 11/20/2024 1:04 PM EDT Temperature 36.3 ??C (97.4 ??F) 11/20/2024 1:04 PM ED T Respiratory Rate 20 11/20/2024 1:04 PM EDT Oxygen Saturation 98% 11/20/2024 1:04 PM EDT Inhaled Oxygen Concentration - - Weight 152 kg (335 lb) 11/20/2024 1:04 PM EDT Height 162.6 cm (5' 4 ) 11/20/2024 1:04 PM EDT Body Mass Index 57.5 11/20/2024 1:04 PM EDT documented in this encounter Progress Notes * Arlene Gudino CNM - 11/20/2024 1:15 PM EDT Subjective Patient ID: Yulia Ryan is a 29 y.o. 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 Initial pelvic exam in 2018 was very painful, so she has been nervous to return. Reviewed pelvic and pap test procedure and indications. Would like breast and pelvic exam today. Infrequent menses for years, although had menses 09/2024 and 10/2024. Had made some healthy changes in how she eats just prior to that. Estradiol 12 in 09/2023. Normal FSH, LH, DHEA 09/2023. Normal TSH/Prl 07/2024. HIV, syphilis, Hep C neg. Rx'd NET progestin only pill by PCP, pelvic ultrasound ordered recently for dysmenorrhea. Waiting on appointment. Received HPV vaccine series. Last sexually active 3 months ago, [facility] partners. Review of Systems Genitourinary: Positive for menstrual problem. Negative for dyspareunia, dysuria, frequency, genital sores, hematuria, pelvic pain, urgency, vaginal bleeding, vaginal discharge and vaginal pain. No abnormal pap, no abnormal bleeding, no breast pain, no breast mass, no nipple discharge Objective BP (!) 145/89 (BP Location: Left arm, Patient Position: Sitting, BP Cuff Size: Large adult long) Pulse 90 Temp 97.4 ??F (36.3 ??C) (Temporal) Resp 20 Ht 5' 4 (1.626 m) Wt 335 lb (152 kg) LMP 10/31/2024 (Approximate) SpO2 98% BMI 57.50 kg/m?? Physical Exam Constitutional: Appearance: Normal appearance. Chest: Breasts: Right: Normal. No swelling, bleeding, inverted nipple, mass, nipple discharge, skin change or tenderness. Left: Normal. No swelling, bleeding, inverted nipple, mass, nipple discharge, skin change or tenderness. Genitourinary: General: Normal vulva. Labia: Right: No rash, tenderness, lesion or injury. Left: No rash, tenderness, lesion or injury. Vagina: Normal. No signs of injury and foreign body. No vaginal discharge, erythema, tenderness, bleeding or lesions. Cervix: No cervical motion tenderness, discharge, friability, lesion, erythema, cervical bleeding or eversion. Uterus: Normal. Not enlarged and not tender. Adnexa: Right adnexa normal and left adnexa normal. Right: No mass, tenderness or fullness. Left: No mass, tenderness or fullness. Lymphadenopathy: Upper Body: Right upper body: No supraclavicular or axillary adenopathy. Left upper body: No supraclavicular or axillary adenopathy. Neurological: Mental Status: She is alert. Psychiatric: Mood and Affect: Mood normal. Behavior: Behavior normal. Assessment/Plan Diagnoses and all orders for this visit: Cervical cancer screening - Pap Smear Pap sent today. Repeat 3 years if normal. Irregular periods - Estradiol; Future - Testosterone, Total, males (Adult), IA; Future Likely PCOS. Will repeat estradiol with testosterone. Hasn't started NET progestin only pill yet, aware of interaction with Zepbound. Plans to use condoms with oral contraceptive pill. Condoms given today. Let me know if interested in starting another method. Let me know if not scheduled for ultraso und by the time we contact her with labs results. Screening examination for venereal disease - STI testing add on (NG, CT, Trich) Agrees to pap based STI testing today. Advised testing with new partners. documented in this encounter Plan of Treatment Upcoming Encounters Date Type Department Care Team (Late st Contact Info) Description 12/11/2024 9:30 AM EDT Nutrition [facility] DIABETES/NUTRITION [address] [place] [address] [phone] Karie Flores, HANNAH [address] [place] [address] [phone] 01/17/2025 11:30 AM EDT Office Visit [facility] MEDICINE [address] [place] [address] [phone] Kristan Zurita MD [address] [place], [place] [phone] Scheduled Orders Name Type Priority Associated Diagnoses Orde r Schedule Pap Smear Pathology and Cytology Routine Cervical cancer screening Ordered: 11/20/2024 Estradiol Lab Routine Irregular periods Expected: 11/20/2024 (Approximate), Expires: 11/20/2025 Testosterone, Total, males (Adult), IA Lab Routine Irregular periods Expected: 11/20/2024 (Approximate), Expires: 11/20/2025 STI testing add on (NG, CT, Trich) Pathology and Cytology Routine Screening examination for venereal disease Ordered: 11/20/2024 documented as of this encounter Visit Diagnoses Diagnosis Cervical cancer screening- Primary Screening for malignant neoplasm of the cervix Irregular periods Screening examination for venereal disease documented in this encounter Additional Health Concerns Assessment Noted Time PHQ-9 Depression Total Score: 13 025 1:53 PM EDT documented as of this encounter Care Teams Agricultural Mechanic Relationship Specialty Start Date End Date Kristan Zurita MD [address] [place] [phone] PCP - General Internal Medicine 05/23/24 documented as of this encounter
--- OUTSIDE RECORDS SUMMARY | 2024-11-20 15:24 | XMS_ITS | Encounter Summary ---
Author Organization [employer] Address [address] [facility] 7t [place] [address] Care Team Providers Care Acquisitions Assistant Name Role Phone Krsitan Zurita MD Primary Care Pro vider Reason for Visit * Reason Onset Date Comments PA Needed 11/17/2024 Encounter Details Date Type Department Care Team ([facility] Contact Info) Description 11/17/2024 Telephone [facility] MEDICINE [address] [place] [address] Kristan Zurita MD [address] [place] [address] PA Needed Social History Tobacco Use Types Packs/Day Years [...] Access Q2 Not on file 05/09/2024 Comments Unknown Sex and Gender Information Value Date Recorded Sex Assigned at Female 06/08/2022 10:14 AM EDT Legal Sex Female 10:14 AM EDT Gender Identity Female 06/08/2022 10:14 AM EDT Sexual Orientation Straight 06/08/2022 10 :14 AM EDT documented as of this encounter Miscellaneous Notes * Telephone Encounter - Arlette Yen - 11/17/2024 9:48 AM EDT Tc from pt stating a PA is needed for Tirzepatide-Weight Management 2.5 MG/0.5ML. documented in this encounter Plan of Treatment Upcoming Encounters Date Type Department Care Team (Late st Contact Info) Description 12/11/2024 9:30 AM EDT Nutrition [facility] DIABETES/NUTRITION [address] [place] [phone] [place] [address] 01/17/2025 11:30 AM EDT Office Visit [facility] MEDICINE [address] [place] [phone] Kristan Zurita MD [address] [place], [place] [phone] documented as of this encounter Visit Diagnoses Not on filedocumented in this encounter Additional Health Concerns Assessment Noted Time PHQ-9 Depression Total Score: 13 025 1:53 PM EDT documented as of this encounter Care Teams Acquisitions Assistant Relationship Specialty Start Date End Date Kristan Zurita MD [address] [place] [phone] PCP - General Internal Medicine 05/23/24 documented as of this encounter
--- OUTSIDE RECORDS SUMMARY | 2024-11-20 15:24 | XMS_ITS | Encounter Summary ---
Author Organization [employer] Address [address] [facility] 7t [place] [address] Care Team Providers Care Dry House Attendant Name Role Phone Kristan Zurita MD Primary Care Pro vider Encounter Details Date Type Department Care Team ([facility] st Contact Info) Description 07/19/2024 Telephone [facility] MEDICINE [address] [place] [address] Kristan Zurita MD [address] [place], [place] [phone] Social History Tobacco Use Types Packs/Day Years [...] Answer Date Recorded Patient Health Questionnaire-9 Score 20 05/23/2024 Patient Health Questionnaire-9 Score 20 05/23/2024 Last PHQ-9: Questionnaire Data Not on file 1 Housing Stability Answer Date Recorded What is [...] Answer Date Recorded Patient Health Questionnaire-2 Score 6 05/23/2024 Internet Access Answer Date Recorded Internet Access [...] Info) Description 12/11/2024 9:30 AM EDT Nutrition [facility] DIABETES/NUTRITION [address] [place] [phone] Karie Flores, HANNAH [address] [place] [address] 01/17/2025 11:30 AM EDT Office Visit [facility] MEDICINE [address] [place] [phone] Kristan Zurita MD [address] [place] [phone] documented as of this encounter Visit Diagnoses Not on filedocumented in this encounter Additional Health Concerns Assessment Noted Time PHQ-9 Depression Total Score: 20 024 11:05 AM EDT documented as of this encounter Care Teams Dry House Attendant Relationship Specialty Start Date End Date Kristan Zurita MD [address] [place] [phone] PCP - General Internal Medicine 05/23/24 documented as of this encounter
--- OUTSIDE RECORDS SUMMARY | 2024-11-20 15:25 | XMS_ITS | Clinical Summary ---
Author Organization [employer] Address [address] [facility] 7t [place] [address] Care Team Providers Care Latin Professor Name Role Phone Kristan Zurita MD Primary Care Pro vider Allergies No known active allergies Medications * This document contains information received from the source organization and may not represent a complete record from that organization. Multiple Vitamin (multivitamin) tablet Take 1 tablet by mouth Once per day. 90 tablet 1 05/23/2024 Active cholecalciferol (Vitamin D-3) 25 MCG (1000 UT) tablet Take 1 tablet (25 mcg) by mouth Once per day. 90 tablet 3 07/19/2024 Active norethindrone (Micronor) 0.35 MG tabletIndication s:Dysmenorrhea Take 1 tablet (0.35 mg) by mouth Once per day. 28 tablet 2 11/16/2024 Active Tirzepatide-Weig ht Management 2.5 MG/0.5ML solution auto-injectorInd ications:Morbid obesity (CMS/HCC) Inject 0.5 mL (2.5 mg) under the skin 1 (one) time per week. 0.5 mL 1 11/16/2024 Active Active Problems Problem Noted Date Diagnosed Date Encounter for preventive health examination 09/10 Assessment & Plan (09/30/2023 10:44 AM EST): Discussed with patient re increase fresh fruit and vegetable intake. Counseled re moderate exercise as tolerated, up to 20min/d Patient feels safe at home. PAP smear reportedly done at [facility], will obtain PAP report. Eye exam refer to ophthalmology Lipids/FBS up to date, next one due on 04/2024 Vaccinations TD and flu are given today Dental visit up to date, next one due on 01/2024, info given to pt Dietary counseling 09/30/2023 Exercise counseling 09/30/2023 Anxiety 10/12/2013 06/30/2023 Obesity 02/09/2012 06/30/2023 Irregular periods 02/09/2012 06/30/2023 Encounters * This document contains information received from the source organization and may not represent a complete record from that organization. Date Type Department Care Team Description 11/20/2024 1:15 PM EDT Procedure Visit [address] [address] Arlene Gudino CNM Cervical cancer screening (Primary Dx); Irregular periods; Screening examination for venereal disease 11/20/2024 Travel 11/17/[address] [address] Kristan Zurita MD PA Needed 11/16/2024 11:15 AM EDT Office Visit [address] [phone] Kristan Zurita MD Dysmenorrhea (Primary Dx); Dietary counseling; Exercise counseling; Morbid obesity (CMS/HCC); Mood disorder (CMS/HCC) 11/16/2024 Travel 11/07/[address] [address] Kristan Zurita MD chart prep 10/30/[address] [address] Kristan Zurita MD Direct Scheduling Appointemnt [facility] 10/30/[address] [address] Kristan Zurita MD 10/20/2024 Population Health Risk Score [facility] [address] [place] [phone] Provider, Population Health Generic from Last 3 Months Immunizations Name Administration Dates Next Due DTaP 04/18/2001, 8,04/10/1997,01/08,1996 HPV, Quadrivalent 03/28/2010,11/08/2008,11/01/19 08 Hep A, ped/adol, 2 dose 10/12/2013 Hep B, Adolescent or Pediatric 04/10/1997,1996 Hib (HbOC) 11/15/1997,199 7,01/08/1997,11/07 IPV 04/18/2001, 7,01/08/1997,11/07 Influenza injectable quadriv alent IIV4 with preservative 04/29/2018 Influenza injectable quadriv alent preservative free 09/30/2023 Influenza, live, intranasal 08/15/2012 Influenza, seasonal, injecta ble, preservative free 04/22/2016,10/30/2014 MMR 04/18/2001,09/26/1997 Meningococcal MCV4P ACYW-135 11/01/2007 Pfizer Covid-19 Vaccine 12+ 05/23/2024, Pneumococcal Polysaccharide PPSV23 10/30/2014 Tdap 09/30/2023,11/01/2007 Varicella 10/12/2013,02/09/2012 Family History Medical History Relation Name Comments DM2 Maternal Grandfather Dm2 Maternal Grandmother Breast cancer Neg Hx Colon cancer Neg Hx Ovarian cancer Neg Hx Relation Name Status Comments Maternal Grandfather Maternal Grandmother Social History Tobacco Use Types Packs/Day Years [...] Orientation Straight 06/08/2022 10 :14 AM EDT Last Filed Vital Signs Vital Sign Reading [...] Mass Index 57.5 11/20/2024 1:04 PM EDT Plan of Treatment Upcoming Encounters Date Type Department Care Team (Late st Contact Info) Description 12/11/2024 9:30 AM EDT Nutrition [facility] DIABETES/NUTRITION [address] [place] [address] [place], [place] [phone] 01/17/2025 11:30 AM EDT Office Visit [facility] MEDICINE [address] [place], [place] [phone] Kristan Zurita MD [address] [place], [place] [phone] Health Maintenance Due Date Last Done Comments Hepatitis B Vaccines (3 of 3 - 3-dose series) 06/05/1997 04/10/1997, 1996, 1996 Hepatitis A Vaccines (2 of 2 - 2-dose series) 04/14/2014 10/12/2013 Pap Smear 2017 Influenza Vaccine (#1) 2024 , 04/29/2018, 04/22/2016, Additional history exists SDOH Screening 09/30/2024 09/30/2023 Depression Monitoring 05/18/2025 11/16/2024, 025 Alcohol/Substance Use Screening 11/16/2025 11/16/2024 Depression Screening 11/16/2025 11/16/2024, 11/17/19 25 Tobacco Screening 11/16/2025 11/16/2024 Family Planning (PISQ) 11/20/2025 11/20/2024 Lipid Panel 07/17/2029 07/17/2024, 05/07/2023 DTaP/Tdap/Td Vaccines (8 - Td or Tdap) 09/30/2033 09/30/2023, 11/01/2007, 04/18/2001, Additional history exists Zoster Vaccines (1 of 2) 2046 RSV Patients and Patients Aged 60 years or older (1 - 1-dose 75+ series) 2071 HIB Vaccines Completed 11/15/1997, 09/1996, 01/08/1997, Additional history exists IPV Vaccines Completed 04/18/2001, 09/1996, 01/08/1997, Additional history exists Meningococcal Vaccine Aged Out 11/01/2007 No martina edy eligible based on patient's age to complete this topic HPV Vaccines Completed 03/28/2010, 09/2008, 11/01/2007 Pneumococcal Vaccine: Pediatrics (0 to 5 Years) and At-Risk Patients (6 to 49) Years) Aged Out 10/30/2014 No longer eligible based on patient's age to complete this topic COVID-19 Vaccine Completed 05/23/2024, , 12/11/2020 HIV Screening Completed 07/17/2024 Hepatitis C Screening Completed 07/17/2024 RSV under 20 months Aged Out No longe r eligible based on patient's age to complete this topic Rotavirus Vaccines Aged Out No longer eligible based on patient's age to complete this topic Procedures Procedure Name Priority Date/Time Associated Diagnosis Comments POCT , URINE Routine 11/16/2024 12:49 PM EDT Dysmenorrhea AMB REFERRAL TO BARIATRIC SURGERY Routine 10/25/2024 Morbid obesity (CMS/HCC) HEPATITIS C AB W/REFL TO HCV RNA, QN, PCR Routine 07/17/2024 9:20 AM EST Annual physical exam HIV 1/2 ANTIGEN/ANTIBODY, FOURTH GENERATION W/RFL Routine 07/17/2024 9:20 AM EST Annual physical exam LIPID PANEL, STANDARD Routine 07/17/2024 9:20 AM EST Annual physical exam from Last 3 Months or Most Recently Relevant to Health Maintenance Results * POCT Urine (11/16/2024 12:49 PM EDT) Preg Test, Ur Negative Negative, Indeterminate, None Detected, Invalid, Specimen unsatisfactory for evaluation, Weakly Positive QC Media Lot # [id number] Lot# Expiration Date [id number] Urine 11/16/2024 12:4 9 PM EDT us Kristan Sauer MD POINT OF CARE PRETTY T ENTER/EDIT ORDERABLES Final Result * Referral to Bariatric Surgery (10/25/2024) us Kristan Sauer MD OUTPATIENT REFERR AL ORDERABLES Final Result * Hepatitis C Antibody with Reflex to HCV, RNA, Quantitative, Real-Time PCR (07/17/2024 9:20 AM EST) Hepatitis C Antibody Nonreactive Nonreactive [facility] Comment:Antibodies to HCV no t detected; does not exclude early acuteHCV infection. Blood Venous blood specimen / Unknown 07/17/2024 9:20 AM EST 07/17/2024 11:38 AM EST us Kristan Sauer MD LAB BLOOD ORDERAB LES Final Result Performing Organization Address City/[facility]/ZIP Co de Phone Number [facility] [address] [place] [address] [phone] * HIV-1/2 Antigen and Antibodies, Fourth Generation, with Reflexes (07/17/2024 9:20 AM EST) HIV AB/AG Nonreactive Nonreactive [facility] Comment:HIV-1 p24 Ag and/or HIV-1/HIV-2 Ab not detected.A test result that is nonreactive does not exclude thepossibility of exposure to or infection with HIV-1 and/orHIV-2. Nonreactive results in this assay for individualswith prior exposure to HIV-1 and/or HIV-2 may be due toantigen and antibody levels that are below the limit ofdetection of this assay.The [employer] HIV Ag/Ab Combo assay result andsupplemental assay results should be interpreted inconjunction with the patient's clinical presentation,history and other laboratory results. If the results areinconsistent with clinical evidence, additional testing issuggested to confirm the result. Blood Venous blood specimen / Unknown 07/17/2024 9:20 AM EST 07/17/2024 11:38 AM EST us Kristan Sauer MD LAB BLOOD ORDERAB LES Final Result Performing Organization Address City/[facility]/ZIP Co de Phone Number [facility] [address] [place] [phone] [phone] * (ABNORMAL) Lipid Panel, Standard (07/17/2024 9:20 AM EST) Triglycerides 102 <150 mg/dL [facility] Comment:Desirable Triglyceri de: less than 150 mg/dLBorderline High Triglyceride 150-199 mg/dLHigh Triglyceride: 200-499 mg/dLVery High Triglyceride: greater than or equal to 5OO mg/dL Cholesterol 207(H) <200 mg/dL [facility] Comment:Desirable Cholestero l: less than 200 mg/dLBorderline High Cholesterol: 200-239 mg/dLHigh Cholesterol: greater than 239 mg/dL LDL Cholesterol Calculated 136(H) <100 mg/dL [facility] Comment:Desirable LDL: less than 100 mg/dLNear Optimal/Above Optimal LDL: 110- 129 mg/dLBorderline High LDL: 130-159 mg/dLHigh LDL: 160-189 mg/dLVery High LDL: greater than or equal to 190 mg/dL HDL Cholesterol 51 >40 mg/dL [facility] Comment:Desirable HDL: great er than 40 mg/dL Note: This HDL assay may give artificially low results in patients with liver disease. Blood Venous blood specimen / Unknown 07/17/2024 9:20 AM EST 07/17/2024 11:38 AM EST us Kristan Sauer MD LAB BLOOD ORDERAB LES Final Result [facility] [address] [place] [phone] from Last 3 Months or Most Recently Relevant to Health Maintenance Insurance [facility] C3 HSN PARTIAL Care Teams Latin Professor Relationship Specialty Start Date End Date Kristan Zurita MD [address] [place] [phone] PCP - General Internal Medicine 05/23/24
--- OUTSIDE RECORDS SUMMARY | 2024-11-20 15:25 | XMS_ITS | Encounter Summary ---
Author Organization [facility] Address [address] [place] [address] [address] [address] Care Team Providers Care Regional Construction Manager Name Role Phone Kristan Zurita MD Primary Care Pro vider Reason for Referral * Consultation (Routine) - Authorized Specialty Diagnoses / Procedures Referred By Contac t Referred To Contact Psychiatry / Behavioral Health Diagnoses Mood disorder (CMS/HCC) Kristan Zurita MD [address] [place] [address] Phone: tel: fax: Referral ID Status Reason Start Date Expiration Date Visits Requested Visits Authorized [id number] Authorized Specialty Services Required 11/16/2024 11/16/2025 1 1 * Imaging (Routine) - Authorized Specialty Diagnoses / Procedures Referred By Contac t Referred To Contact Radiology Diagnoses Dysmenorrhea Procedures US Pelvis Transvaginal Kristan Zurita MD [address] [place] [address] Phone: tel: fax: [address] Phone: tel: fax: Referral ID Status Reason Start Date Expiration Date V isits Requested Visits Authorized [id number] Authorized 11/16/2024 11/16/2025 1 1 * Imaging (Routine) - Authorized Specialty Diagnoses / Procedures Referred By Contac t Referred To Contact Radiology Diagnoses Dysmenorrhea Procedures Us Pelvis complete Kristan Zurita MD [address] [place] [address] Phone: tel: fax: [address] Phone: tel: fax: Referral ID Status Reason Start Date Expiration Date V isits Requested Visits Authorized [id number] Authorized 11/16/2024 11/16/2025 1 1 Encounter Details Date Type Department Care Team (Late st Contact Info) Description 11/16/2024 11:15 AM EDT Office Visit [facility] MEDICINE [address] [place] [phone] Kristan Zurita MD [address] [place] [address] Dysmenorrhea (Primary Dx); Dietary counseling; Exercise counseling; Morbid obesity (CMS/HCC); Mood disorder (CMS/HCC) Social History Tobacco Use Types Packs/Day Years [...] Sign Reading Time Taken Comments Blood Pressure 135/78 11/16/2024 11:28 AM EDT Pulse 86 11/16/2024 11:28 AM EDT Temperature 36.3 ??C (97.4 ??F) 11/16/2024 11:28 AM E DT Respiratory Rate 20 11/16/2024 11:28 AM EDT Oxygen Saturation 98% 11/16/2024 11:28 AM EDT Inhaled Oxygen Concentration - - Weight 152 kg (335 lb 6.4 oz) 11/16/2024 11:28 A M EDT Height 160 cm (5' 3 ) 11/16/2024 11:28 AM EDT Body Mass Index 59.41 11/16/2024 11:28 AM EDT documented in this encounter Progress Notes * Kristan Sauer MD - 11/16/2024 11:15 AM EDT Subjective Patient ID: Yulia Ryan is a 29 y.o. female who presents for f up apt HPI 29 y o F from [place] w PMX of Obesity,depression/anxiety Comes for f up apt Reports ongoing weight gain ,refuse to continue w bariatric surgery Reports feeling depressed ,anxious as well describes easy irritability ---- --LMP 10/31/2024 ----- Assessment and Plan: Health care maintenance -Annual exam done 05/2024 -contraception : none -no active sexual life -Pap smear: never per pt --referred today w J R --to schedule today -vaccines s/p Tdap 09/2023 , Varicella X2, HPV x 3 , Hep Ax1 Hep B x 2-hep B not immune--will discuss at next apt if interested in vaccination , Covid x 2. MMR x2, reports got flu vaccine at work in 05/2024 , Covid 19 Booster 05/2024 ---- -07/17/2024 vit D 18.9 now on vit D daily -07/17/2024 Total ch 207, LDL 136-life style changes advised-to repeat in 1y Morbid Obesity Gained 31 pounds in last 6 mo BMI 59<--53 S/p Gastric sleeve 2020 at [facility] [place]-states lost care and would like to consider surgery again at a different place -Advised pt to improve diet and exercise,discussed healthy life style -referred to [facility] by pt preference--was seen and told to go to [place] -pt refuse for revison procedure -pt refuse -sleep med 09/2024 mild MARCIA-rec for CPAP -pt to call to check status -referred to business objects architect today -Pt is interested in trying inj --Pt denies any personal or family Hx of thyroid cancer nor Hx of pancreatitis. Pxed today Tirzepatide 2.5 mg inj weekly ,explained possible SE -Contraindication to phentermine: history of agitated states -continue MVI w hx of bariatric surgery Irregular periods /Dysmenorrhea -07/17/2024 prolactin wnl, TSH wnl, -labs done in 09/2023 DHEA wnl, E2 low , LH unclear depends on phase , FSH wnl - Referred for pelvic/transvaginal ultrasound today - Start Micronor for irregular periods and dysmenorrhea. Explained to patient that is used for contraception and needs to be careful given tirzepatide can affect contraception Depression/anxiety PHQ9 20, MINDY 28, no SI Hx of SI but not now ,no attempts, no hallucinations ,does reports epsodes of andrew - called today to eval and refer pt to psychiatrist -has therapist in [facility] -hold on antidepressents until evaluated to r/O Bipolar Review of Systems Constitutional: Positive for unexpected weight change. Objective BP 135/78 (BP Location: Left arm, Patient Position: Sitting, BP Cuff Size: Large adult) Pulse 86 Temp 97.4 ??F (36.3 ??C) (Temporal) Resp 20 Ht 5' 3 (1.6 m) Wt 335 lb 6.4 oz (152 kg) SpO2 98% BMI 59.41 kg/m?? Physical Exam Constitutional: General: She is not in acute distress. Appearance: Normal appearance. She is obese. Neurological: Mental Status: She is alert. Assessment/Plan Problem List Items Addressed This Visit Dietary counseling Exercise counseling Other Visit Diagnoses Dysmenorrhea - Primary Relevant Medications norethindrone (Micronor) 0.35 MG tablet Other Relevant Orders Us Pelvis complete US Pelvis Transvaginal POCT Urine (Completed) Morbid obesity (CMS/HCC) Relevant Medications Tirzepatide-Weight Management 2.5 MG/0.5ML solution auto-injector Mood disorder (CMS/HCC) Relevant Orders Referral to Behavioral Health Psychiatry documented in this encounter Plan of Treatment Upcoming Encounters Date Type Department Care Team (Late st Contact Info) Description 12/11/2024 9:30 AM EDT Nutrition [facility] DIABETES/NUTRITION [address] [place] [phone] [place] [address] 01/17/2025 11:30 AM EDT Office Visit [facility] MEDICINE [address] [place] [address] [phone] Kristan Zurita MD [address] [place], [place] [phone] Scheduled Orders Name Type Priority Associated Diagnoses Orde r Schedule Us Pelvis complete Imaging Routine Dysmenorrhea Expected: 11/16/2024, Expires: 11/16/2025 US Pelvis Transvaginal Imaging Routine Dysmenorrhea Expected: 11/16/2024, Expires: 11/16/2025 Scheduled Referrals Name Type Priority Associated Diagnoses Order Schedule Referral to Behavioral Health Psychiatry Outpatient Referral Routine Mood disorder (CMS/HCC) Expected: 11/16/2024 (Approximate), Expires: 11/16/2025 documented as of this encounter Procedures Procedure Name Priority Date/Time Associated Diagnosis Comments POCT , URINE Routine 11/16/2024 12:49 PM EDT Dysmenorrhea documented in this encounter Results * POCT Urine (11/16/2024 12:49 PM EDT) Preg Test, Ur Negative Negative, Indeterminate, None Detected, Invalid, Specimen unsatisfactory for evaluation, Weakly Positive QC Media Lot # [id number] Lot# Expiration Date [id number] Urine 11/16/2024 12:4 9 PM EDT Kristan Sauer MD POINT OF CARE PRETTY T ENTER/EDIT ORDERABLES Final Result documented in this encounter Visit Diagnoses Diagnosis Dysmenorrhea- Primary Dietary counseling Dietary surveillance and counseling Exercise counseling Morbid obesity (CMS/HCC) Morbid obesity Mood disorder (CMS/HCC) Unspecified episodic mood disorder documented in this encounter Additional Health Concerns Assessment Noted Time PHQ-9 Depression Total Score: 13 025 1:53 PM EDT documented as of this encounter Care Teams Regional Construction Manager Relationship Specialty Start Date End Date Kristan Zurita MD [address] [place] [address] PCP - General Internal Medicine 05/23/24 documented as of this encounter
--- OUTSIDE RECORDS SUMMARY | 2024-11-20 15:25 | XMS_ITS | Encounter Summary ---
Author Organization [employer] Address [address] [place] [address] Care Team Providers Care Mobile Plant Operators Name Role Phone Kristan Zurita MD Primary Care Pro vider Encounter Details Date Type Department Care Team (Latest Contact Info) Description 11/16/2024 Travel Social History Tobacco Use Types Packs/Day [...] Info) Description 12/11/2024 9:30 AM EDT Nutrition [facility] DIABETES/NUTRITION [address] [place] [address] [place] [address] 01/17/2025 11:30 AM EDT Office Visit [facility]INE [address] [place] [address] Kristan Zurita MD [address] [place] [address] [phone] documented as of this encounter Visit Diagnoses Not on filedocumented in this encounter Additional Health Concerns Assessment Noted Time PHQ-9 Depression Total Score: 13 025 1:53 PM EDT documented as of this encounter Care Teams Mobile Plant Operators Relationship Specialty Start Date End Date Kristan Zurita MD [address] [place] [phone] PCP - General Internal Medicine 05/23/24 documented as of this encounter
--- OUTSIDE RECORDS SUMMARY | 2024-11-20 15:25 | XMS_ITS | Encounter Summary ---
Author Organization [email or web address] Address [address] [place] [address] Care Team Providers Care Urban And Regional Planner Name Role Phone Kristan Zurita MD Primary Care Pro vider Encounter Details Date Type Department Care Team ([facility] st Contact Info) Description 07/19/2024 Orders Only [facility] MEDICINE [address] [place], [place] [phone] Ayah Rivera MD [address] [place], [place] [phone] Social History Tobacco Use Types Packs/Day Years [...] is your housing situation today? I have amicori alcazar 09/30/[address] you [...] 12/11/2024 9:30 AM EDT Nutrition [facility] DIABETES/NUTRITION [address] [place] [phone] Karie Flores, HANNAH [address] [place] [address] 01/17/2025 11:30 AM EDT Office Visit [facility] MEDICINE [address] [place] [address] Kristan Zurita MD [address] [place] [address] documented as of this encounter Visit Diagnoses Not on filedocumented in this encounter Additional Health Concerns Assessment Noted Time PHQ-9 Depression Total Score: 20 024 11:05 AM EDT documented as of this encounter Care Teams Urban And Regional Planner Relationship Specialty Start Date End Date Kristan Zurita MD [address] [place] [address] PCP - General Internal Medicine 05/23/24 documented as of this encounter
[2024-11-23 17:27] LABS: Testosterone, Total 33 ng/dL (2-45)
== END 2024-11-20 13:26 | disposition home or self-care (01) ==
LOC: HO.HHCL 13:25
PROVIDERS: Visit Provider Advanced Practice Midwife
DX: N92.6 Irregular menstruation, unspecified (principal)
CPT/HCPCS: 36415; 82670; 84403

== ENCOUNTER 2024-11-20 18:10 | Outpatient (REF) | payer MEDICAID, SELFPAY ==
--- OUTSIDE RECORDS SUMMARY | 2024-11-20 18:43 | XMS_ITS | Encounter Summary ---
Author Organization [employer] Address [address] [facility] [address] [facility] 7t [place] [address] Care Team Providers Care Belt Sander Name Role Phone Kristan Zurita MD Primary Care Pro vider Reason for Visit * Reason Onset Date Comments PA Needed 11/17/2024 Encounter Details Date Type Department Care Team ([facility] Contact Info) Description 11/17/2024 Telephone [facility] MEDICINE [address] [place] [address] Kristan Zurita MD [address] [place] [address] PA Needed Social History Tobacco Use Types [...] Info) Description 12/11/2024 9:30 AM EDT Nutrition [facility] DIABETES/NUTRITION [address] [place] [address] [place] [address] 01/17/2025 11:30 AM EDT Office Visit [facility] MEDICINE [address] [place] [address] Kristan Zurita MD [address] [place], [place] [phone] documented as of this encounter Visit Diagnoses Not on filedocumented in this encounter Additional Health Concerns Assessment Noted Time PHQ-9 Depression Total Score: 13 025 1:53 PM EDT documented as of this encounter Care Teams Belt Sander Relationship Specialty Start Date End Date Kristan Zurita MD [address] [place] [phone] PCP - General Internal Medicine 05/23/24 documented as of this encounter
--- OUTSIDE RECORDS SUMMARY | 2024-11-20 18:43 | XMS_ITS | Encounter Summary ---
Author Organization [facility] Address [address] 7t [place] [address] Care Team Providers Care Mva Reactor Operator Name Role Phone Kristan Zurita MD Primary Care Pro vider Reason for Visit * Reason Comments Gynecologic Exam Encounter Details Date Type Department Care Team (Latest Contact Info) Description 11/20/2024 1:15 PM EDT Procedure Visit [facility] MEDICINE [address] [place], [place] [phone] Arlene Gudino CNM [address] [place] [address] Cervical cancer screening (Primary Dx); Irregular periods; [...] a 29 y.o. 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 Initial pelvic exam [...] Info) Description 12/11/2024 9:30 AM EDT Nutrition [facility] DIABETES/NUTRITION [address] [place] [address] [phone] Karie Flores, HANNAH [address] [place] [address] [phone] 01/17/2025 11:30 AM EDT Office Visit [facility] MEDICINE [address] [place] [address] [phone] Kristan Zurita MD [address] [place], [place] [phone] Scheduled Orders Name Type Priority Associated Diagnoses [...] documented as of this encounter Care Teams Mva Reactor Operator Relationship Specialty Start Date End Date Kristan Zurita MD [address] [place] [phone] PCP - General Internal Medicine 05/23/24 documented as of this encounter
--- OUTSIDE RECORDS SUMMARY | 2024-11-20 18:43 | XMS_ITS | Encounter Summary ---
Author Organization [employer] Address [address] 7[address] [place] [address] Care Team Providers Care Polygraph Technician Name Role Phone Kristan Zurita MD Primary [...] Info) Description 12/11/2024 9:30 AM EDT Nutrition [facility] DIABETES/NUTRITION [address] [place] [address] [place] [address] 01/17/2025 11:30 AM EDT Office Visit [facility] MEDICINE [address] [place] [phone] Kristan Zurita MD [address] [place] [address] [phone] documented as of this encounter Visit Diagnoses Not on filedocumented in this encounter Additional Health Concerns Assessment Noted Time PHQ-9 Depression Total Score: 13 025 1:53 PM EDT documented as of this encounter Care Teams Polygraph Technician Relationship Specialty Start Date End Date Kristan Zurita MD [address] [place] [address] PCP - General Internal Medicine 05/23/24 documented as of this encounter
--- OUTSIDE RECORDS SUMMARY | 2024-11-20 18:43 | XMS_ITS | Encounter Summary ---
Author Organization [employer] Address [address] [place] [address] Care Team Providers Care Svp Of Digital Name Role Phone Kristan Zurita MD Primary [...] [facility] DIABETES/NUTRITION [address] [place] [address] [place] [address] 01/17/2025 11:30 AM EDT Office Visit [facility] MEDICINE [address] [place] [address] Kristan Zurita MD [address] [place] [address] [phone] documented as of this encounter Visit Diagnoses Not on filedocumented in this encounter Additional Health Concerns Assessment Noted Time PHQ-9 Depression Total Score: 13 025 1:53 PM EDT documented as of this encounter Care Teams Svp Of Digital Relationship Specialty Start Date End Date Kristan Zurita MD [address] [place] [address] PCP - General Internal Medicine 05/23/24 documented as of this encounter
--- OUTSIDE RECORDS SUMMARY | 2024-11-20 18:43 | XMS_ITS | Encounter Summary ---
Author Organization [employer] Address [address] [place] [address] Care Team Providers Care Home Delivery Driver Name Role Phone Kristan Zurita MD Primary Care Pro vider Encounter Details Date Type Department Care Team ([facility] st Contact Info) Description 07/19/2024 Orders Only [facility] MEDICINE [address] [place], [place] [phone] Ayah Rivera MD [address] [place], [place] [phone] Social History Tobacco Use Types Packs/Day Years [...] Info) Description 12/11/2024 9:30 AM EDT Nutrition [facility] DIABETES/NUTRITION [address] [place] [address] Karie Flores, HANNAH [address] [place] [address] 01/17/2025 11:30 AM EDT Office Visit [facility] MEDICINE [address] [place] [phone] Kristan Zurita MD [address] [place] [address] documented as of this encounter Visit Diagnoses Not on filedocumented in this encounter Additional Health Concerns Assessment Noted Time PHQ-9 Depression Total Score: 20 024 11:05 AM EDT documented as of this encounter Care Teams Home Delivery Driver Relationship Specialty Start Date End Date Kristan Zurita MD [address] [place] [address] PCP - General Internal Medicine 05/23/24 documented as of this encounter
--- OUTSIDE RECORDS SUMMARY | 2024-11-20 18:43 | XMS_ITS | Encounter Summary ---
Author Organization [facility] [facility] Address [address] [place] [address] [place], [place] [address] Care Team Providers Care Chairman President And Chief Executive Officer Name Role Phone Kristan Zurita MD Primary Care Pro vider Reason for Referral * Consultation (Routine) - Closed Specialty Diagnoses / Procedures Referred By Conrado t Referred To Contact Psychiatry / Behavioral Health Diagnoses Mood disorder (CMS/HCC) Kristan Zurita MD [address] [place] [address] Phone: tel: fax: Referral ID Status Reason Start Date Expiration Date V isits Requested Visits Authorized [id number] Closed Specialty Services Required 11/16/2024 11/16/2025 1 1 * Imaging (Routine) - Authorized Specialty Diagnoses / Procedures Referred By Contleigh t Referred To Contact Radiology Diagnoses Dysmenorrhea Procedures US Pelvis Transvaginal Kristan Zurita MD [address] [place] [address] Phone: tel: fax: [address] Phone: tel: fax: Referral ID Status Reason Start Date Expiration Date V isits Requested Visits Authorized [id number] Authorized 11/16/2024 11/16/2025 1 1 * Imaging (Routine) - Authorized Specialty Diagnoses / Procedures Referred By Contac t Referred To Contact Radiology Diagnoses Dysmenorrhea Procedures Us Pelvis complete Kristan Zurita MD [address] [place] [address] Phone: tel: fax: [address] Phone: tel: fax: Referral ID Status Reason Start Date Expiration Date V isits Requested Visits Authorized [id number] Authorized 11/16/2024 11/16/2025 1 1 Encounter Details Date Type Department Care Team (Late st Contact Info) Description 11/16/2024 11:15 AM EDT Office Visit [facility] MEDICINE [address] [place] [address] Kristan Zurita MD [address] [place] [address] Dysmenorrhea (Primary Dx); Dietary counseling; Exercise counseling; [...] the past 12 months, has t he [employer], gas, oil or water company threatened to [...] apt HPI 29 [place] o F from [place] w PMX of Obesity,depression/anxiety Comes for [...] BMI 59<--53 S/p Gastric sleeve 2020 at [facility] [place]-states lost care and would like to consider surgery again at a different place -Advised pt to improve diet and exercise,discussed healthy life style -referred to [facility] by pt preference--was seen and told to go to [place] -pt refuse for revison procedure -pt refuse -sleep med 09/2024 mild MARCIA-rec for CPAP -pt to call to check status -referred to sample card maker today -Pt is interested in trying inj [...] refer pt to psychiatrist -has therapist in [facility] -hold on antidepressents until evaluated to r/O [...] Info) Description 12/11/2024 9:30 AM EDT Nutrition [facility] DIABETES/NUTRITION [address] [place] [phone] [place] [address] 01/17/2025 11:30 AM EDT Office Visit [facility] MEDICINE [address] [place] [address] [phone] Kristan Zurita MD [address] [place], [place] [phone] Scheduled Orders Name Type Priority Associated Diagnoses [...] Media Lot # [id number] Lot# Expiration Date [id number] Urine 11/16/2024 12:4 9 PM EDT Kristan [...] documented as of this encounter Care Teams Chairman President And Chief Executive Officer Relationship Specialty Start Date End Date Kristan Zurita MD [address] [place] [address] PCP - General Internal Medicine 05/23/24 documented as of this encounter
--- OUTSIDE RECORDS SUMMARY | 2024-11-20 18:43 | XMS_ITS | Clinical Summary ---
Author Organization [employer] Address [address] [facility] [address] [place] [address] Care Team Providers Care Counter Helper Name Role Phone Kristan Zurita MD Primary [...] at home. PAP smear reportedly done at [facility], will obtain PAP report. Eye exam [...] Description 11/20/2024 1:15 PM EDT Procedure Visit [address] [address] Arlene Gudino CNM Cervical cancer screening (Primary Dx); Irregular periods; Screening examination for venereal disease 11/20/2024 Travel 11/17/[address] [address] Kristan Zurita MD PA Needed 11/16/2024 11:15 AM EDT Office Visit [address] [address] Kristan Zurita MD Dysmenorrhea (Primary Dx); Dietary counseling; Exercise counseling; Morbid obesity (CMS/HCC); Mood disorder (CMS/HCC) 11/16/2024 Travel 11/07/[address] [address] Kristan Zurita MD chart prep 10/30/[address] [address] Kristan Zurita MD Direct Scheduling Appointemnt [facility] 10/30/[address] [address] Kristan Zurita MD 10/20/2024 Population Health Risk Score [facility] Department [address] [place] [phone] Provider, Population Health Generic from Last 3 [...] Info) Description 12/11/2024 9:30 AM EDT Nutrition [facility] DIABETES/NUTRITION [address] [place] [address] [place], [place] [phone] 01/17/2025 11:30 AM EDT Office Visit [facility] MEDICINE [address] [place], [place] [phone] Kristan Zurita MD [address] [place], [place] [phone] Health Maintenance Due Date Last Done Comments [...] Media Lot # [id number] Lot# Expiration Date [id number] Urine 11/16/2024 12:4 9 PM EDT us Kristan Sauer MD POINT OF CARE PRETTY T ENTER/EDIT ORDERABLES Final Result * Referral to Bariatric Surgery (10/25/2024) us Kristan Sauer MD OUTPATIENT REFERR AL ORDERABLES Final Result * Hepatitis C Antibody with Reflex to HCV, RNA, Quantitative, Real-Time PCR (07/17/2024 9:20 AM EST) Hepatitis C Antibody Nonreactive Nonreactive [facility] Comment:Antibodies to HCV no t detected; does not exclude early acuteHCV infection. Blood Venous blood specimen / Unknown 07/17/2024 9:20 AM EST 07/17/2024 11:38 AM EST us Kristan Sauer MD LAB BLOOD ORDERAB LES Final Result Performing Organization Address City/[facility]/ZIP Co de Phone Number [facility] [address] [place] [address] [phone] * HIV-1/2 Antigen and Antibodies, Fourth Generation, with Reflexes (07/17/2024 9:20 AM EST) HIV AB/AG Nonreactive Nonreactive [facility] Comment:HIV-1 p24 Ag and/or HIV-1/HIV-2 Ab not detected.A test result that is nonreactive does not exclude thepossibility of exposure to or infection with HIV-1 and/orHIV-2. Nonreactive results in this assay for individualswith prior exposure to HIV-1 and/or HIV-2 may be due toantigen and antibody levels that are below the limit ofdetection of this assay.The Rezzcardnity HIV Ag/Ab Combo assay result andsupplemental assay results should be interpreted inconjunction with the patient's clinical presentation,history and other laboratory results. If the results areinconsistent with clinical evidence, additional testing issuggested to confirm the result. Blood Venous blood specimen / Unknown 07/17/2024 9:20 AM EST 07/17/2024 11:38 AM EST us Kristan Sauer MD LAB BLOOD ORDERAB LES Final Result Performing Organization Address City/[facility]/ZIP Co de Phone Number [facility] [address] [place] [phone] * (ABNORMAL) Lipid Panel, Standard (07/17/2024 9:20 AM EST) Triglycerides 102 <150 mg/dL [facility] Comment:Desirable Triglyceri de: less than 150 mg/dLBorderline High Triglyceride 150-199 mg/dLHigh Triglyceride: 200-499 mg/dLVery High Triglyceride: greater than or equal to 5OO mg/dL Cholesterol 207(H) <200 mg/dL [facility] Comment:Desirable Cholestero l: less than 200 mg/dLBorderline High Cholesterol: 200-239 mg/dLHigh Cholesterol: greater than 239 mg/dL LDL Cholesterol Calculated 136(H) <100 mg/dL [facility] Comment:Desirable LDL: less than 100 mg/dLNear Optimal/Above Optimal LDL: 110- 129 mg/dLBorderline High LDL: 130-159 mg/dLHigh LDL: 160-189 mg/dLVery High LDL: greater than or equal to 190 mg/dL HDL Cholesterol 51 >40 mg/dL [facility] Comment:Desirable HDL: great er than 40 mg/dL Note: This HDL assay may give artificially low results in patients with liver disease. Blood Venous blood specimen / Unknown 07/17/2024 9:20 AM EST 07/17/2024 11:38 AM EST us Kristan Sauer MD LAB BLOOD ORDERAB LES Final Result [facility] [address] [place] [phone] from Last 3 Months or Most Recently Relevant to Health Maintenance Insurance [facility] C3 HSN PARTIAL Care Teams Counter Helper Relationship Specialty Start Date End Date Kristan Zurita MD [address] [place] [phone] PCP - General Internal Medicine 05/23/24
--- OUTSIDE RECORDS SUMMARY | 2024-11-20 18:43 | XMS_ITS | Encounter Summary ---
Author Organization [employer] Address [address] [facility] 7[address] [place] [address] Care Team Providers Care Finisher Card Tender Name Role Phone Kristan Zurita MD Primary Care Pro vider Encounter Details Date Type Department Care Team ([facility] st Contact Info) Description 07/19/2024 Telephone [facility] MEDICINE [address] [place] [address] Kristan Zurita MD [address] [place], [place] [phone] Social History Tobacco Use Types Packs/Day Years [...] 12/11/2024 9:30 AM EDT Nutrition [facility] DIABETES/NUTRITION [address] [place] [phone] Karie Flores, [place]ANNAH [address] [place] [address] 01/17/2025 11:30 AM EDT Office Visit [facility] MEDICINE [address] [place] [phone] Kristan Zurita MD [address] [place] [phone] documented as of this encounter Visit Diagnoses Not on filedocumented in this encounter Additional Health Concerns Assessment Noted Time PHQ-9 Depression Total Score: 20 024 11:05 AM EDT documented as of this encounter Care Teams Finisher Card Tender Relationship Specialty Start Date End Date Kristan Zurita MD [address] [place] [phone] PCP - General Internal Medicine 05/23/24 documented as of this encounter
[2024-11-23 21:18] LABS: C. trachomatis RNA TMA NOT DETECTED (NOT DETECTED); N. gonorrhoeae RNA TMA NOT DETECTED (NOT DETECTED); Trichomonas (NAAT) NOT DETECTED (NOT DETECTED)
== END 2024-11-20 18:11 | disposition home or self-care (01) ==
LOC: HO.HHCLNP 18:10
PROVIDERS: Visit Provider Advanced Practice Midwife
DX: Z12.4 Encounter for screening for malignant neoplasm of cervix (principal); Z11.3 Encounter for screening for infections with a predominantly sexual mode of transmission
CPT/HCPCS: 87491; 87591; 87661; 88175